=== PATIENT | female | born 1970 | race Caucasian/White ===

== ENCOUNTER 2019-12-09 08:46 | Emergency (ER) | payer MEDICAID, SELFPAY ==
[2019-12-09 09:48] VITALS: BP 201/115; PULSE 105; RESP 16; TEMP 37; O2SAT 98; BMI 26.2
--- NOTE | 2019-12-09 10:02 | XR_ITS ---
EXAMINATION: XR CHEST CLINICAL INFORMATION: Dry cough, bilateral posterior chest pain. COMPARISON: Chest radiographs 03/05/2018, 10/28/2016 TECHNIQUE: 2 views of the chest were obtained. FINDINGS: The lungs are clear. There is no pneumothorax, airspace consolidation, pleural reaction, or effusion. There is an incidental chronic calcified granuloma left lateral upper lobe similar to prior studies dating back to 2017. The heart is normal in size. The hilar and mediastinal contours and visualized bony structures are unremarkable. IMPRESSION: Unremarkable examination.
[2019-12-09] MEDS: Albuterol/Iprat 2.5/0.5MG 3 ML AMPUL.NEB 5 ML INHALE (10:29)
[2019-12-09 10:43] LABS: MANUAL DIFF FLAG NO
[2019-12-09 10:47] LABS: Basophils Percent Auto 0.2 % (0-2); Eosinophils Absolute Auto 0.1 X10*3/uL (0.0-0.4); Eosinophils Percent Auto 1.2 % (0-4); Hematocrit 35.6 % (37-47); Hemoglobin 12.1 g/dl (12.0-16.0); Imm Gran Abs Auto 0.01 X10*3/uL (0.00-0.03); Imm Gran Pct Auto 0.2 % (0.0-0.4); Lymphocytes Absolute Auto 1.2 X10*3/uL (1.2-4.9); Lymphocytes Percent Auto 29.3 % (20-40); Mean Corpuscular Hemoglobin 28.7 pg (27.0-33.0); Mean Corpuscular Volume 84.6 fL (80-98); Mean Platelet Volume 12.3 fL (9.4-12.3); Monocytes Absolute Auto 0.3 X10*3/uL (0.1-1.2); Monocytes Percent Auto 8.3 % (2-11); Neutrophils Absolute Auto 2.5 X10*3/uL (2.0-8.3); Neutrophils Percent Auto 60.8 % (45-73); Platelet Count 143 X10*3/uL (160-400); Red Blood Count 4.21 X10*6/uL (4.20-5.50); Red Cell Distribution Width 12.4 % (11.0-16.0); White Blood Count 4.1 X10*3/uL (4.8-10.8)
[2019-12-09 10:53] LABS: INTERNATIONAL NORM RATIO 1.1 (0.9-1.1); Prothrombin Time 12.8 SEC (10.8-13.0)
[2019-12-09 10:57] LABS: D Dimer < 200 NG/ML
[2019-12-09 11:18] LABS: Alanine Aminotransferase 6 U/L (0-31); Albumin Level 4.3 g/dL (3.5-5.0); Alkaline Phosphatase 45 U/L (39-117); Anion Gap 11 (12-20); Aspartate Amino Transferase 12 U/L (5-31); Bilirubin Direct 0.2 mg/dL (0.0-0.5); Bilirubin Total 0.5 mg/dL (0.0-1.0); Blood Urea Nitrogen 9 mg/dL (9-16); Calcium 8.9 mg/dL (8.4-10.2); Carbon Dioxide 27 mmol/L (22-29); Chloride 107 mmol/L (96-108); Creatinine Clr Calc Pharmacy 75.4; Estimated Glomerular Filt Rate > 60; Glucose Random 93 mg/dL (60-115); Potassium 3.6 mmol/l (3.3-5.1); Sodium 141 mmol/L (135-145); Total Protein 6.5 g/dL (6.5-8.0)
[2019-12-09] MEDS: Cyclobenzaprine HCl 10 MG TABLET PO (11:37)
[2019-12-09] MEDS: guaiFEN/Codeine SF 200/20/10ML 10 ML LIQUID PO (11:37)
[2019-12-09] MEDS: Acetaminophen 325 MG TABLET 650 MG PO (11:38)
[2019-12-09 11:40] VITALS: BP 134/74; PULSE 74; RESP 16
[2019-12-09 11:41] LABS: Procalcitonin < 0.02 ng/mL
--- NOTE | 2019-12-09 11:54 | ED_ITS ---
HPI - Asthma General Chief Complaint: Back Pain/Injury Stated Complaint: BACK PAIN Time Seen by Provider: 12/09/19 09:39 Source: patient Mode of arrival: ambulatory Limitations: no limitations History of Present Illness HPI Narrative: 49yoF c PMHx of asthma presenting to the ED c c/o worsening dry cough c posterior lung pain c wheezing. reports she has been using her albuterol inhaler with mild symptomatic relief. Reports she has a nebulizer machine which she has not used at this time. Reports she has the appointment with a rollway worker coming up. Denies any fevers, chills, body aches, ear pain, sore throat, mucus production, chest pain, extremity swelling, pitting edema to extremities, weakness or any other symptoms complaints or concerns. Denies any recent travel or sick contacts. Related Data Allergies Allergy/AdvReac Type Severity Reaction Status Date / Time aspirin [ASPIRIN] Allergy Unknown RASH Verified 12/09/19 09:48 Review of Systems Review of Systems: Yes all other systems are reviewed and are negative PMFSH Past Medical History Attestation statement: The following information was validated with the patient. Medical History No known health problems Social History Social History Smoking Status: Never smoker Use of substances other than those prescribed or required for medical reasons: No Advance Directives: No Advance Directives Information Provided: No Physical Exam Vital Signs: Vital Signs: Vital Signs Temp Pulse Resp BP Pulse Ox 12/09/19 11:40 74 16 134/74 12/09/19 09:48 98.6 F 105 H 16 201/115 H 98 Body Mass Index 26.2 Const: General: cooperative, healthy appearing, comfortable, no acute distress, well developed, alert, awake and Physically active Nutritional Appearance: average body habitus and well nourished Orientation/consciousness: patient oriented x3 Limitations: no limitations HENMT: Head: Yes normal to inspection, Yes No palpable skull fracture present, Yes normocephalic and Yes atraumatic Ears: hearing grossly normal bilaterally General nose exam: Normal external nose present Face and sinus: Yes normal facial exam Mouth: moist mucous membranes Eyes: General: appearance normal, both eyes and all related structures Visual Sev[place]: normal visual sevilla by confrontation Alignment and Position: alignment normal Periorbital: periorbital findings normal Eyelids: Yes eyelids normal Conjunctivae: conjunctivae normal Sclerae: sclerae normal Pupils: Equal, round and reactive pupils present EOM: EOMs intact bilaterally Neck: Neck: Yes normal visual inspection, Yes full ROM, Yes no lymphadenopathy, Yes no meningeal signs, Yes trachea midline and Yes supple Chest: Chest palpation & inspection: normal inspection of the chest Resp: Effort & Inspection: normal respiratory effort, able to speak in complete sentences, audible wheezes, Actively coughing, respiratory effort not d ecreased, no grunting, not labored, no nasal flaring, no paradoxical thoraco- abdom movements, no pursed lip breathing, no respiratory distress, no retractions, no segmental paradox chest wall movement, no stridor, not tachypneic, no tracheal deviation, no tripod positioning, no use of accessory muscles, No prolonged expiratory phase and symmetric chest movement Auscultation: clear to auscultation bilaterally, no crackles, no rales, no rhonchi, wheezes expiratory wheezes, inspiratory wheezes and throughout and diminished lung sounds diffuse Cardio: Rate: regular rate Rhythm: regular rhythm Heart sounds: S1 normal heart sound present and S2 normal heart sound present Peripheral pulses: Peripheral pulses 2+ throughout GI: Inspection: Yes normal to inspection Palpation (GI): Soft to palpation, nontender and No hepatosplenomegaly present Percussion: Yes normal to percussion Auscultation: normal bowel sounds : General: Yes no CVA tenderness Back/Spine/Pelvis: Back: no CVA tenderness Cervical Spine: normal cervical lordosis and cervical ROM normal Thoracic/Lumbar Spine: thoracic and lumbar spine normal to inspection and thoraco-lumbar ROM normal Skin: General skin exam: no rashes or lesions noted, elasticity normal and turgor normal Trauma: no lacerations or abrasions Wounds: no wounds Hair: normal Nails: normal Neuro: General: patient oriented x3 and no meningeal signs Cranial nerves: Yes CN's II-XII intact bilaterally and Yes Equal, round and reactive pupils present Cognition (Neuro): normal cognition Gait exam (Neuro): Normal gait present Motor exam (neuro): 5/5 motor strength present throughout Extrem: General: Yes normal to inspection, Yes full ROM, Yes capillary refill normal, Yes no clubbing, cyanosis or edema, No no pedal edema, No no calf te nderness, Yes normal gait and No edema Right upper extremity: normal to inspection, full ROM and normal capillary refill; no edema Left upper extremity: normal to inspection, full ROM and normal capillary refill; no edema Right lower extremity: normal to inspection, full ROM and normal capillary refill; no edema Left lower extremity: normal to inspection, full ROM and normal capillary refill; no edema Psych: Appearance: grossly normal and well kempt Mental Status: mental status grossly normal Speech and movement: Normal speech and movement present and Clear speech present Affect: normal affect Attitude: cooperative Thought process: Normal thought process present Thought content: Normal thought content present Insight: Good insight present (Psych) Judgement: Good judgement present (Psych) Course Course Course Narrative: 49yoF c PMHx of asthma presenting to the ED c c/o worsening dry cough c posterior lung pain c wheezing. reports she has been using her albuterol inhaler with mild symptomatic relief. Reports she has a nebulizer machine which she has not used at this time. Reports she has the appointment with a rollway worker coming up. Denies any fevers, chills, body aches, ear pain, sore throat, mucus production, chest pain, extremity swelling, pitting edema to extremities, weakness or any other symptoms complaints or concerns. Denies any recent travel or sick contacts. - Concern for pneumonia vs COVID vs pulmonary embolism vs asthma exacerbation. - Plan: Labs Including COVID labs, D-dimer, chest x-ray. Provide breathing treatment along with a muscle relaxer and cough medicine then re-evaluate. Reevaluation(s) Reevaluation #1: Patient's white blood cell count 4.1 otherwise all other labs are within normal limits. D-dimer less than 200 therefore PE unlikely at this time. Chest x-ray revealed incidental chronic calcified granuloma left lateral upper lobe similar to prior studies dating back to 2017 no evidence of pneumonia or any other acute processes. I discussed this with the patient and she was not told back in 2017 therefore will give her a printout and instruct her to follow up with her primary care provider and her rollway worker about the incidental calcified granuloma in her left upper lobe. Patient reports she feels better after the breathing treatment and her exam improved she no longer has any wheezing on expiratory or inspiratory breathing. Her blood pressure went down to 134/74 and her pulse is now at 74 both has improved. Will DC home with symptomatic treatment along with antibiotics and instructions to return if any new or worsening symptoms. Will also test for COVID. Instructions follow- up with primary care provider and rollway worker. Patient understands agrees with this plan. [facility] - Asthma Medical Records Attestation: I reviewed the patient's medical records. Lab Data Attestation: I reviewed the patient's lab results. Result diagrams: 12/09/19 10:37 12/09/19 10:36 Labs: Lab Results 12/09/19 12/09/19 12/09/19 Range/Units 10:36 10:36 10:36 WBC (4.8-10.8) X10*3/uL RBC (4.20-5.50) X10*6/uL Hgb (12.0-16.0) g/dl Hct (37-47) % MCV (80-98) fL MCH (27.0-33.0) pg MCHC (31.0-35.0) g/dl RDW (11.0-16.0) % Plt Count (160-400) X10*3/uL MPV (9.4-12.3) fL Immature Gran % (Auto) (0.0-0.4) % Neut % (Auto) (45-73) % Lymph % (Auto) (20-40) % [place] % (Auto) (2-11) % Eos % (Auto) (0-4) % Baso % (Auto) (0-2) % Lymph # (Auto) (1.2-4.9) X10*3/uL [place] # (Auto) (0.1-1.2) X10*3/uL Eos # (Auto) (0.0-0.4) X10*3/uL Baso # (Auto) (0.0-0.2) X10*3/uL Abs Immat Gran (auto) (0.00-0.03) X10*3/uL Absolute Neuts (auto) (2.0-8.3) X10*3/uL Absolute Nucleated RBC (0.0-0.012) X10*3/uL Nucleated RBC % (auto) (0.0-0.2) /100WBC Hold Purple Top SEE NOTE PT 12.8 (10.8-13.0) SEC INR 1.1 (0.9-1.1) D-Dimer < 200 NG/ML Sodium 141 (135-145) mmol/L Potassium 3.6 (3.3-5.1) mmol/l Chloride 107 (96-108) mmol/L Carbon Dioxide 27 (22-29) mmol/L Anion Gap 11 L (12-20) BUN 9 (9-16) mg/dL Creatinine 0.79 (0.5-1.4) mg/dL Estim Creat Clear Calc 75.4 Estimated GFR > 60 Random Glucose 93 (60-115) mg/dL Calcium 8.9 (8.4-10.2) mg/dL Total Bilirubin 0.5 (0.0-1.0) mg/dL Direct Bilirubin 0.2 (0.0-0.5) mg/dL AST 12 (5-31) U/L ALT 6 (0-31) U/L Alkaline Phosphatase 45 (39-117) U/L Total Protein 6.5 (6.5-8.0) g/dL Albumin 4.3 (3.5-5.0) g/dL Procalcitonin ng/mL 12/09/19 10 Range/Units 10:37 10:37 WBC 4.1 L (4.8-10.8) X10*3/uL RBC 4.21 (4.20-5.50) X10*6/uL Hgb 12.1 (12.0-16.0) g/dl Hct 35.6 L (37-47) % MCV 84.6 (80-98) fL MCH 28.7 (27.0-33.0) pg MCHC 34.0 (31.0-35.0) g/dl RDW 12.4 (11.0-16.0) % Plt Count 143 L (160-400) X10*3/uL MPV 12.3 (9.4-12.3) fL Immature Gran % (Auto) 0.2 (0.0-0.4) % Neut % (Auto) 60.8 (45-73) % Lymph % (Auto) 29.3 (20-40) % [place] % (Auto) 8.3 (2-11) % Eos % (Auto) 1.2 (0-4) % Baso % (Auto) 0.2 (0-2) % Lymph # (Auto) 1.2 (1.2-4.9) X10*3/uL [place] # (Auto) 0.3 (0.1-1.2) X10*3/uL Eos # (Auto) 0.1 (0.0-0.4) X10*3/uL Baso # (Auto) 0.0 (0.0-0.2) X10*3/uL Abs Immat Gran (auto) 0.01 (0.00-0.03) X10*3/uL Absolute Neuts (auto) 2.5 (2.0-8.3) X10*3/uL Absolute Nucleated RBC 0.000 (0.0-0.012) X10*3/uL Nucleated RBC % (auto) 0.0 (0.0-0.2) /100WBC Hold Purple Top PT (10.8-13.0) SEC INR (0.9-1.1) D-Dimer NG/ML Sodium (135-145) mmol/L Potassium (3.3-5.1) mmol/l Chloride (96-108) mmol/L Carbon Dioxide (22-29) mmol/L Anion Gap (12-20) BUN (9-16) mg/dL Creatinine (0.5-1.4) mg/dL Estim Creat Clear Calc Estimated GFR Random Glucose (60-115) mg/dL Calcium (8.4-10.2) mg/dL Total Bilirubin (0.0-1.0) mg/dL Direct Bilirubin (0.0-0.5) mg/dL AST (5-31) U/L ALT (0-31) U/L Alkaline Phosphatase (39-117) U/L Total Protein (6.5-8.0) g/dL Albumin (3.5-5.0) g/dL Procalcitonin < 0.02 ng/mL Imaging Data Chest x-ray: Attestation: I personally reviewed and interpreted this imaging study as follows: Radiologist's impression: FINDINGS: The lungs are clear. There is no pneumothorax, airspace consolidation, pleural reaction, or effusion. There is an incidental chronic calcified granuloma left lateral upper lobe similar to prior studies dating back to 2017. The heart is normal in size. The hilar and mediastinal contours and visualized bony structures are unremarkable. IMPRESSION: Unremarkable examination.
[2019-12-09 12:44] LABS: Lactate Dehydrogenase 152 U/L (122-220); Magnesium 2.1 mg/dL (1.6-2.6)
[2019-12-09 13:04] LABS: Ferritin 55 ng/mL (10-250)
== END 2019-12-09 13:16 | disposition home or self-care (01) ==
PROVIDERS: Physician Assistant Medical; Emergency Provider Emergency Medicine; PCP Internal Medicine
DX: J45.909 Unspecified asthma, uncomplicated (principal); R05 Cough; Z20.828 Contact with and (suspected) exposure to other viral communicable diseases; Z79.899 Other long term (current) drug therapy
CPT/HCPCS: 36415; 71046; 80048; 80076; 82728; 83615; 83735; 84145; 85025; 85379; 85610; 87635; 99284

== ENCOUNTER 2019-12-29 14:15 | Outpatient (REF) | payer MEDICAID, SELFPAY ==
--- NOTE | 2019-12-29 | MM_ITS ---
EXAMINATION: MM DIAGNOSTIC DIGITAL BREAST TOMOSYNTHESIS, BILATERAL US BREAST, LEFT CLINICAL INFORMATION: Screening mammography and targeted left breast ultrasound. The lifetime risk of breast cancer based on the Tyrer-Cuzick Model is 7.9%. COMPARISON: Mammography: 12/06/2018 and studies dating back to 10/16/2011. TECHNIQUE: Digital breast tomosynthesis is performed in both the craniocaudal and mediolateral oblique views along with computer-aided detection (CAD). Synthesized 2D images are generated from the tomosynthesis. Targeted left breast ultrasound. FINDINGS: The breasts are extremely dense, which lowers the sensitivity of mammography (ACR BI-RADS breast composition Category d). There are again noted to be multiple stable smoothly circumscribed nodular densities within the right breast. No new more suspicious dominant mass or suspicious grouping of microcalcifications is identified. There are multiple stable circumscribed densities seen within the left breast. No new abnormal dominant mass or suspicious grouping of microcalcifications is identified. Ultrasound left breast 9 o'clock position, 2 cm from nipple, demonstrates a stable smoothly marginated hypoechoic lesion without internal vascularity and with increased through-sound transmission. No distal sound shadowing. This likely represents a fibroadenoma and has been stable since study of 11/27/2017. Results are discussed with the patient at time of visit. MM/MM tomosynthesis diagnostic BI IMPRESSION: Stable appearance of the breasts with no new abnormal dominant mass or suspicious grouping of microcalcifications. ASSESSMENT: BI-RADS 2: Benign. RECOMMENDATION: Routine annual mammography screening due in 12 months. This patient's information was entered into a reminder system with a target due date for their next mammogram.
== END 2019-12-29 14:16 | disposition home or self-care (01) ==
LOC: HO.MAMMO 14:15
PROVIDERS: PCP Internal Medicine; Visit Provider Advanced Practice Midwife
DX: N63.20 Unspecified lump in the left breast, unspecified quadrant (principal)
CPT/HCPCS: 76642; 77062; 77066

== ENCOUNTER → 2020-01-12 12:32 | Outpatient (BNVA) | payer MEDICAID, SELFPAY | PROVIDERS: PCP Internal Medicine; Referring Provider Internal Medicine; Visit Provider Nurse Practitioner Family | DX: Z13.89 Encounter for screening for other disorder (principal) ==

== ENCOUNTER 2020-01-31 13:36 | Outpatient (REF) | payer MEDICAID, SELFPAY ==
[2020-02-03 15:47] LABS: HPV mRNA E6/E7 rflx Not Detected (Not Detected)
== END 2020-01-31 13:37 | disposition home or self-care (01) ==
LOC: HO.LAB 13:36
PROVIDERS: Visit Provider Advanced Practice Midwife
DX: Z01.419 Encounter for gynecological examination (general) (routine) without abnormal findings (principal)
CPT/HCPCS: 87624; 87625; 88141; 88142

== ENCOUNTER 2020-03-17 10:10 | Emergency (ER) | payer MEDICAID, SELFPAY ==
[2020-03-17 10:18] VITALS: BP 128/59; PULSE 68; RESP 18; TEMP 36.6; O2SAT 95; BMI 25.6
--- NOTE | 2020-03-17 10:40 | XR_ITS ---
EXAMINATION: XR CHEST CLINICAL INFORMATION: Bilateral rib cage pain COMPARISON: Chest x-ray 12/09/2019 TECHNIQUE: 2 views of the chest were obtained. FINDINGS: Cardiac silhouette is normal in size. The lungs are well aerated. There is no lobar consolidation. No pleural effusion or pneumothorax. Tiny granuloma the left upper lobe again noted. Mild degenerative changes of the spine. XR/XR chest 2V IMPRESSION: Stable examination demonstrating no acute pulmonary pathology.
--- NOTE | 2020-03-17 10:55 | ED_ITS ---
HPI - Back Pain/Injury General Chief Complaint: Back Pain/Injury Stated Complaint: back pain Time Seen by Provider: 03/17/20 10:40 Source: patient Mode of arrival: ambulatory Limitations: no limitations History of Present Illness HPI Narrative: 49yoF c MHx of asthma, anemia, GERD and depression presenting to the ED with complaints of upper/mid/bilateral rib cage pain for the past 2 weeks due to coughing. Reports that she has a chronic cough due to asthma and for the past 2 weeks has been going into coughing fits despite using her albuterol inhalers and nebulizers. Denies any fevers, chills, headaches, dizziness, nausea/vomiting, jaw pain, chest pain, shortness of breath, sputum production, sore throat, runny nose or nasal congestion, dyspnea on exertion, orthopnea, palpitations, extremity edema or any other symptoms complaints or concerns at this time. Related Data Home Medications Medication Instructions Recorded Confirmed albuterol sulfate 90 mcg/actuation 2 puff INHALATION Q6H PRN 01/12/20 02/28/20 aerosol inhaler clonazepam 0.5 mg tablet 0.5 mg PO BID 01/12/20 02/28/20 fluticasone propionate 110 1 puff INHALATION BID 01/12/20 02/28/20 mcg/actuation HFA aerosol inhaler gabapentin 600 mg tablet 600 mg PO TID 01/12/20 02/28/20 sertraline 50 mg tablet 50 mg PO DAILY 01/12/20 02/28/20 Previous Rx's Medication Instructions Recorded azithromycin [Zithromax] See Rx Instructions PO .COMPLEX #6 12/09/19 tab codeine-guaifenesin 5 ml PO Q6H PRN 7 Days #473 ml 12/09/19 cyclobenzaprine 10 mg PO TID PRN #14 tab 12/09/19 bisacodyl 5 mg tablet,delayed 10 mg PO ONCE 1 Days #2 tab 01/12/20 release omeprazole 20 mg capsule,delayed 20 mg PO DAILY #30 cap 01/12/20 release polyethylene glycol 3350 17 17 g PO ONCE #510 g 01/12/20 gram/dose oral powder acetaminophen-codeine 1 tab PO Q8H PRN #10 tab 03/17/20 cyclobenzaprine 10 mg PO TID PRN #10 tab 03/17/20 Allergies Allergy/AdvReac Type Severity Reaction Status Date / Time aspirin [ASPIRIN] Allergy Unknown RASH Verified 12/09/19 09:48 Review of Systems Review of Systems: Constitutional : No trauma, No Weight loss, No Fever, No Chills, ENT/Mouth : No Hearing loss, No Ear Pain, No Nasal Congestion, No Sinus Pain, No Hoarseness, No sore throat, No Rhinorrhea, No Swallowing Difficulty Cardiovascular : No Chest Pain, No SOB Respiratory : + Cough, No Dyspnea Gastrointestinal : No Nausea, No Vomiting, No Diarrhea, No abdominal Pain, No Hematochezia, No Melena Genitourinary : No Dysuria, No Urinary Frequency, No Hematuria, No Urinary or Bowel Incontinence/retention Musculoskeletal : + Back pain, No neck pain, No joint stiffness, No joint swelling Skin : No Skin Lesions, No rash or signs of infection Neuro : No Weakness, No radiation, No Numbness, No Paresthesias, No headache, no loss of bowel or bladder incontinence, no saddle anesthesia Denies history of IV drug usage. Yes all other systems are reviewed and are negative [facility] Past Medical History Attestation statement: The following information was validated with the patient. Medical History Asthma Depression GERD (gastroesophageal reflux disease) Pernicious anemia Surgical History Hx of endoscopy Family History Family History Father History of heart attack Hx of type 1 diabetes mellitus Mother No problems noted. Social History Social History Alcohol intake: current Alcohol intake frequency: holidays/special occasions only Alcohol type: wine Smoking Status: Never smoker Advance Directives: No Advance Directives Information Provided: No Physical Exam Vital Signs: Vital Signs: Last Vital Signs Temp 97.8 F 03/17/20 10:18 Pulse 68 03/17/20 10:18 Resp 18 03/17/20 10:18 BP 128/59 L 03/17/20 10:18 Pulse Ox 95 03/17/20 10:18 Body Mass Index 25.6 vital signs have been reviewed as normal and appeared to be correct. Blood pressure normal. Heart rate normal. Respiration rate normal. Temperature normal. Oxygen saturation normal. Appearance: Alert. Oriented X3. No acute distress. Head: Normal external exam. Normocephalic. Atraumatic. Eyes: PERRLA. EOMI. Conjunctiva and sclera normal. Eyelids normal. ENT: Pharynx normal. Uvula midline. Moist mucous membranes. Neck: Normal inspection. Neck supple. FROM. No adenopathy. Thyroid Normal. No meningeal signs. No neck mass noted. CVS: Normal heart rate and rhythm. Heart sound normal. No murmurs noted. Pulses normal throughout. Respiratory: No respiratory distress. Painless inspiration. Breath sounds normal. No wheezes/rales/rhonchi noted. lateral/posterior bilateral aspect of ribs tender to palpation. No obvious deformities noted. No crepitus noted. No flail chest noted.. No accessory muscle usage noted or decreased air movement noted. Back: No CVA tenderness. Full range of motion noted. No obvious deformities, or edema. Mild para-spinal muscular tenderness from thoracic region. Full ROM in back/upper extremities and lower extremities. 5/5 strength hip extension/flexion, abduction, adduction. Straight leg raise test negative on right; Straight leg raise test negative on left; Reflexes normal ankle and knee bilaterally; EHL motor strength normal bilaterally Skin: Skin warm and dry. Normal skin color. Normal skin turgor. No rashes/lesions/lacerations noted. Extremities: Extremities exhibit normal range of motion. Extremities nontender. Neuro: Oriented X 3. No motor deficit. No sensory deficit. Reflexes normal. Course Course Course Narrative: 49yoF c MHx of asthma, anemia, GERD and depression presenting to the ED with complaints of upper/mid/bilateral rib cage pain for the past 2 weeks due to coughing. Reports that she has a chronic cough due to asthma and for the past 2 weeks has been going into coughing fits despite using her albuterol inhalers and nebulizers. - on exam patient is noted to have tenderness to palpation to bilateral paraspinous musculature of thoracic region and posterior/lateral aspect of rib cage. No obvious deformities. Patient is neuro intact bilateral and distally on all 4 extremities. Reflexes intact bilaterally and distally in all 4 extremities. Patient has and full range of motion of neck and lower back. Negative straight leg bilaterally. - Pt c likely muscular pain, but could be herniated disc. Neuro exam shows no d eficits. Not c/w AAA/epidural abscess/dissection.No high risk Hx (Incont, fever, immunosupp, recent surgery/LP, coag, signif trauma, wt loss, puls mass, hx/o Ca, TB, or IVDU) to warrant MRI/CT today. Not c/w Pyelo/UTI/kidney stone. Not cauda equina syndrome. Will obtain an x-ray to evaluate for possible pneumonia or any fractures or any other acute processes although no further imaging indicated at this time if chest x-ray negative will DC with symptomatic treatment instructions return if any new or worsening symptoms to follow up with primary care provider. Patient understands agrees the plan. MDM - Back Pain/Injury Medical Records Attestation: I reviewed the patient's medical records. Imaging Data Chest x-ray: Attestation: I personally reviewed and interpreted this imaging study as follows: Radiologist's impression: COMPARISON: Chest x-ray 12/09/2019 TECHNIQUE: 2 views of the chest were obtained. FINDINGS: Cardiac silhouette is normal in size. The lungs are well aerated. There is no lobar consolidation. No pleural effusion or pneumothorax. Tiny granuloma the left upper lobe again noted. Mild degenerative changes of the spine. XR/XR chest 2V IMPRESSION: Stable examination demonstrating no acute pulmonary pathology. Discharge Plan Discharge Clinical Impression: Thoracic back pain Qualifiers: Chronicity: acute Back pain laterality: bilateral Qualified Code(s): M54.6 - Pain in thoracic spine Chest wall muscle strain Qualifiers: Encounter type: initial encounter Qualified Code(s): S29.011A - Strain of muscle and tendon of front wall of thorax, initial encounter Patient Disposition: Home, Self-Care Instructions: Muscle Strain (ED) Prescriptions: New acetaminophen-codeine 300-30 mg tablet 1 tab PO Q8H PRN (Reason: pain) Qty: 10 RF: 0 cyclobenzaprine 10 mg tablet 10 mg PO TID PRN (Reason: muscle spasm) Qty: 10 RF: 0 No Action azithromycin [Zithromax] 250 mg tablet See Rx Instructions PO .COMPLEX Qty: 6 RF: 0 codeine-guaifenesin 7.5-225 mg/5 mL liquid 5 ml PO Q6H PRN (Reason: cold symptoms) 7 Days Qty: 473 RF: 0 cyclobenzaprine 10 mg tablet 10 mg PO TID PRN (Reason: muscle spasm) Qty: 14 RF: 0 clonazepam 0.5 mg tablet 0.5 mg PO BID RF: 0 sertraline 50 mg tablet 50 mg PO DAILY RF: 0 gabapentin 600 mg tablet 600 mg PO TID RF: 0 albuterol sulfate [ProAir HFA] 90 mcg/actuation HFA aerosol inhaler 2 puff inhalation Q6H PRN (Reason: Shortness Of Breath) RF: 0 Flovent HFA 110 mcg/actuation HFA aerosol inhaler 1 puff inhalation BID RF: 0 omeprazole 20 mg capsule,delayed release(DR/EC) 20 mg PO DAILY Qty: 30 RF: 2 bisacodyl [Dulcolax (bisacodyl)] 5 mg tablet,delayed release (DR/EC) 10 mg PO ONCE 1 Days Qty: 2 RF: 0 polyethylene glycol 3350 [Miralax] 17 gram/dose powder 17 g PO ONCE Qty: 510 RF: 0 Referrals: Ellen Humphrey MD [Primary Care Provider] - 2 days Print Language: British
== END 2020-03-17 11:53 | disposition home or self-care (01) ==
PROVIDERS: Emergency Provider Internal Medicine; PCP Internal Medicine
DX: S29.012A Strain of muscle and tendon of back wall of thorax, initial encounter (principal); S29.011A Strain of muscle and tendon of front wall of thorax, initial encounter; M54.6 Pain in thoracic spine; R07.81 Pleurodynia; X58.XXXA Exposure to other specified factors, initial encounter; Y93.9 Activity, unspecified; Y92.9 Unspecified place or not applicable; Y99.9 Unspecified external cause status; Z79.899 Other long term (current) drug therapy
CPT/HCPCS: 71046; 99283

== ENCOUNTER 2020-04-04 16:41 | Outpatient (REF) | payer MEDICAID, SELFPAY | END 2020-04-04 16:42 | disposition home or self-care (01) | LOC: HO.LAB 16:41 | PROVIDERS: Visit Provider Internal Medicine | DX: Z20.822 Contact with and (suspected) exposure to COVID-19 (principal) | CPT/HCPCS: 36415; C9803; U0003; U0005 ==

== ENCOUNTER 2020-07-27 13:35 | Day surgery (SDC) | payer MEDICAID, SELFPAY ==
[2020-07-27 14:35] VITALS: BMI 26.6
[2020-07-27 14:40] VITALS: BP 128/71; PULSE 68; RESP 16; TEMP 36.7; O2SAT 99
--- NOTE | 2020-07-27 14:53 | W.PM.OPN ---
Operative Note Operative Note Date of Service: 07/27/20 Narrative: Pre-op diagnosis: Colon cancer screening Post-op diagnosis: other (Colon polyps, diverticulosis, hemorrhoids) Procedure: COLONOSCOPY TILL CECUM WITH BIOPSIES AND SNARE POLYPECTOMY Consent: Indications for the procedure and potential complications of bleeding, perforation, reaction to medications and missed diagnosis were discussed with the patient and informed consent was obtained. Instrument: Olympus PCF H 190 L variable stiffness pediatric colonoscope Monitoring: Vital signs and clinical assessment, intermittent blood pressure monitoring, continuous EKG monitoring, Pulse oximetry and Carbon Dioxide monitoring were done throughout the procedure. Colon withdrawl time was 20 minutes. Procedure: The patient was placed in the left lateral decubitis position and pre-procedure medications were administered. After a digital rectal examination of the ano-rectum, the video colonoscope was inserted into the rectum and advanced through the colon to the cecum. The colonoscope was slowly withdrawn in a retrograde panoramic fashion and the colon mucosa was carefully examined including a retroflexed view of the rectum. Findings and interventions are described below. Procedure Difficulty: Without difficulty Findings: Terminal Ileum: Not evaluated Cecum: Normal Ascending Colon: A 5-6 mm sessile polyp in mid AC removed with the cold biopsy. A 1.5 - 2 cm sessile polyp in the mid ascending colon removed with hot snare Transverse Colon: Normal Descending Colon: Normal Sigmoid Colon: Moderate diverticulosis Rectum: Normal Ano-rectum: Moderate internal hemorrhoids Colon preparation: Good after some irrigation Impression and Post Procedure Diagnosis: Colonoscopy Findings: Two small to medium sized polyps removed Moderate diverticulosis seen in the []colon Moderate hemorrhoids on retroflexed exam. Plan: Await pathology results Patient has an appointment on 08/08/20 in the GI Clinic with Joan Lipscomb FNP-BC . Repeat Colonoscopy interval based on path results - in 3 years if polyps are adenomatous and 10 years if polyps are hyperplastic. Above findings were reviewed with the patient and colon polyps and diverticulosis handouts were given in the discharge area Surgeon: Tommy Villarreal MD Anesthesia: MAC (Patti Rutledge CRNA) Was an Event Promotions Coordinator used for this Procedure?: Yes Event Promotions Coordinator: Cynthia Chavis Estimated blood loss (mL): 0 Pathology: other (A- ASCENDING COLON POLYPS) Condition: stable Disposition: PACU
--- NOTE | 2020-07-27 14:53 | MHC.SHP ---
Pre-Procedural Eval Section A The patient is an INPATIENT: No The History & Physical has been completed within 30 days and I have reviewed it.: No Section B Chief Complaint: screening Details of Present Illness: Colon cancer screening Relevant Family History (Specify if Yes): No Relevant Social History: None Present Medications: see Short Stay Collaborative assessment Medical History: Significant History (Asthma Depression GERD (gastroesophageal reflux disease) No known health problems Pernicious anemia) History of Previous Operations: Relevant previous surgery/procedure and date(s) (Hx of endoscopy) Allergies: Allergies Allergy/AdvReac Type Severity Reaction Status Date / Time aspirin [ASPIRIN] Allergy Unknown RASH Verified 12/09/19 09:48 Review of Systems Sugical H&P ROS: Negative: Constitution, Cardiovascular, Respiratory and Gastrointestinal Exam Surgical H&P Exam: Normal: Heart, Normal: Lungs, Normal: Extremities and Normal: Abdomen Plan Diagnosis/Plan: Unchanged I have reviewed the history and physical and performed a pertinent physical examination on my patient. No changes have occurred unless specified.
[2020-07-27] MEDS: Sodium Phosphate,Mono-Dibasic 133 ML ENEMA PR (15:00)
--- NOTE | 2020-07-27 15:08 | PC.NURSE ---
PATIENT BAILEE FLEET ENEMA LYING ON LEFT SIDE. OUTPUT YELLOW WITH NO SOLIDS.
--- NOTE | 2020-07-27 15:22 | P.CONAN_ITS ---
[facility] Active Problems Active Problems: All Active Problems (Updated 03/18/20 @ 00:00 by Background Tyson whitlock) Hx of endoscopy (Acute) Pernicious anemia (Acute) GERD (gastroesophageal reflux disease) (Acute) Depression (Acute) Asthma (Acute) Well woman exam with routine gynecological exam (Acute) Past Medical History Medical History Asthma Depression GERD (gastroesophageal reflux disease) Pernicious anemia Family History Family History Father History of heart attack Hx of type 1 diabetes mellitus Mother No problems noted. Surgical History Surgical History Hx of endoscopy Social History Social History Alcohol intake: current Alcohol intake frequency: other Alcohol type: wine Patient Tobacco Use Status: Never used Tobacco Use of substances other than those prescribed or required for medical reasons: No Are you DNR?: No Advance Directives: No Advance Directives Information Provided: Yes Recently lost weight without trying: Yes How much weight loss: 2-13 pounds Nutrition Risks: No Nutritional Risk Patient : No FDLMP: MAY Meds Allergies Allergy/AdvReac Type Severity Reaction Status Date / Time aspirin [ASPIRIN] Allergy Unknown RASH Verified 12/09/19 09:48 Active Medications: Current Medications Generic Name Dose Route Start Last Admin Trade Name Freq PRN Reason Stop Dose Admin Sodium Biphosphate/Sodium Phosphate 133 ml 07/27/20 15:16 07/27/20 15:00 Sodium Phosphate,[place]-Dibasic 133 Ml Enema [place] 133 ml ONCE PRN Administration Poor Colonoscopy Prep Results Home Medications Medication Instructions Recorded Confirmed Last Taken Type albuterol sulfate 90 mcg/actuation 2 puff INHALATION Q6H PRN 01/12/20 02/28/20 Unknown History aerosol inhaler clonazepam 0.5 mg tablet 0.5 mg PO BID 01/12/20 02/28/20 Unknown History fluticasone propionate 110 1 puff INHALATION BID 01/12/20 02/28/20 Unknown History mcg/actuation HFA aerosol inhaler gabapentin 600 mg tablet 600 mg PO TID 01/12/20 02/28/20 Unknown History sertraline 50 mg tablet 50 mg PO DAILY 01/12/20 02/28/20 Unknown History Exam Exam Date and Time: July 27, 2020 1522 Height,Weight and Vital Signs: Height 5 ft 2 in Weight 66.224 kg Last Vital Signs Temp 98.0 F 07/27/20 14:40 Pulse 68 07/27/20 14:40 Resp 16 07/27/20 14:40 BP 128/71 07/27/20 14:40 Pulse Ox 99 07/27/20 14:40 Airway Mallampati Class: II TM Dist: >3cm Neck ROM: Full
[2020-07-27] MEDS: Lactated Ringers 1,000 ML 100 ML IVCONT (15:25)
--- NOTE | 2020-07-27 15:33 | HO.ANESPROP2 ---
[facility] Active Problems Active Problems: All Active Problems (Updated 03/18/20 @ 00:00 by Sana Mcwilliams) Hx of endoscopy (Acute) Pernicious anemia (Acute) GERD (gastroesophageal reflux disease) (Acute) Depression (Acute) Asthma (Acute) Well woman exam with routine gynecological exam (Acute) Past Medical History Medical History Asthma Depression GERD (gastroesophageal reflux disease) Pernicious anemia Family History Family History Father History of heart attack Hx of type 1 diabetes mellitus Mother No problems noted. Surgical History Surgical History Hx of endoscopy Social History Social History Alcohol intake: current Alcohol intake frequency: other Alcohol type: wine Patient Tobacco Use Status: Never used Tobacco Use of substances other than those prescribed or required for medical reasons: No Are you DNR?: No Advance Directives: No Advance Directives Information Provided: Yes Recently lost weight without trying: Yes How much weight loss: 2-13 pounds Nutrition Risks: No Nutritional Risk Patient : No FDLMP: MAY Meds Allergies Allergy/AdvReac Type Severity Reaction Status Date / Time aspirin [ASPIRIN] Allergy Unknown RASH Verified 12/09/19 09:48 Active Medications: Current Medications Generic Name Dose Route Start Last Admin Trade Name Freq PRN Reason Stop Dose Admin Lactated Ringer's 1,000 mls @ 100 mls/hr 07/27/20 15:30 07/27/20 15:25 Lr IVCONT 100 mls/hr .Q10H STEPHAN Administration Sodium Biphosphate/Sodium Phosphate 133 ml 07/27/20 15:16 07/27/20 15:00 Sodium Phosphate,[place]-Dibasic 133 Ml Enema NH 133 ml ONCE PRN Administration Poor Colonoscopy Prep Results Home Medications Medication Instructions Recorded Confirmed Last Taken Type albuterol sulfate 90 mcg/actuation 2 puff INHALATION Q6H PRN 01/12/20 02/28/20 Unknown History aerosol inhaler clonazepam 0.5 mg tablet 0.5 mg PO BID 01/12/20 02/28/20 Unknown History fluticasone propionate 110 1 puff INHALATION BID 01/12/20 02/28/20 Unknown History mcg/actuation HFA aerosol inhaler gabapentin 600 mg tablet 600 mg PO TID 01/12/20 02/28/20 Unknown History sertraline 50 mg tablet 50 mg PO DAILY 01/12/20 02/28/20 Unknown History Exam Exam Date and Time: July 27, 2020 1533 Height,Weight and Vital Signs: Height 5 ft 2 in Weight 66.224 kg Last Vital Signs Temp 98.0 F 07/27/20 14:40 Pulse 68 07/27/20 14:40 Resp 16 07/27/20 14:40 BP 128/71 07/27/20 14:40 Pulse Ox 99 07/27/20 14:40 Airway Mallampati Class: II TM Dist: >3cm Neck ROM: Full
[2020-07-27 16:22] VITALS: BP 112/64; PULSE 74; RESP 12; TEMP 36.4; O2SAT 100
[2020-07-27 16:30] VITALS: BP 114/62; PULSE 66; RESP 16; O2SAT 99
[2020-07-27 16:45] VITALS: BP 127/54; PULSE 62; RESP 17; TEMP 36.6; O2SAT 100
[2020-07-27 17:00] VITALS: BP 123/84; PULSE 64; RESP 16; O2SAT 99
== END 2020-07-27 17:10 | disposition home or self-care (01) ==
PROVIDERS: PCP Internal Medicine; Visit Provider Internal Medicine Gastroenterology
PROC: 0DJD8ZZ Inspection of Lower Intestinal Tract, Via Natural or Artificial Opening Endoscopic (ICD-10-PCS; CPT 45378; principal; 2020-07-27 13:50)
DX: Z12.11 Encounter for screening for malignant neoplasm of colon (principal); D12.2 Benign neoplasm of ascending colon; K57.30 Diverticulosis of large intestine without perforation or abscess without bleeding; K64.8 Other hemorrhoids; K21.9 Gastro-esophageal reflux disease without esophagitis; J45.909 Unspecified asthma, uncomplicated; D51.0 Vitamin B12 deficiency anemia due to intrinsic factor deficiency; F32.9 Major depressive disorder, single episode, unspecified
CPT/HCPCS: 45385; 45380; 88305

== ENCOUNTER → 2020-08-08 12:50 | Outpatient (BNVA) | payer MEDICAID, SELFPAY | PROVIDERS: PCP Internal Medicine; Referring Provider Internal Medicine; Visit Provider Nurse Practitioner Family | DX: K21.9 Gastro-esophageal reflux disease without esophagitis (principal); K59.00 Constipation, unspecified; D36.9 Benign neoplasm, unspecified site; Z98.890 Other specified postprocedural states | CPT/HCPCS: 99212 ==

== ENCOUNTER → 2020-09-24 15:08 | Outpatient (BNVA) | payer MEDICAID, SELFPAY | PROVIDERS: PCP Internal Medicine; Visit Provider Nurse Practitioner Family ==

== ENCOUNTER 2020-10-09 09:46 | Emergency (ER) | payer MEDICAID, SELFPAY ==
--- NOTE | ~2020-10-09 | XR_ITS ---
EXAMINATION: XR CHEST CLINICAL INFORMATION: Cough. COMPARISON: Prior chest radiographs, most recently 03/17/2020. TECHNIQUE: Frontal view of the chest was obtained. FINDINGS: No significant abnormality is noted involving the heart, lungs, mediastinum, bony thorax or soft tissues. A benign, calcified left upper lobe granuloma is redemonstrated, unchanged from prior chest radiographs including 12/17/2014. XR/XR chest 1V IMPRESSION: Unremarkable examination.
[2020-10-09 10:08] VITALS: BP 149/81; PULSE 75; RESP 16; TEMP 36.7; O2SAT 100; BMI 25.0
[2020-10-09 10:35] LABS: Glucose Urine UA NEG (NEG); Leukocyte Esterase Urine NEG (NEG); Nitrite Urine NEG (NEG); Specific Gravity - Urine 1.025 (1.005-1.025); UACC Culture Trigger NO; Urine Blood TRACE (NEG); Urine Ketones NEG (NEG); Urine Protein NEG (NEG-TRACE)
[2020-10-09 10:42] LABS: Appearance Urine CLEAR; Color Urine YELLOW
--- NOTE | 2020-10-09 10:57 | ED_ITS ---
HPI - General Adult General Chief complaint: General Medical Stated complaint: back pain rectal bleeding Time Seen by Provider: 10/09/20 10:06 Source: patient Mode of arrival: ambulatory Limitations: no limitations History of Present Illness HPI narrative: Patient presents to ED for cough body aches. Patient states coughing hard which caused her to have back pain. Patient state she is vaccinated against covid. Patienit denies any shortness of breath, chest pain, fever, chills, sore throat, weakness diziness, abdominal pain, hematuria, dysuria, or any recent trauma Related Data Home Medications Medication Instructions Recorded Confirmed albuterol sulfate 90 mcg/actuation 2 puff INHALATION Q6H PRN 01/12/20 02/28/20 aerosol inhaler (ProAir HFA) clonazepam 0.5 mg tablet 0.5 mg PO BID 01/12/20 02/28/20 fluticasone propionate 110 1 puff INHALATION BID 01/12/20 02/28/20 mcg/actuation HFA aerosol inhaler (Flovent HFA) gabapentin 600 mg tablet 600 mg PO TID 01/12/20 02/28/20 sertraline 50 mg tablet 50 mg PO DAILY 01/12/20 02/28/20 duloxetine 30 mg capsule,delayed 30 mg PO DAILY 09/24/20 release Previous Rx's Medication Instructions Recorded acetaminophen 300 mg-codeine 30 mg 1 tab PO Q8H PRN #10 tab 03/17/20 tablet cyclobenzaprine 10 mg tablet 10 mg PO TID PRN #10 tab 03/17/20 omeprazole 20 mg capsule,delayed 20 mg PO DAILY #30 cap 08/08/20 release docusate sodium 100 mg capsule 100 mg PO BEDTIME #30 cap 09/24/20 methylcellulose (laxative) 500 mg 500 mg PO DAILY #30 tab 09/24/20 tablet (Citrucel) benzonatate 100 mg capsule 100 mg PO TID PRN #18 cap 10/09/20 (Tessalon Perles) Allergies Allergy/AdvReac Type Severity Reaction Status Date / Time aspirin [ASPIRIN] Allergy Unknown RASH Verified 09/24/20 15:08 Review of Systems Constitutional: Constitutional: Reports as per HPI, Reports no additional constitutional complaints and Reports body ache(s) Eyes: Eyes: Reports as per HPI and Reports no additional eye complaints ENT: Reports system reviewed and no additional complaints, except as documented and Reports as per HPI Cardiovascular: Cardiovascular: Reports as per HPI and Reports no additional cardiovascular complaints Respiratory: Respiratory: Reports as per HPI, Reports no additional respiratory complaints and Reports cough Gastrointestinal: Gastrointestinal: Reports as per HPI and Reports no additional gastrointestinal complaints Musculoskeletal: Musculoskeletal: Reports no additional musculoskeletal complaints and Reports as per HPI Neurologic: Reports system reviewed and no additional complaints, except as documented and Reports as per HPI Psychiatric: Psychiatric: Reports no additional psychiatric complaints and Reports as per HPI Endocrine: Endocrine: Reports no additional endocrine complaints and Reports as per HPI [facility] Past Medical History Medical History Asthma Depression GERD (gastroesophageal reflux disease) Pernicious anemia Tubular adenoma Tubular adenoma Surgical History Hx of endoscopy Family History Family History Father History of heart attack Hx of type 1 diabetes mellitus Mother No problems noted. Social History Social History Alcohol intake: never Patient Tobacco Use Status: Never used Tobacco Use of substances other than those prescribed or required for medical reasons: No Advance Directives: No Advance Directives Information Provided: No Patient : No Physical Exam Vital Signs: Vital Signs: Last Vital Signs Temp 98.1 F 10/09/20 10:08 Pulse 75 10/09/20 10:08 Resp 16 10/09/20 10:08 BP 149/81 H 10/09/20 10:08 Pulse Ox 100 10/09/20 10:08 Body Mass Index 25.0 Const: General: cooperative, healthy appearing, comfortable, no acute distress, well developed, alert, awake and Physically active Orientation/consciousness: patient oriented x3 HENMT: Head: Yes normal to inspection, Yes No palpable skull fracture present, Yes normocephalic, Yes atraumatic and No abrasion Eyes: General: appearance normal, both eyes and all related structures Neck: Neck: Yes normal visual inspection, Yes full ROM, Yes no lymphadenopathy, Yes no meningeal signs, Yes trachea midline, Yes supple and No tender Chest: Chest palpation & inspection: normal inspection of the chest and normal palpation of entire chest wall Resp: Effort & Inspection: normal respiratory effort and able to speak in complete sentences Auscultation: clear to auscultation bilaterally Cardio: Jugular venous distension: no JVD Heart sounds: S1 normal heart sound present and S2 normal heart sound present GI: Inspection: Yes normal to inspection and No abdominal wall ecchymosis Palpation (GI): Soft to palpation, not firm, nontender, no guarding and not rigid : General: No CVA tenderness and Yes no CVA tenderness Back/Spine/Pelvis: Back: no CVA tenderness, No CVA tenderness and No back tenderness Skin: General skin exam: no rashes or lesions noted and elasticity normal Neuro: General: patient oriented x3, gait normal, no meningeal signs and CN's II-XI intact bilaterally Cranial nerves: Yes CN's II-XII intact bilaterally Extrem: General: Yes normal to inspection and Yes full ROM Course Course Course Narrative: Patient will have covid, chest xray, and UA ordered Reevaluation(s) Reevaluation #1: Covid swab, chest xray and UA were normal. Patient is safe for discharge. Time: 12:00 Medical Decision Making [facility] Narrative Medical decision making narrative: URI Lab Data Labs: Lab Results 10/09/20 10/09/20 Range/Units 10:16 10:16 Urine Color YELLOW Urine Appearance CLEAR Urine pH 6.0 (5.0-8.0) Ur Specific [place] 1.025 (1.005-1.025) Urine Protein NEG (NEG-TRACE) MG/DL Urine Glucose (UA) NEG (NEG) MG/DL Urine Ketones NEG (NEG) MG/DL Urine Blood TRACE (NEG) Urine Nitrite NEG (NEG) Ur Leukocyte Esterase NEG (NEG) Urine RBC 0-2 (0) /HPF Urine WBC 0-2 (0-4) /HPF Ur Squamous Epith Cells 2+ /LPF Urine Bacteria TRACE /LPF Coronavirus (PCR) NEGATIVE (Negative) Influenza Type A (PCR) NEGATIVE (Negative) Influenza Type B (PCR) NEGATIVE (Negative) RSV RNA Qual (PCR) NEGATIVE (Negative) Discharge Plan Discharge Clinical Impression: URI (upper respiratory infection) Patient Disposition: Home, Self-Care Instructions: Upper Respiratory Infection (ED) Additional Instructions: Return to the ED for chest pain, shortness of breath, weakness, dizziness, swelling of lower extremities, calf pain, or any other concerning symptoms. Prescriptions: New benzonatate [Tessalon Perles] 100 mg capsule 100 mg PO TID PRN (Reason: cough) Qty: 18 RF: 0 No Action acetaminophen-codeine 300-30 mg tablet 1 tab PO Q8H PRN (Reason: pain) Qty: 10 RF: 0 cyclobenzaprine 10 mg tablet 10 mg PO TID PRN (Reason: muscle spasm) Qty: 10 RF: 0 clonazepam 0.5 mg tablet 0.5 mg PO BID RF: 0 sertraline 50 mg tablet 50 mg PO DAILY RF: 0 gabapentin 600 mg tablet 600 mg PO TID RF: 0 albuterol sulfate [ProAir HFA] 90 mcg/actuation HFA aerosol inhaler 2 puff inhalation Q6H PRN (Reason: Shortness Of Breath) RF: 0 Flovent HFA 110 mcg/actuation HFA aerosol inhaler 1 puff inhalation BID RF: 0 duloxetine 30 mg capsule,delayed release(DR/EC) 30 mg PO DAILY RF: 0 docusate sodium 100 mg capsule 100 mg PO BEDTIME Qty: 30 RF: 3 Citrucel 500 mg tablet 500 mg PO DAILY Qty: 30 RF: 2 omeprazole 20 mg capsule,delayed release(DR/EC) 20 mg PO DAILY Qty: 30 RF: 6 Stand Alone Forms: Work/School Release Interventions: ED Discharge Assessment Last Done: 10/09/20 12:46 Discharge Date/Time: 10/09/20 12:48 Print Language: Icelandic
[2020-10-09 11:09] LABS: Influenza A PCR NEGATIVE (Negative); Influenza B PCR NEGATIVE (Negative); Resp Syncy Virus RNA Qual PCR NEGATIVE (Negative); SARS COV2 PCR INHOUSE NEGATIVE (Negative)
[2020-10-09 11:19] LABS: Bacteria Urine TRACE /LPF; RBC Urine 0-2 /HPF (0); Squamous Epithelial Cell Urine 2+ /LPF; WBC Urine 0-2 /HPF (0-4)
== END 2020-10-09 12:48 | disposition home or self-care (01) ==
PROVIDERS: Physician Assistant; Emergency Provider Internal Medicine; PCP Internal Medicine
DX: J06.9 Acute upper respiratory infection, unspecified (principal); Z20.822 Contact with and (suspected) exposure to COVID-19; R05 Cough
CPT/HCPCS: 0241U; 36415; 71045; 81001; 99283; 99284

== ENCOUNTER 2020-11-14 13:53 | Outpatient (REF) | payer MEDICAID, SELFPAY | END 2020-11-14 13:54 | disposition home or self-care (01) | LOC: HO.MAMMO 13:53 | PROVIDERS: PCP Internal Medicine; Visit Provider Advanced Practice Midwife | DX: Z13.89 Encounter for screening for other disorder (principal) ==

== ENCOUNTER → 2020-12-13 13:09 | Outpatient (BNVA) | payer MEDICAID, SELFPAY | PROVIDERS: Visit Provider Advanced Practice Midwife ==

== ENCOUNTER 2020-12-31 09:46 | Outpatient (REF) | payer MEDICAID, SELFPAY ==
--- NOTE | ~2020-12-31 | MM_ITS ---
EXAMINATION: MM SCREENING DIGITAL BREAST TOMOSYNTHESIS, BILATERAL CLINICAL INFORMATION: Screening. Asymptomatic. The lifetime risk of breast cancer based on the Tyrer-Cuzick Model is 8%. COMPARISON: Mammography: 12/29/2019, 12/06/2018, 11/27/2017, 02/05/2017 TECHNIQUE: Digital breast tomosynthesis is performed in both the craniocaudal and mediolateral oblique views along with computer-aided detection (CAD). Synthesized 2D images are generated from the tomosynthesis. FINDINGS: The breasts are heterogeneously dense, which may obscure small masses (ACR BI-RADS breast composition Category c). There is a fibronodular parenchymal pattern similar to prior exams. There is no developing density or significant mass or architectural abnormality. Accessory tissue low axillary tails are stable. Again, there are some calcifications mid 8:00 left breast and some rim calcifications involving an oil cyst mid 4:00 right breast. No significant changes from prior studies. MM/MM tomosynthesis screening BI IMPRESSION: No significant changes from prior exams. ASSESSMENT: BI-RADS 2: Benign RECOMMENDATION: Routine annual mammography screening. This patient's information was entered into a reminder system with a target due date for their next mammogram.
--- NOTE | ~2020-12-31 | US_ITS ---
EXAMINATION: US PELVIS CLINICAL INFORMATION: Left-sided pain. COMPARISON: None TECHNIQUE: Ultrasound of the pelvis is performed using both transabdominal and transvaginal transducers along with Doppler. Transvaginal imaging is performed due to inadequate visualization transabdominally. FINDINGS: The uterus is anteverted and retroflexed and measures 6.8 x 3.8 x 4 cm in dimension. No focal uterine lesion is seen. Uterine echotexture appears slightly heterogeneous in the fundus. The endometrium is difficult to define. The endometrium does not appear thickened measuring approximately 0.4 cm. There is a complex nabothian cyst in the cervix. The right ovary measures 1.9 x 1.7 x 1.3 cm and the left ovary measures 1.3 x 1.4 x 0.9 cm. There is a small 3 mm nonspecific echogenic focus in the right ovary. The ovaries are otherwise unremarkable. There is no fluid in the pelvis. US/US pelvic and transvaginal IMPRESSION: Normal-sized uterus. The uterine fundus appears slightly heterogeneous but no focal uterine lesion is seen. Endometrial is difficult to define but does not appear thickened. Normal-appearing ovaries.
== END 2020-12-31 09:47 | disposition home or self-care (01) ==
LOC: HO.MAMMO 09:46
PROVIDERS: Visit Provider Advanced Practice Midwife
DX: Z12.31 Encounter for screening mammogram for malignant neoplasm of breast (principal); R10.2 Pelvic and perineal pain
CPT/HCPCS: 76830; 76856; 77063; 77067

== ENCOUNTER → 2021-01-22 08:30 | Outpatient (BNVA) | payer MEDICAID, SELFPAY | PROVIDERS: Visit Provider Advanced Practice Midwife ==

== ENCOUNTER → 2021-01-25 14:19 | Outpatient (BNVA) | payer MEDICAID, SELFPAY | PROVIDERS: PCP Internal Medicine; Visit Provider Nurse Practitioner Family ==

== ENCOUNTER → 2021-04-26 14:24 | Outpatient (BNVA) | payer MEDICAID, SELFPAY | PROVIDERS: PCP Internal Medicine; Referring Provider Internal Medicine; Visit Provider Nurse Practitioner Family | DX: K59.01 Slow transit constipation (principal); K21.9 Gastro-esophageal reflux disease without esophagitis | CPT/HCPCS: 99212 ==

== ENCOUNTER 2021-09-27 12:47 | Outpatient (REF) | payer MEDICAID, SELFPAY ==
--- NOTE | ~2021-09-27 | XR_ITS ---
EXAMINATION: XR SHOULDER, LEFT CLINICAL INFORMATION: Pain COMPARISON: Previous chest x-ray most recent November 2019 TECHNIQUE: AP external rotation, Grashey, scapular Y, and axillary views of the left shoulder. FINDINGS: The bones and soft tissues are normal. No fracture. Glenohumeral and acromioclavicular alignment is anatomic with normal joint space. No abnormal soft tissue calcifications about the shoulder joints. Dense nodule in the left upper lobe unchanged probably representing a calcified granuloma XR/XR shoulder LT min 2V IMPRESSION: Normal left shoulder.
== END 2021-09-27 12:48 | disposition home or self-care (01) ==
LOC: HO.XRAY 12:47
PROVIDERS: PCP Internal Medicine; Visit Provider Internal Medicine
DX: M25.512 Pain in left shoulder (principal)
CPT/HCPCS: 73030

== ENCOUNTER 2021-12-18 10:10 | Outpatient (REF) | payer MEDICAID, SELFPAY ==
[2021-12-20 03:36] LABS: HPV mRNA E6/E7 rflx Not Detected (Not Detected)
== END 2021-12-18 10:11 | disposition home or self-care (01) ==
LOC: HO.LNP 10:10
PROVIDERS: Visit Provider Advanced Practice Midwife
DX: Z01.419 Encounter for gynecological examination (general) (routine) without abnormal findings (principal)
CPT/HCPCS: 87624; 88142

== ENCOUNTER 2022-01-03 10:22 | Outpatient (REF) | payer MEDICAID, SELFPAY ==
--- NOTE | ~2022-01-03 | MM_ITS ---
EXAMINATION: MM SCREENING DIGITAL BREAST TOMOSYNTHESIS, BILATERAL CLINICAL INFORMATION: Screening. Asymptomatic. COMPARISON: Mammography: 12/31/2020, 12/29/2019, 12/06/2018 TECHNIQUE: Digital breast tomosynthesis is performed in both the craniocaudal and mediolateral oblique views along with computer-aided detection (CAD). Synthesized 2D images are generated from the tomosynthesis. FINDINGS: The breasts are heterogeneously dense, which may obscure small masses (ACR BI-RADS breast composition Category c). Parenchymal pattern is similar to prior studies and there is no interval mass or developing density or architectural abnormality. There is a smooth circumscribed oval mass again seen posterior medial left breast stable from prior studies. The axilla and skin contours are unremarkable. There are a few calcifications mid medial right breast, stable from prior studies. Loosely grouped calcifications mid 8:00 left breast appear increased over time. Patient will be recalled for additional imaging. MM/MM tomosynthesis screening BI IMPRESSION: Left: -Loosely grouped calcifications mid 8:00, increased from prior studies. -Stable circumscribed oval mass posterior medial breast. Right: -No significant changes from prior studies. ASSESSMENT: BI-RADS 0: Incomplete - Need Additional Imaging Evaluation RECOMMENDATION: 1. Additional views of the left breast (magnification CC, magnification LM). 2. Radiology department staff will contact the patient for additional imaging. This patient's information was entered into a reminder system with a target due date for their next mammogram.
== END 2022-01-03 10:23 | disposition home or self-care (01) ==
LOC: HO.MAMMO 10:22
PROVIDERS: PCP Internal Medicine; Visit Provider Advanced Practice Midwife
DX: Z12.31 Encounter for screening mammogram for malignant neoplasm of breast (principal)
CPT/HCPCS: 77063; 77067

== ENCOUNTER 2022-01-15 14:56 | Outpatient (REF) | payer MEDICAID, SELFPAY ==
--- NOTE | ~2022-01-15 | MM_ITS ---
EXAMINATION: MM DIAGNOSTIC DIGITAL MAMMOGRAPHY, LEFT CLINICAL INFORMATION: Recall from screening for loosely grouped calcifications mid 8:00 position. COMPARISON: Mammography: 01/03/2022, 12/31/2020, 12/29/2019 TECHNIQUE: Digital mammography is performed in the following views: Magnification CC, magnification LM x2 FINDINGS: The breasts are heterogeneously dense, which may obscure small masses (ACR BI-RADS breast composition Category c). The additional magnification views show coarse calcifications, possibly fibroadenomatous changes. Management plan is for short interval six-month follow-up mammography to include magnification views. Results are discussed with the patient at time of visit. MM/MM added views LT IMPRESSION: -Coarse calcifications possibly fibroadenomatous change. ASSESSMENT: BI-RADS 3: Probably Benign RECOMMENDATION: Diagnostic left mammography in 6 months. This patient's information was entered into a reminder system with a target due date for their next mammogram.
== END 2022-01-15 14:57 | disposition home or self-care (01) ==
LOC: HO.MAMMO 14:56
PROVIDERS: PCP Internal Medicine; Visit Provider Advanced Practice Midwife
DX: R92.1 Mammographic calcification found on diagnostic imaging of breast (principal)
CPT/HCPCS: 77065

== ENCOUNTER 2022-07-15 12:33 | Outpatient (REF) | payer MEDICAID, SELFPAY ==
--- NOTE | ~2022-07-15 | MM_ITS ---
EXAMINATION: MM DIAGNOSTIC DIGITAL BREAST TOMOSYNTHESIS, LEFT CLINICAL INFORMATION: Short interval six-month follow-up probable benign calcifications mid 8:00 left breast, possibly fibroadenomatous. TC score 8%. COMPARISON: Mammography: 01/15/2022, 01/03/2022 (BI-RADS 0), 12/31/2020, ultrasound left breast 12/29/2019. TECHNIQUE: Digital breast tomosynthesis is performed in both the craniocaudal and mediolateral oblique views along with computer-aided detection (CAD). Synthesized 2D images are generated from the tomosynthesis. Additional magnification left CC and magnification left views are obtained. FINDINGS: The breasts are heterogeneously dense, which may obscure small masses (ACR BI-RADS breast composition Category c). There is fibronodular parenchymal pattern is similar to prior studies. 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 There is no developing density or interval mass or architectural abnormality. Left breast calcifications for follow-up medial breast are loosely grouped and coarse, suspected fibroadenomatous changes. No significant change from prior diagnostic exam. Calcifications will be reassessed again at time of annual bilateral mammography, due in 6 months. Results are discussed with the patient at time of visit. MM/MM tomosynthesis diagnostic LT IMPRESSION: -Probable benign calcifications medial breast, similar to prior diagnostic exam. ASSESSMENT: BI-RADS 3: Probably Benign RECOMMENDATION: Diagnostic mammography at time of annual bilateral exam, due in 6 months. This patient's information was entered into a reminder system with a target due date for their next mammogram.
== END 2022-07-15 12:34 | disposition home or self-care (01) ==
LOC: HO.MAMMO 12:33
PROVIDERS: PCP Internal Medicine; Visit Provider Advanced Practice Midwife
DX: R92.1 Mammographic calcification found on diagnostic imaging of breast (principal)
CPT/HCPCS: 77061; 77065

== ENCOUNTER → 2022-08-12 09:52 | Outpatient (BNVA) | payer MEDICAID, SELFPAY | PROVIDERS: Visit Provider Nurse Practitioner Family | DX: K21.9 Gastro-esophageal reflux disease without esophagitis (principal); K59.01 Slow transit constipation | CPT/HCPCS: 99212 ==

== ENCOUNTER → 2022-10-13 19:30 | Outpatient (BNV) | payer MEDICAID, SELFPAY | PROVIDERS: PCP Internal Medicine; Visit Provider Psychiatry & Neurology Neurology | DX: R06.83 Snoring (principal) | CPT/HCPCS: 95810 ==

== ENCOUNTER → 2022-10-13 20:30 | Outpatient (REF) | payer MEDICAID, SELFPAY | LOC: HO.SL 20:30 | PROVIDERS: PCP Internal Medicine; Visit Provider Internal Medicine | DX: G47.10 Hypersomnia, unspecified (principal); R06.83 Snoring | CPT/HCPCS: 95810 ==

== ENCOUNTER 2022-12-22 11:17 | Outpatient (AMB) | payer MEDICAID, SELFPAY ==
--- NOTE | 2022-12-22 11:30 | A.OFFVIS_ITS ---
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: No Information Interpreted: non-clinical & clinical Yardage Estimator: Yardage Estimator Present (Keisha SANDHU) Accompanied by: Self / Same As Patient Allergies aspirin [ASPIRIN] Allergy (Unknown, Verified 12/22/22 11:46) RASH Medication List - Last Reconciled 12/22/22 by Ana Paula Hernandez CNM acetaminophen-codeine 300-30 mg 1 tab PO Q8H PRN amlodipine 10 mg PO DAILY budesonide-formoterol 80-4.5 mcg/actuation (Symbicort) 2 puffs inhalation BID clonazepam 0.5 mg PO DAILY duloxetine 30 mg PO DAILY gabapentin 300 mg PO TID levalbuterol tartrate 45 mcg/actuation 1 puff inhalation Q6H PRN Post menopausal: Yes HPI YARDER BOSS annual exam HPI Details 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 She is not sexually active and has not been for very many years and does not remember when she has 3 children. She walks for exercise her primary care providers at the [facility] and she is taking pills now for her high blood pressure and they are working. On full discussion towards the end of the visit patient does admit that sometimes she does have some urinary stress incontinence. And sometimes she admits that she does not think she empties her bladder control completely. She does get up in the middle of the night to pee very often and she also when offered does not want a referral to physical therapy. She is getting mammograms every 6 months and she says they get reviewed by the doctor at the mammography Center and her next 1 will be coming up next month in December. [facility] Medical History (Updated 12/22/22 @ 12:23 by Ana Paula Hernandez CNM) Fibromyalgia Tubular adenoma Tubular adenoma Depression Pernicious anemia GERD (gastroesophageal reflux disease) Asthma Surgical History Hx of endoscopy Family History (Updated 12/22/22 @ 11:49 by Keisha Jackson CMA) Father History of heart attack Hx of type 1 diabetes mellitus Mother No problems noted. Maternal Aunt Uterus cancer Social History (Updated 12/22/22 @ 11:50 by Keisha Jackson CMA) Household Members: None Housing: Apartment Alcohol intake: current Alcohol intake frequency: holidays/special occasions only Alcohol type: wine Patient Tobacco Use Status: Former Tobacco user Current occupational status: disabled Sexual orientation: Straight/Heterosexual Gender identity: Female Female Reproductive History Menstrual Age of Menarche: 11 Age of menopause: 51 Total pregnancies: 3 Full term: 3 Number of Living Children: 3 Date of last pap smear: 12/18/21 Date of Mammogram: 07/15/22 Physical Exam Vital Signs: Last Vital Signs BP 110/68 12/22/22 11:31 BMI result Body Mass Index 25.8 Const General: healthy appearing, comfortable, no acute distress, well developed and alert Nutritional Appearance: average body habitus Orientation/consciousness: patient oriented x3 Limitations: no limitations HEENT Head: Yes normocephalic Neck Neck: Yes normal visual inspection Chest Chest palpation & inspection: normal inspection of the chest Breast/axilla inspection: normal inspection of the breasts and normal inspection of the axillae Breast/axilla palpation: normal palpation of the breasts and normal palpation of the axillae Resp Effort & Inspection: normal respiratory effort GI Inspection: Yes normal to inspection, No Abdominal wall edema and No distended Palpation (GI): Soft to palpation and nontender Other: Normal external exam vagina pink moist smooth consistent with some atrophic changes of menopause. Vagina pink smooth healthy appearing cervix is pink smooth multiparous healthy pink mucosa uterus is midposition slightly difficult to palpate but not enlarged nontender adnexa nontender very good tone with Kegel bladder did feel full despite patient voiding right before coming into the room General: Yes bladder normal to palpation External Female Exam: normal external appearance and normal appearance of the urethra Speculum Exam - Vagina: normal appearance of the vagina, normal palpation and normal vaginal discharge Speculum Exam - Cervix: normal appearance of the cervix, normal palpation and nontender Bimanual exam- vagina & uterus: normal bimanual exam, normal palpation, uterine size normal, bladder normal to palpation, consistency normal, normal palpation, uterine mobility normal, uterine shape normal, No Cervical tenderness present, non-tender and no cervical motion tenderness Bimanual Exam- Adnexa, other: normal adnexae, no masses, normal and No adnexal tenderness Neuro General: patient oriented x3 Results Reviewed Results Reviewed: Name: Giacomo Vladimir,Ellen Age/Sex: 51/F Attending: Ana Paula Hernandez CNM : 1970 Submitted by: Ana Paula Hernandez CNM Copies to: MR #: [id number] Status: DEP REF Collected: 12/18/21 Location: [facility] Received: 12/18/21 Interpretation Satisfactory for evaluation. Moderate inflammation. Negative for intraepithelial lesion or malignancy. HPV mRNA E6/E7: NOT DETECTED This assay detects E6/E7 viral messenger RNA (mRNA) from 14 high-risk HPV types (16, 18, 31, 33, 35, 39, 45, 51, 52, 56, 58, 59, 66, 68) HPV testing performed by [facility], [place], [place]. See reference laboratory pion of the EMR for entire report. Clinical Information LMP: Unknown Previous PAP test: 02/01/20, WNL Material Received ThinPrep-Cervical Electronically Signed By: LEANDRO Mcdermott (ASCP) 01/02/22 0843 The Pap Test is a screening procedure with the inherent possibility of both false negative and false positive results. Results should be interpreted in the context of historic and current clinical findings. Reliability of the Pap Test is enhanced by performing the test on a regular repetitive basis. Patient: Ellen Giang Age/Sex: 51/F MR#: [id number] Page 1 of 1 Assessment & Plan Assessment & Plan (1) Breast cancer screening: Code(s): Z12.39 - Encounter for other screening for malignant neoplasm of breast (2) Cervical cancer screening: Comment: 02/01/20 pap sat/nilm/HPV neg.//12/18/21 pap= neg w neg HPV. Code(s): Z12.4 - Encounter for screening for malignant neoplasm of cervix (3) Well woman exam with routine gynecological exam: Code(s): Z01.419 - Encounter for gynecological examination (general) (routine) without abnormal findings (4) Urinary retention with incomplete bladder emptying: Comment: See note declines PT referral discussed consciously trying to empty bladder at each void and not holding the urine for a long time. Code(s): R33.9 - Retention of urine, unspecified Plan -----Discussed in this visit the following: healthy balanced diet, regular and consistent exercise, getting recommended health screens, doing the best she can for her particular health concerns, kegel exercises, pap smear screening and followup recommendations, mammography screening and SBE, normal changes in cycles in her life stage--- .---I Had the patient and demonstrate a Kegel contraction at the end of the exam, ordered in order to explain a Kegel exercise, and instructed the patient on doing the same exercises several times a day with increasing strength each time. One useful to is to imagine pursestring around the vagina and pulling it tight and upwards as if raising the vagina, or imagining that her tight muscles are on the 1st floor and she is trying to pull them up to the 5th floor and then slowly letting them go down. To try to do these several times a day but focus on the quality and the strength of the exercises more than the quantity, and tried isolate just those muscles and not involve other body parts. More importantly I discussed the importance of not holding her urine in over filling her bladder and trying to be conscious that she does empty her bladder at each void and to void more frequently. This should help decrease any episode stress incontinence. If she still has issues discuss this with her primary care provider who may offer referrals as appropriate. She declined a PT referral today but did except Kegel information although I shared that the Kegel handout does not really speak to this issue, and she has very good tone Continue with her mammograms as per her ordering provider and following up with her primary. Coding Level of Care Code Est Pt Prev Care 40-64y(65773) Diagnoses Breast cancer screening Z12.39 Cervical cancer screening Z12.4 Well woman exam with routine gynecological exam Z01.419 Urinary retention with incomplete bladder emptying R33.9
[2022-12-22 11:31] VITALS: BP 110/68; BMI 25.8
== END 2022-12-22 12:19 | disposition home or self-care (01) ==
LOC: HO.HWS 11:17
PROVIDERS: PCP Internal Medicine; Visit Provider Advanced Practice Midwife
DX: Z12.39 Encounter for other screening for malignant neoplasm of breast (principal); Z12.4 Encounter for screening for malignant neoplasm of cervix; Z01.419 Encounter for gynecological examination (general) (routine) without abnormal findings; R33.9 Retention of urine, unspecified
CPT/HCPCS: 99396

== ENCOUNTER → 2022-12-22 11:17 | Outpatient (BNVA) | payer MEDICAID, SELFPAY | PROVIDERS: PCP Internal Medicine; Visit Provider Advanced Practice Midwife | DX: Z01.419 Encounter for gynecological examination (general) (routine) without abnormal findings (principal); Z12.39 Encounter for other screening for malignant neoplasm of breast; Z12.4 Encounter for screening for malignant neoplasm of cervix; R33.9 Retention of urine, unspecified | CPT/HCPCS: 99396 ==

== ENCOUNTER 2023-01-13 12:26 | Outpatient (REF) | payer MEDICAID, SELFPAY ==
--- NOTE | ~2023-01-13 | MM_ITS ---
EXAMINATION: MM DIAGNOSTIC DIGITAL BREAST TOMOSYNTHESIS, BILATERAL CLINICAL INFORMATION: Follow-up left breast calcifications, originally BI-RADS 0 01/03/2022. COMPARISON: Mammography: 07/15/2022, 01/15/2022, 01/03/2022, 12/31/2020, 12/29/2019, 12/06/2018. TECHNIQUE: Digital breast tomosynthesis is performed in both the craniocaudal and mediolateral oblique views along with computer-aided detection (CAD). Synthesized 2D images are generated from the tomosynthesis. In addition, spot magnification 2-D left CC and 90 degree mediolateral views were obtained. FINDINGS: The breasts are extremely dense, which lowers the sensitivity of mammography (ACR BI-RADS breast composition Category d). Diagnostic views demonstrate loosely grouped benign-appearing somewhat coarse calcifications in the lower inner left breast. These have benign characteristics and are suitable for follow-up in one year. There are stable oval masses in both breasts, unchanged from multiple prior exams and benign. Some demonstrating coarse calcifications suggestive of degenerating fibroadenomas. There is no new mass, new area of parenchymal distortion, or suspicious pleomorphic calcifications. MM/MM tomosynthesis diagnostic BI IMPRESSION: There are no findings suspicious for malignancy in either breast. Calcifications in the lower inner left breast have a somewhat coarse and benign appearance and are suitable for follow-up in one year, to include standard magnification views. Otherwise, stable additional benign findings in both breasts. ASSESSMENT: BI-RADS BI-RADS 3 - Probably benign finding(s) - 12 month follow-up suggested RECOMMENDATION: 12 month diagnostic follow up Results were provided to the patient at time of visit by the technologist. This patient's information was entered into a reminder system with a target due date for their next mammogram.
== END 2023-01-13 12:27 | disposition home or self-care (01) ==
LOC: HO.MAMMO 12:26
PROVIDERS: PCP Internal Medicine; Visit Provider Internal Medicine
DX: R92.1 Mammographic calcification found on diagnostic imaging of breast (principal)
CPT/HCPCS: 77062; 77066

== ENCOUNTER → 2023-01-13 13:30 | Outpatient (BNV) | payer MEDICAID, SELFPAY | PROVIDERS: PCP Internal Medicine; Visit Provider Radiology Diagnostic Radiology | DX: R92.1 Mammographic calcification found on diagnostic imaging of breast (principal); D24.1 Benign neoplasm of right breast; D24.2 Benign neoplasm of left breast | CPT/HCPCS: 77062; 77066 ==

== ENCOUNTER 2023-05-01 10:14 | Outpatient (REF) | payer MEDICAID, SELFPAY ==
[2023-05-01 11:26] LABS: MANUAL DIFF FLAG NO
[2023-05-01 11:34] LABS: Basophils Percent Auto 0.2 % (0-2); Eosinophils Percent Auto 0.6 % (0-4); Hematocrit 39.9 % (37.0-47.0); Imm Gran Abs Auto 0.02 X10*3/uL (0.00-0.03); Imm Gran Pct Auto 0.4 % (0.0-0.4); Lymphocytes Absolute Auto 1.4 X10*3/uL (1.2-4.9); Lymphocytes Percent Auto 27.7 % (20-40); Mean Corpuscular HGB Conc 32.6 g/dl (31.0-35.0); Mean Corpuscular Hemoglobin 27.8 pg (27.0-33.0); Mean Corpuscular Volume 85.4 fL (80.0-98.0); Mean Platelet Volume 11.9 fL (9.4-12.3); Monocytes Absolute Auto 0.3 X10*3/uL (0.1-1.2); Monocytes Percent Auto 5.7 % (2-11); Neutrophils Absolute Auto 3.2 x10*3/uL (2.0-8.3); Neutrophils Percent Auto 65.4 % (45-73); Platelet Count 181 X10*3/uL (160-400); Red Blood Count 4.67 X10*6/uL (4.20-5.50); Red Cell Distribution Width 12.9 % (11.0-16.0); White Blood Count 4.9 X10*3/uL (4.8-10.8)
[2023-05-01 12:09] LABS: Estimated Average Glucose 105 mg/dL; Hemoglobin A1c % 5.3 % (<6.0)
[2023-05-01 13:09] LABS: Alanine Aminotransferase 14 U/L (0-31); Albumin Level 4.1 g/dL (3.5-5.0); Alkaline Phosphatase 73 U/L (39-117); Anion Gap 14 (12-20); Aspartate Amino Transferase 19 U/L (5-31); Bilirubin Direct 0.1 mg/dL (0.0-0.5); Bilirubin Total 0.4 mg/dL (0.0-1.0); Blood Urea Nitrogen 10 mg/dL (9-16); Calcium 9.5 mg/dL (8.4-10.2); Carbon Dioxide 30 mmol/L (22-29); Chloride 104 mmol/L (96-108); Cholesterol 215 mg/dL (<200); Estimated Glomerular Filt Rate > 60; Glucose Random 91 mg/dL (60-115); HDL Cholesterol 74 mg/dL (>40); LDL Cholesterol Calculated 125 mg/dL (<100); Potassium 3.8 mmol/L (3.3-5.1); Sodium 144 mmol/L (135-145); TSH reflex Free T4 3.23 uIU/mL (0.32-4.0); Total Protein 7.1 g/dL (6.5-8.0); Triglycerides 80 mg/dL (<150); Vitamin D 25-OH Total 31.2 ng/mL (>30)
[2023-05-01 13:23] LABS: Vitamin B12 235 pg/mL (200-900)
== END 2023-05-01 10:15 | disposition home or self-care (01) ==
LOC: HO.HHCL 10:14
PROVIDERS: Visit Provider Internal Medicine
DX: R53.82 Chronic fatigue, unspecified (principal)
CPT/HCPCS: 36415; 80048; 80061; 80076; 82306; 82607; 82746; 83036; 84443; 85025

== ENCOUNTER 2023-06-09 09:25 | Outpatient (AMB) | payer MEDICAID, SELFPAY ==
--- NOTE | 2023-06-09 09:30 | MHC.OFFVIS ---
Intake Vital Signs 06/09/23 09:33 Height 5 ft 2 in Weight 158 lb BMI 28.9 BP 129/68 Blood Pressure Location Lt brachial Position Sitting Pulse 71 Intake Visit Reasons: 10 mnth follow up Intake Note: Ellen presents in the office as a 10 month follow up. CC: She states that sometimes she has constipation at times but other than that she is feeling okay. 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 Discussed with patient the importance of staying upright for 3 hours after meals. Constipation Continue current diet. Patient encouraged to continue drinks fluids throughout the day. Patient will return in 10 months to discuss going for colonoscopy. Patient will call us sooner if she were have any GI concerning symptoms. Patient is agreeable to this plan and verbalizes understanding of instructions. She was given the opportunity to ask questions and all questions answered. ? Thank you for allowing me to participate in her care Plan Medications Discontinued cyclobenzaprine Discontinued Reason: Patient no longer taking 10 mg PO TID PRN 10 tabs 0RF muscle spasm omeprazole raulito un comprimido por la manana media hora antes del desayuno Discontinued Reason: Patient no longer taking 20 mg PO DAILY 90 caps 2RF K21.9 - Gastro-esophageal reflux disease without esophagitis TODAY'S VISIT Patient is here today for follow-up. Patient reports that she has been feeling well since the last time I have seen her. Patient denies any abdominal pain or discomfort. Denies melena, hematochezia, unintentional weight loss or ribbon like stools. Patient denies any dyspepsia, dysphagia or odynophagia. Patient reports that occasionally she will be constipated and takes Senokot on as needed basis. Patient denies any issues with anesthesia in the past. Will be due to go for colonoscopy this year. Last colonoscopy in 2020 showed tubular adenoma without high-grade dysplasia or carcinoma. Patient is not on any anticoagulation medication. Denies any cardiac or respiratory symptoms. No history of sleep apnea. [facility] Medical History Fibromyalgia Tubular adenoma Tubular adenoma Depression Pernicious anemia GERD (gastroesophageal reflux disease) Asthma Surgical History (Updated 06/09/23 @ 09:35 by PHOEBE Demarco) Hx of colonoscopy Hx of endoscopy Family History Father History of heart attack Hx of type 1 diabetes mellitus Mother No problems noted. Maternal Aunt Uterus cancer Social History Household Members: None Housing: Apartment Alcohol intake: current Alcohol intake frequency: holidays/special occasions only Alcohol type: wine Patient Tobacco Use Status: Former Tobacco user Current occupational status: disabled Sexual orientation: Straight/Heterosexual Gender identity: Female Female Reproductive History Menstrual Age of Menarche: 11 Review of Systems Const Denies weight gain and Denies weight loss ENT Reports no additional complaints, Denies dysphagia and Denies odynophagia Card Reports no additional complaints Resp Reports no additional complaints GI Denies abdominal pain, Denies belching, Denies melena, Denies bloating, Reports constipation (Occasional), Denies dysphagia, Denies excessive flatus, Denies dyspepsia, Denies heartburn, Denies diarrhea, Denies loose stools, Denies nausea, Denies odynophagia and Denies vomiting Reports no additional complaints Musc Reports no additional complaints Neuro Reports no additional complaints Psych Reports no additional complaints Endo Reports no additional complaints Physical Exam Vital Signs: Last Vital Signs Pulse 71 06/09/23 09:33 BP 129/68 06/09/23 09:33 BMI result Body Mass Index 28.9 Const General: healthy appearing and no acute distress Orientation/consciousness: patient oriented x3 Resp Effort & Inspection: normal respiratory effort, able to speak in complete sentences, no tracheal deviation and symmetric chest movement Auscultation: clear to auscultation bilaterally Cardio Rate: regular rate GI Inspection: Yes normal to inspection, No distended and Yes obesity Palpation (GI): Soft to palpation, not firm, nontender and No hepatosplenomegaly present Auscultation: normal bowel sounds General: Yes no CVA tenderness Back/Spine/Pelvis Back: no CVA tenderness Skin General skin exam: elasticity normal, turgor normal and dry skin Neuro General: patient oriented x3 Psych Appearance: grossly normal Mental Status: mental status grossly normal Assessment & Plan Assessment & Plan (1) Tubular adenoma: Code(s): D36.9 - Benign neoplasm, unspecified site (2) GERD (gastroesophageal reflux disease): Code(s): K21.9 - Gastro-esophageal reflux disease without esophagitis Qualifiers: Esophagitis presence: esophagitis presence not specified Qualified Code(s): K21.9 - Gastro-esophageal reflux disease without esophagitis (3) Constipation: Code(s): K59.00 - Constipation, unspecified Qualifiers: Constipation type: slow transit constipation Qualified Code(s): K59.01 - Slow transit constipation (4) Screen for colon cancer: Code(s): Z12.11 - Encounter for screening for malignant neoplasm of colon Plan Occasional acid reflux once or twice a week. Patient can try to avoid dietary triggers. Reports to be moving her bowels better with Senokot can continue. Increase fluid intake and activity to promote better bowel motility. Patient will be scheduled for colonoscopy, tubular adenoma without high-grade dysplasia or carcinoma 3 years ago. Patient denies any issues with anesthesia in the past. No history of sleep apnea. Not on any anticoagulation medication. No history of anxious diseases in the past or present. What to expect before during and after procedure discussed with patient. Stressed the importance of good bowel prep and clear liquid diet day before procedure. I will see her after the procedure, sooner on as needed basis. Patient is agreeable to this plan and verbalizes understanding of instructions. She was given the opportunity to ask questions and all questions answered. Thank you for allowing me to participate her care Medications: New polyethylene glycol 3350 (Miralax) As directed by gastroenterology department at [facility] 238 grams PO ONCE 238 grams 0RF Z12.11 - Encounter for screening for malignant neoplasm of colon sennosides (Natural Senna Laxative) 17.2 mg (2 x 8.6 mg) PO BEDTIME PRN 60 tabs 1RF constipation K59.00 - Constipation, unspecified bisacodyl (Dulcolax (bisacodyl)) take 4 tabs at noon the day before your colonoscopy 20 mg (4 x 5 mg) PO ONCE 1 day 4 tabs 0RF Z12.11 - Encounter for screening for malignant neoplasm of colon Coding Level of Care Code Est Pt Level 3 (99848) Diagnoses Tubular adenoma D36.9 Gastroesophageal reflux disease, unspecified whether esophagitis present K21.9 Esophagitis presence: esophagitis presence not specified Slow transit constipation K59.01 Constipation type: slow transit constipation Screen for colon cancer Z12.11 Time Spent (min) 30 Comment 20 minutes spent with patient and additional 10 minutes spent reviewing her records
[2023-06-09 09:33] VITALS: BP 129/68; PULSE 71; BMI 28.9
== END 2023-06-09 10:18 | disposition home or self-care (01) ==
PROVIDERS: PCP Internal Medicine; Visit Provider Nurse Practitioner Family
DX: D36.9 Benign neoplasm, unspecified site (principal); K21.9 Gastro-esophageal reflux disease without esophagitis; K59.01 Slow transit constipation; Z12.11 Encounter for screening for malignant neoplasm of colon
CPT/HCPCS: 99213

== ENCOUNTER → 2023-06-09 09:25 | Outpatient (BNVA) | payer MEDICAID, SELFPAY | PROVIDERS: PCP Internal Medicine; Visit Provider Nurse Practitioner Family | DX: Z12.11 Encounter for screening for malignant neoplasm of colon (principal); K21.9 Gastro-esophageal reflux disease without esophagitis; K59.01 Slow transit constipation; D36.9 Benign neoplasm, unspecified site | CPT/HCPCS: 99212 ==

== ENCOUNTER 2023-11-16 10:44 | Day surgery (SDC) | payer MEDICAID, SELFPAY ==
[2023-11-12 13:14] VITALS: BMI 28.9
--- NOTE | 2023-11-13 08:18 | HO.ANESPROP2 ---
Documented by User: Shelia Gomez NP 11/13/23 08:19 HPI - Anesthesia Eval Consult details Narrative: 53yo F for Colonoscopy PMFSH Active Problems Active Problems: All Active Problems Urinary retention with incomplete bladder emptying (Acute) Breast cancer screening (Acute) Cervical cancer screening (Acute) Pelvic pain (Acute) Tubular adenoma (Acute) Hx of endoscopy (Acute) Pernicious anemia (Acute) GERD (gastroesophageal reflux disease) (Acute) Depression (Acute) Asthma (Acute) Well woman exam with routine gynecological exam (Acute) Past Medical History Medical History Fibromyalgia Tubular adenoma Tubular adenoma Depression Pernicious anemia GERD (gastroesophageal reflux disease) Asthma Family History Family History Father History of heart attack Hx of type 1 diabetes mellitus Mother No problems noted. Maternal Aunt Uterus cancer Surgical History Surgical History (Updated 06/09/23 @ 09:35 by PHOEBE Demarco) Hx of colonoscopy Hx of endoscopy Social History Social History Household Members: None Housing: Apartment Are you a primary plant health care technician to a significant other at home: No Do you presently have visiting nurse or other home services: No Alcohol intake: current Alcohol intake frequency: holidays/special occasions only Alcohol type: wine Patient Tobacco Use Status: Former Tobacco user Use of substances other than those prescribed or required for medical reasons: Yes Substance Use Frequency: Socially Have you been hit, kicked, punched, or otherwise hurt by someone within the past year? If so, by whom?: No Are you DNR?: No Advance Directives: No Advance Directives Information Provided: Yes Recently lost weight without trying: No Nutrition Risks: No Nutritional Risk Current occupational status: disabled Sexual orientation: Straight/Heterosexual Gender identity: Female Meds Allergies Allergy/AdvReac Type Severity Reaction Status Date / Time aspirin [ASPIRIN] Allergy Unknown RASH Verified 06/09/23 09:32 Home Medications ?Medication ?Instructions ?Recorded ?Confirmed ?Last Taken ?Type duloxetine 30 mg capsule,delayed 30 mg PO DAILY 09/24/20 12/22/22 Unknown History release gabapentin 300 mg capsule 300 mg PO TID 01/25/21 12/22/22 Unknown History budesonide-formoterol HFA 80 2 puff inhalation BID 12/18/21 12/22/22 Unknown History mcg-4.5 mcg/actuation aerosol inhaler (Symbicort) levalbuterol tartrate 45 1 puff inhalation Q6H PRN wheezing 12/18/21 12/22/22 Unknown History mcg/actuation aerosol inhaler amlodipine 10 mg tablet 10 mg PO DAILY 08/12/22 12/22/22 Unknown History clonazepam 0.5 mg tablet 0.5 mg PO DAILY 12/22/22 12/22/22 Unknown History fluticasone propionate 110 1 puff inhalation BID 06/09/23 Unknown History mcg/actuation HFA aerosol inhaler fluticasone propionate 50 1 spray intranasal QAM 06/09/23 Unknown History mcg/actuation nasal spray,suspension Exam Height,Weight and Vital Signs: Height 5 ft 2 in Weight 71.668 kg Assessment and Plan Assessment Anesthesia Assessment: Chart Reviewed Documented by User: Carol Alcantara MD 11/16/23 12:32 [facility] Past Medical History Medical History Fibromyalgia Tubular adenoma Tubular adenoma Depression Pernicious anemia GERD (gastroesophageal reflux disease) Asthma Family History Family History Father History of heart attack Hx of type 1 diabetes mellitus Mother No problems noted. Maternal Aunt Uterus cancer Family history of problems with anesthesia: No Surgical History Surgical History (Updated 06/09/23 @ 09:35 by PHOEBE Demarco) Hx of colonoscopy Hx of endoscopy History of Problems with Anesthesia: No Social History Social History Household Members: None Housing: Apartment Are you a primary plant health care technician to a significant other at home: No Do you presently have visiting nurse or other home services: No Alcohol intake: current Alcohol intake frequency: holidays/special occasions only Alcohol type: wine Patient Tobacco Use Status: Former Tobacco user Use of substances other than those prescribed or required for medical reasons: Yes Substance Use Frequency: Socially Have you been hit, kicked, punched, or otherwise hurt by someone within the past year? If so, by whom?: No Are you DNR?: No Advance Directives: No Advance Directives Information Provided: Yes Recently lost weight without trying: No Nutrition Risks: No Nutritional Risk Current occupational status: disabled Sexual orientation: Straight/Heterosexual Gender identity: Female Meds Allergies Allergy/AdvReac Type Severity Reaction Status Date / Time aspirin [ASPIRIN] Allergy Unknown RASH Verified 06/09/23 09:32 Home Medications ?Medication ?Instructions ?Recorded ?Confirmed ?Last Taken ?Type duloxetine 30 mg capsule,delayed 30 mg PO DAILY 09/24/20 12/22/22 Unknown History release gabapentin 300 mg capsule 300 mg PO TID 01/25/21 12/22/22 Unknown History budesonide-formoterol HFA 80 2 puff inhalation BID 12/18/21 12/22/22 Unknown History mcg-4.5 mcg/actuation aerosol inhaler (Symbicort) levalbuterol tartrate 45 1 puff inhalation Q6H PRN wheezing 12/18/21 12/22/22 Unknown History mcg/actuation aerosol inhaler amlodipine 10 mg tablet 10 mg PO DAILY 08/12/22 12/22/22 Unknown History clonazepam 0.5 mg tablet 0.5 mg PO DAILY 12/22/22 12/22/22 Unknown History fluticasone propionate 110 1 puff inhalation BID 06/09/23 Unknown History mcg/actuation HFA aerosol inhaler fluticasone propionate 50 1 spray intranasal QAM 06/09/23 Unknown History mcg/actuation nasal spray,suspension Exam Airway Mallampati Class: II TM Dist: >3cm Neck ROM: Full Partial: Upper Heart: rrr Lungs: decreased BS at base Assessment and Plan Assessment Anesthesia Assessment: Anesthesia Plan Discussed Final Anesthetic Review Family History of Problems with Anesthesia: No History of Problems with Anesthesia: No NPO: Yes ASA Class: II Final Preanesthetic Review: No Changes in Pt Med Stat, Meds/Allgs Chart Reviewed and Consent Obtained/Reviewed Patient Risk: Low Procedure Risk: Intermediate Anesthetic Plan Anesthetic Plan: MAC: Disposition: Standard PACU
--- NOTE | 2023-11-16 11:00 | MHC.SHP ---
Pre-Procedural Eval Section A - 24 Hr Update-Section A only Date of Service: 11/16/23 The patient is an INPATIENT: No The patient has been examined within 24 hours of the surgical procedure. The History & Physical has been completed within 30 days and I have reviewed it.: No Section B - Complete if H&P > 30 days Chief Complaint: Surveillance for colon polyps Details of Present Illness: Colon cancer screening Relevant Family History (Specify if Yes): No Relevant Social History: None Present Medications: see Short Stay Collaborative assessment Medical History: Significant History (Asthma Depression GERD (gastroesophageal reflux disease) No known health problems Pernicious anemia) History of Previous Operations: Relevant previous surgery/procedure and date(s) (Hx of endoscopy) Allergies: Allergies Allergy/AdvReac Type Severity Reaction Status Date / Time aspirin [ASPIRIN] Allergy Unknown RASH Verified 06/09/23 09:32 Review of Systems Sugical H&P ROS: Negative: Constitution, Cardiovascular, Respiratory and Gastrointestinal Exam Surgical H&P Exam: Normal: Heart, Normal: Lungs, Normal: Extremities and Normal: Abdomen Plan Diagnosis/Plan: Unchanged I have reviewed the history and physical and performed a pertinent physical examination on my patient. No changes have occurred unless specified. Time Spent With Patient Time: Total time managing care of this patient today ____ minutes.
[2023-11-16 11:23] VITALS: BP 110/74; PULSE 83; RESP 16; TEMP 36.3; O2SAT 98; BMI 29.8
[2023-11-16] MEDS: Albuterol Sulfate (0.083%) 2.5 MG/3 ML VIAL.NEB INHALE (11:23)
[2023-11-16] MEDS: Lactated Ringers 1,000 ML 100 ML IVCONT (11:24)
[2023-11-16 11:25] VITALS: PULSE 77; RESP 24; O2SAT 96
[2023-11-16 13:30] VITALS: BP 115/45; PULSE 78; RESP 16; TEMP 36.1; O2SAT 98
--- NOTE | 2023-11-16 13:31 | P.OPN-COLO_ITS ---
Colonoscopy Operative Note Operative Note Date of Service: 11/16/23 Narrative: COLONOSCOPY TILL CECUM WITH SNARE POLYPECTOMY Pre-op diagnosis: Surveillance for colon polyps. Post-op diagnosis:? colon polyp, Diverticulosis, hemorrhoids Endoscopist:? Tommy Villarreal MD Anesthesia:?MAC Consent: Indications for the procedure and potential complications of bleeding, perforation, reaction to medications and missed diagnosis were discussed with the patient and informed consent was obtained. Instrument: Olympus PCF H 190 L variable stiffness pediatric colonoscope Monitoring: Vital signs and clinical assessment, intermittent blood pressure monitoring, continuous EKG monitoring, Pulse oximetry and Carbon Dioxide monitoring were done throughout the procedure. Please see anesthesia flowsheet. Colon withdrawl time was 23 minutes. Procedure: The patient was placed in the left lateral decubitis position and pre-procedure medications were administered. After a digital rectal examination of the ano-rectum, the video colonoscope was inserted into the rectum and advanced through the colon to the cecum. The colonoscope was slowly withdrawn in a retrograde panoramic fashion and the colon mucosa was carefully examined including a retroflexed view of the rectum. Findings and interventions are described below. Procedure Difficulty: without difficulty Findings: Terminal Ileum: Not evaluated Cecum: Normal Ascending Colon: Normal Transverse Colon: Normal Descending Colon: A 12 -15 mm sessile polyp at 55 cms - removed with a hot snare Sigmoid Colon: Moderate diverticulosis Rectum: Normal Ano-rectum: Moderate internal hemorrhoids Colon preparation: Good after copious irrigation. [place] Bowel Preparation Scale Right colon; 2 Transverse colon: 2 Left colon; 2 (0 = Unprepared colon segment with mucosa not seen due to solid stool that cannot be cleared. 1 = Portion of mucosa of the colon segment seen, but other areas of the colon segment not well seen due to staining, residual stool and/or opaque liquid. 2 = Minor amount of residual staining, small fragments of stool and/or opaque liquid, but mucosa of colon segment seen well. 3 = Entire mucosa of colon segment seen well with no residual staining, small fragments of stool or opaque liquid) Impression and Post Procedure Diagnosis: Colonoscopy Findings: One medium sized polyp was removed Moderate diverticulosis seen in the sigmoid colon Moderate hemorrhoids on retroflexed exam. Plan: I will send a letter with biopsy results. Repeat Colonoscopy in 3-5 years if polyps are adenomatous and due to a history of adenomatous colon polyps. . Above findings were reviewed with the patient and relevant handouts were given and the discharge area.
[2023-11-16 13:44] VITALS: BP 127/71; PULSE 71; RESP 16; TEMP 36.2; O2SAT 99
== END 2023-11-16 14:13 | disposition home or self-care (01) ==
PROVIDERS: PCP Internal Medicine; Visit Provider Internal Medicine Gastroenterology
PROC: 0DJD8ZZ Inspection of Lower Intestinal Tract, Via Natural or Artificial Opening Endoscopic (ICD-10-PCS; CPT 45378; principal; 2023-11-16 12:50)
DX: Z12.11 Encounter for screening for malignant neoplasm of colon (principal); Z86.010 Personal history of colon polyps; D12.4 Benign neoplasm of descending colon; K57.30 Diverticulosis of large intestine without perforation or abscess without bleeding; K64.8 Other hemorrhoids; K59.01 Slow transit constipation; K21.9 Gastro-esophageal reflux disease without esophagitis; J45.909 Unspecified asthma, uncomplicated; D51.0 Vitamin B12 deficiency anemia due to intrinsic factor deficiency; M79.7 Fibromyalgia; F32.A Depression, unspecified; Z79.51 Long term (current) use of inhaled steroids; Z79.899 Other long term (current) drug therapy; Z88.6 Allergy status to analgesic agent; Z87.891 Personal history of nicotine dependence
CPT/HCPCS: 45385; 88305; 94640; J2704

== ENCOUNTER → 2023-11-16 10:44 | Outpatient (BNV) | payer MEDICAID, SELFPAY | PROVIDERS: PCP Internal Medicine; Visit Provider Internal Medicine Gastroenterology | DX: Z12.11 Encounter for screening for malignant neoplasm of colon (principal); Z86.010 Personal history of colon polyps; D12.4 Benign neoplasm of descending colon; K57.30 Diverticulosis of large intestine without perforation or abscess without bleeding | CPT/HCPCS: 45385 ==

== ENCOUNTER 2024-01-19 12:46 | Outpatient (REF) | payer MEDICAID, SELFPAY ==
--- NOTE | ~2024-01-19 | MM_ITS ---
EXAMINATION: MM DIAGNOSTIC DIGITAL BREAST TOMOSYNTHESIS, BILATERAL CLINICAL INFORMATION: Final six-month follow-up (for 2 year stability) left breast calcifications, lower inner quadrant, middle one third. Patient also due for yearly. COMPARISON: Mammography: 01/13/2023, 07/15/2022, 01/15/2022, 01/03/2022 (BI-RADS 0), 12/31/2020, 12/29/2019. Dating back to 2017. TECHNIQUE: Digital breast tomosynthesis is performed in both the craniocaudal and mediolateral oblique views along with computer-aided detection (CAD). Synthesized 2D images are generated from the tomosynthesis. In addition, 2-D spot magnification left CC and LM views were also obtained. FINDINGS: The breasts are extremely dense, which lowers the sensitivity of mammography (ACR BI-RADS breast composition Category d). Diagnostic views demonstrate loosely grouped, coarse, benign appearing calcifications in the lower inner quadrant left breast, middle one third, without aggressive changes. These are benign and have been stable over a two-year period. There are stable oval masses in both breasts, some demonstrating coarse calcification suggestive of degenerating fibroadenomas. These are unchanged from multiple prior exams and benign. Otherwise, There are no suspicious masses, suspicious grouped calcifications, or areas of architectural distortion in either breast. The parenchymal pattern is stable from prior exams. There is no skin or axillary abnormality. MM/MM tomosynthesis diagnostic BI IMPRESSION: 1. There are no findings suspicious for malignancy in either breast. There are benign findings unchanged. 2. There are benign calcifications in the lower inner left breast middle one third, stable over 2 years. No further follow-up recommended. 3. Recommend the patient resume routine annual screening mammography. ASSESSMENT: BI-RADS BI-RADS 2 - Benign Findings RECOMMENDATION: 1 year F/U Results were provided to the patient at time of visit by the technologist. This patient's information was entered into a reminder system with a target due date for their next mammogram. Electronically signed by: Charan Gamez MD 01/19/2024 01:47 PM [facility]
== END 2024-01-19 12:47 | disposition home or self-care (01) ==
LOC: HO.MAMMO 12:46
PROVIDERS: PCP Internal Medicine; Visit Provider Internal Medicine
DX: R92.1 Mammographic calcification found on diagnostic imaging of breast (principal)
CPT/HCPCS: 77062; 77066

== ENCOUNTER → 2024-01-19 13:00 | Outpatient (BNV) | payer MEDICAID, SELFPAY | PROVIDERS: PCP Internal Medicine; Visit Provider Radiology Diagnostic Radiology | DX: R92.1 Mammographic calcification found on diagnostic imaging of breast (principal); R92.343 Mammographic extreme density, bilateral breasts | CPT/HCPCS: 77062; 77066 ==

== ENCOUNTER → 2024-02-18 10:22 | Outpatient (BNVA) | payer MEDICAID, SELFPAY | PROVIDERS: PCP Internal Medicine; Visit Provider Advanced Practice Midwife | DX: Z01.419 Encounter for gynecological examination (general) (routine) without abnormal findings (principal); R33.9 Retention of urine, unspecified; Z12.39 Encounter for other screening for malignant neoplasm of breast | CPT/HCPCS: 99396; 99459 ==

== ENCOUNTER 2024-02-18 10:30 | Outpatient (AMB) | payer MEDICAID, SELFPAY ==
--- NOTE | 2024-02-18 10:38 | A.OFFVIS_ITS ---
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: [employer] Present Information Interpreted: clinical only Caustic Operator: Caustic Operator Present Allergies aspirin [ASPIRIN] Allergy (Unknown, Verified 02/18/24 10:41) RASH Medication List - Last Reconciled 02/18/24 by Ana Paula Hernandez CNM acetaminophen-codeine 300-30 mg 1 tab PO Q8H PRN amlodipine 10 mg PO DAILY budesonide-formoterol 80-4.5 mcg/actuation (Symbicort) 2 puffs inhalation BID clonazepam 0.5 mg PO DAILY duloxetine 30 mg PO DAILY fluticasone propionate 50 mcg/actuation 1 spray intranasal QAM fluticasone propionate 110 mcg/actuation 1 puff inhalation BID gabapentin 300 mg PO TID levalbuterol tartrate 45 mcg/actuation 1 puff inhalation Q6H PRN sennosides (Natural Senna Laxative) 17.2 mg (2 x 8.6 mg) PO BEDTIME PRN Post menopausal: Yes (2021) HPI HPI 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 She says she is feeling well and doing well she has asthma and depression fibromyalgia issues with her nurse and is on disability but she feels she is doing well she has a therapist and an psychiatrist and she sees her primary care provider. She wears a mask prophylactically to prevent catching upper respiratory infections that would aggravate her asthma. She is not sexually active and has not been for about 15 years so she is not worried about any infections and she does not have any symptoms of anything. She is now getting mammograms every year she gets them ordered by her primary care provider she had a colonoscopy in October and it again found a polyp but it was negative for atypia. She says she tries to stay active for her fibromyalgia. She lives alone but has family She says the stress incontinence is about the same, only when she coughs. [facility] Medical History Fibromyalgia Tubular adenoma Tubular adenoma Depression Pernicious anemia GERD (gastroesophageal reflux disease) Asthma Surgical History Hx of colonoscopy Hx of endoscopy Family History Father History of heart attack Hx of type 1 diabetes mellitus Mother No problems noted. Maternal Aunt Uterus cancer Social History Household Members: None Housing: Apartment Are you a primary transitional care liaison to a significant other at home: No Do you presently have visiting nurse or other home services: No Alcohol intake: current Alcohol intake frequency: holidays/special occasions only Alcohol type: wine Patient Tobacco Use Status: Former Tobacco user Current occupational status: disabled Sexual orientation: Straight/Heterosexual Gender identity: Female Female Reproductive History Menstrual Age of Menarche: 11 Duration of menses: <3 days control method: none Total pregnancies: 3 Full term: 3 Date of last pap smear: 12/18/21 (negative,2020 WNL) Date of Mammogram: 01/19/24 (2Bening finding) Physical Exam Vital Signs: Last Vital Signs BP 118/72 02/18/24 10:41 BMI result Body Mass Index 30.0 Const General: healthy appearing, comfortable, no acute distress, well developed and alert Nutritional Appearance: average body habitus Orientation/consciousness: patient oriented x3 Limitations: no limitations HEENT Head: Yes normocephalic Neck Neck: Yes normal visual inspection Chest Chest palpation & inspection: normal inspection of the chest Breast/axilla inspection: normal inspection of the breasts and normal inspection of the axillae Breast/axilla palpation: normal palpation of the breasts and normal palpation of the axillae Resp Effort & Inspection: normal respiratory effort GI Inspection: Yes normal to inspection, No Abdominal wall edema and No distended Palpation (GI): Soft to palpation and nontender Other: Vagina is moist atrophic changes noted but no vaginal dryness appreciated cervix multiparous pink smooth healthy appearing no abnormal discharge whatsoever uterus small anteverted mobile nontender adnexa nontender not enlarged extremely good tone with Kegel. General: Yes bladder normal to palpation External Female Exam: normal external appearance and normal appearance of the urethra Speculum Exam - Vagina: normal appearance of the vagina, normal palpation and normal vaginal discharge Speculum Exam - Cervix: normal appearance of the cervix, normal palpation and nontender Bimanual exam- vagina & uterus: normal bimanual exam, normal palpation, uterine size normal, bladder normal to palpation, consistency normal, normal palpation, uterine mobility normal, uterine shape normal, No Cervical tenderness present, non-tender and no cervical motion tenderness Bimanual Exam- Adnexa, other: normal adnexae, no masses, normal and No adnexal tenderness Neuro General: patient oriented x3 Results Reviewed Results Reviewed: Name: Ellen Giang Age/Sex: 51/F Attending: Ana Paula Hernandez CNM : 1970 Submitted by: Ana Paula Hernandez CNM Copies to: MR #: [id number] Status: DEP REF Collected: 12/18/21 Location: [facility] Received: 12/18/21 Interpretation Satisfactory for evaluation. Moderate inflammation. Negative for intraepithelial lesion or malignancy. HPV mRNA E6/E7: NOT DETECTED This assay detects E6/E7 viral messenger RNA (mRNA) from 14 high-risk HPV types (16, 18, 31, 33, 35, 39, 45, 51, 52, 56, 58, 59, 66, 68) HPV testing performed by [facility], [place], [place]. See reference lab oratory pion of the EMR for entire report. Clinical Information LMP: Unknown Previous PAP test: 02/01/20, WNL Material Received ThinPrep-Cervical Electronically Signed By: LEANDRO Mcdermott (ASCP) 01/02/22 0843 The Pap Test is a screening procedure with the inherent possibility of both false negative and false positive results. Results should be interpreted in the context of historic and current clinical findings. Reliability of the Pap Test is enhanced by performing the test on a regular repetitive basis. Patient: Ellen Giang Age/Sex: 51/F MR#: [id number] Page 1 of 1 Assessment & Plan Assessment & Plan (1) Well woman exam with routine gynecological exam: Code(s): Z01.419 - Encounter for gynecological examination (general) (routine) without abnormal findings Category: Medical (2) Cervical cancer screening: Comment: 02/01/20 pap sat/nilm/HPV neg.//12/18/21 pap= neg w neg HPV. Code(s): Z12.4 - Encounter for screening for malignant neoplasm of cervix Category: Medical (3) Breast cancer screening: Code(s): Z12.39 - Encounter for other screening for malignant neoplasm of breast Category: Medical (4) Urinary retention with incomplete bladder emptying: Comment: See note declines PT referral discussed consciously trying to empty bladder at each void and not holding the urine for a long time. Code(s): R33.9 - Retention of urine, unspecified Category: Medical Plan -----Discussed in this visit the following: healthy balanced diet, regular and consistent exercise, getting recommended health screens, doing the best she can for her particular health concerns, kegel exercises, pap smear screening and followup recommendations, mammography screening and SBE, normal changes in cycles in her life stage--- . She is up-to-date on her colon screening and her mammogram screening and is currently on an every year screening plan. Her last Pap smear was negative in 2021 so she is not due for Pap smear this year reviewed that she would have her next Pap in 5 years from her last 1. Reviewed postmenopausal changes reviewed excellent efforts at self-care. She feels like she is doing well care at this point there was no need for her any testing today. She is following up with her other providers. RTC 1 year. She has excellent tone with her Kegel. She is not really having major issue incontinence at this point but said it with the about the same reminded to not hold her urine for long periods of time, and to void regularly Coding Level of Care Code Est Pt Prev Care 40-64y(72266) Diagnoses Well woman exam with routine gynecological exam Z01.419 Cervical cancer screening Z12.4 Breast cancer screening Z12.39 Urinary retention with incomplete bladder emptying R33.9
[2024-02-18 10:41] VITALS: BP 118/72
== END 2024-02-18 11:22 | disposition home or self-care (01) ==
PROVIDERS: PCP Internal Medicine; Visit Provider Advanced Practice Midwife
DX: Z01.419 Encounter for gynecological examination (general) (routine) without abnormal findings (principal); R33.9 Retention of urine, unspecified
CPT/HCPCS: 99396

== ENCOUNTER 2024-07-08 14:27 | Outpatient (REF) | payer MEDICAID, SELFPAY ==
--- NOTE | ~2024-07-08 | XR_ITS ---
EXAMINATION: XR KNEE, LEFT CLINICAL INFORMATION: pain COMPARISON: None available. TECHNIQUE: Four views of the left knee. FINDINGS: No fracture, dislocation, or suspicious bone lesion. Normal alignment. Mild tricompartmental osteoarthrosis present. There is spurring of the tibial spines. There is no evidence of joint effusion. There are normal soft tissues. XR/XR knee LT 4V IMPRESSION: 1. No acute bony abnormalities. 2. Mild tricompartmental osteoarthrosis. Electronically signed by: Charan Gamez MD 07/08/2024 03:15 PM EDT
--- OUTSIDE RECORDS SUMMARY | 2024-07-08 14:30 | XMS_ITS | Encounter Summary ---
Author Organization [employer] Address [address] [place] [address] Care Team Providers Care Band Instrument Maker Name Role Phone Ellen Humphrey MD Primary Care Provide r Encounter Details Date Type Department Care Team (Latest Contact Info) Description 07/08/2024 Travel Social History Tobacco Use Types Packs/Day Years Used Date Smoking Tobacco: Never Passive Smoke Exposure: Never Smokeless Tobacco: Never Alcohol Use Standard Drinks/Week Comments Defer 0 (1 standard drink = 0.6 oz pur e alcohol) Depression Answer Date Recorded Patient Health Questionnaire-9 Score 17 07/08/2024 Patient Health Questionnaire-9 Score 17 07/08/2024 Last PHQ-9: Questionnaire Data Not on file 0 07/08/2024 Housing Stability Answer Date Recorded What is your housing situation today? I have caden meade 12/10/[address] you li ve. Do you have problems with any of the following? None of the above 12/10/2022 Food Insecurity Answer Date Recorded Within the past 12 months, y ou worried that your food would run out before you got money to buy more: Never True 12/10/2022 Within the past 12 months,th e food you bought just didn't last and you didn't have enough money to get more: Never True Transportation Answer Date Recorded In the past 12 months, has l ack of transportation kept you from medical appts, meetings, work or from getting things needed for daily living? No 12/10/2022 Utilities Answer Date Recorded In the past 12 months, has t he electric, gas, oil or water company threatened to shut off services in your home? No 12/10/2022 Depression Answer Date Recorded Patient Health Questionnaire-2 Score 6 07/08/2024 Internet Access Answer Date Recorded Internet Access Q1 No 04/18/2024 Internet Access Q2 I do not want or need it 03/27 Comments No Sex and Gender Information Value Date Recorded Sex Assigned at Female 12/23/2021 10:14 AM EDT Legal Sex Female 10:14 AM EDT Gender Identity Female 12/23/2021 10:14 AM EDT Sexual Orientation Straight 12/23/2021 10 :14 AM EDT documented as of this encounter Functional Status * Over the past 2 weeks, how often have you been bothered by any of the following problems? Question Answer Date of Assessment Author Patient Health Questionnaire -2 Score 6 07/08/2024 1:52 PM EDT Panda Germain MA * Little interest or pleasure in doing things Answer Date of Assessment Author Nearly every day 07/08/2024 1:52 PM EDT Panda Germain MA * Feeling down, depressed, or hopeless Answer Date of Assessment Author Nearly every day 07/08/2024 1:52 PM EDT Panda Germain MA * Trouble falling or staying asleep, or sleeping too much Answer Date of Assessment Author Not at all 07/08/2024 1:52 PM EDT Anushka Germain MA * Feeling tired or having little energy Answer Date of Assessment Author Nearly every day 07/08/2024 1:52 PM MICHELLET Panda Germain MA * Poor appetite or overeating Answer Date of Assessment Author Nearly every day 07/08/2024 1:52 PM EDT Panda Germain MA * Feeling bad about yourself - or that you are a failure or have let yourself or your family down Answer Date of Assessment Author Nearly every day 07/08/2024 1:52 PM MICHELLET Panda Germain MA * Trouble concentrating on things, such as reading the newspaper or watching television Answer Date of Assessment Author More than half the days 07/08/2024 1:52 PM MICHELLET Panda Germain MA * Moving or speaking so slowly that other people could have noticed? Or the opposite - being so fidgety or restless that you have been moving around a lot more than usual. Answer Date of Assessment Author Not at all 07/08/2024 1:52 PM EDT Anushka Germain MA * Thoughts that you would be better off or hurting yourself in some way Answer Date of Assessment Author Not at all 07/08/2024 1:52 PM EDT Anushka Germain MA * Patient Health Questionnaire-9 Score Answer Date of Assessment Author 17 07/08/2024 1:52 PM EDT Anushka Germain MA * How difficult have these problems made it for you to do your work, take care of things at home, or get along with other people? Answer Date of Assessment Author Very difficult 07/08/2024 1:52 PM EDT Anushka Germain MA documented as of this encounter Plan of Treatment Upcoming Encounters Date Type Department Care Team (Late st Contact Info) Description 07/21/2024 10:30 AM EDT Office Visit [facility] [address] [place] [address] Sonu Franco DDS [address] [place] [address] 10/03/2024 1:00 PM EDT Office Visit [facility] [address] [place] [address] Sayda Myers [address] [place] [address] documented as of this encounter Visit Diagnoses Not on filedocumented in this encounter Additional Health Concerns Assessment Noted Time PHQ-9 Depression Total Score: 025 1:52 PM EDT documented as of this encounter Care Teams Band Instrument Maker Relationship Specialty Start Date End Date Ellen Humphrey MD [address] [place] [address] PCP - General Family Medicine 11/04/17 documented as of this encounter
--- OUTSIDE RECORDS SUMMARY | 2024-07-08 14:30 | XMS_ITS | Encounter Summary ---
Author Organization [employer] Address [address] [place] [address] Care Team Providers Care Candy Dipper Name Role Phone Ellen Humphrey MD Primary Care Provide r Encounter Details Date Type Department Care Team (Latest Contact Info) Description 11/18/2019 Abstract [facility] Dental, Provider, DDS Social History Tobacco Use Types Packs/Day Years Used Date Smoking Tobacco: Never Assessed Comments Unknown Sex and Gender Information Value Date Recorded Sex Assigned at Female 12/23/2021 10:14 AM EDT Legal Sex Female 10:14 AM EDT Gender Identity Female 12/23/2021 10:14 AM EDT Sexual Orientation Straight 12/23/2021 10 :14 AM EDT documented as of this encounter Plan of Treatment Upcoming Encounters Date Type Department Care Team (Late st Contact Info) Description 07/21/2024 10:30 AM EDT Office Visit [facility] [address] [place] [address] Sonu Franco DDS [address] [place] [address] 10/03/2024 1:00 PM EDT Office Visit [facility] [address] [place] [address] Sayda Myers [address] [place] [address] documented as of this encounter Visit Diagnoses Not on filedocumented in this encounter Care Teams Candy Dipper Relationship Specialty Start Date End Date Ellen Humphrey MD [address] [place] [address] PCP - General Family Medicine 11/04/17 documented as of this encounter
--- OUTSIDE RECORDS SUMMARY | 2024-07-08 14:30 | XMS_ITS | Clinical Summary ---
Author Organization [employer] Address [address] [facility] [address] [place] [address] Care Team Providers Care Silk Screen Cutter Name Role Phone Ellen Humphrey MD Primary Care Provide r Allergies Active Allergy Reactions Criticality Noted Date Comments Aspirin Rash Low 05/24/2010 Medications fluticasone (Flonase) 50 MCG/ACT nasal sprayIndications :Seasonal allergies INSTILL 2 SPRAYS IN EACH NOSTRIL ONCE DAILY 48 g 1 03/18/19 23 Active DULoxetine (Cymbalta) [address] capsule Take 30 mg by mouth in the morning. 08/14/19 23 Active clonazePAM (KlonoPIN) 0.5 MG tablet TAKE 1 TABLET BY MOUTH ONCE DAILY NEEDED 08/14/19 23 Active levalbuterol (Xopenex) 45 MCG/ACT inhaler INHALE 1 PUFF EVERY 6 HOURS NEEDED FOR WHEEZING 08/06/19 23 Active montelukast (Singulair) 10 MG tablet TAKE 1 TABLET BY MOUTH EVERY DAY IN THE EVENING 90 tablet 1 12/28/19 24 Active cetirizine (ZyrTEC) 10 MG tablet TAKE 1 TABLET BY MOUTH EVERY DAY 90 tablet 1 02/02/20 24 Active triamcinolone (Kenalog) 0.1 % creamIndications :Rash Apply topically if needed in the morning and at bedtime (pain and swelling). 30 g 04/18/19 25 Active albuterol (2.5 MG/3ML) 0.083% nebulizer solutionIndicati ons:Moderate persistent asthma, unspecified whether complicated INHALE 1 AMPULE USING A NEBULIZER EVERY 4 HOURS NEEDED FOR WHEEZING 90 mL 3 05/20/19 25 Active acetaminophen (Tylenol 8 Hour) 650 MG ER tabletIndication s:Dental abscess,Symptoma tic apical periodontitis Take 1 tablet (650 mg) by mouth every 8 (eight) hours if needed for mild pain. Do not crush, chew, or split. 30 tablet 06/10/19 25 Active chlorhexidine (Peridex) 0.12 % solutionIndicati ons:Dental abscess,Symptoma tic apical periodontitis Swish 15 mL morning and night for 1 minute. Spit, do not swallow. Do not eat or drink for 30 minutes following use. 473 mL 06/10/19 25 Active gabapentin (Neurontin) 300 MG capsule TAKE 1 CAPSULE BY MOUTH THREE TIMES DAILY 90 capsule 3 06/15/19 25 Active olmesartan (Benicar) 20 MG tabletIndication s:Primary hypertension Take 1 tablet (20 mg) by mouth Once per day. 90 tablet 07/09/19 25 026 Active gabapentin (Neurontin) 300 MG capsule TAKE 1 CAPSULE BY MOUTH THREE TIMES DAILY 90 capsule 3 12/02/19 24 025 Discontinued olmesartan (Benicar) 20 MG tabletIndication s:Primary hypertension Take 1 tablet (20 mg) by mouth Once per day. 90 tablet 04/18/19 25 025 Discontinued(R eorder (will not trigger notification to Pharmacy)) amoxicillin (Amoxil) 500 MG capsuleIndicatio ns:Dental abscess,Symptoma tic apical periodontitis Take 1 capsule (500 mg) by mouth every 8 (eight) hours for 7 days. 21 capsule 06/10/19 25 025 Active Problems Problem Noted Date Diagnosed Date Chronic pain of left knee 07/08/2024 Assessment & Plan (07/08/2024 2:23 PM EDT): X-ray ordered today patient will be contacted with results and plan Dental abscess 06/09/2024 Symptomatic apical periodontitis 06/09/2024 Rash 04/18/2024 Acute gingival inflammation 12/31/2023 Colon cancer screening 12/02/2023 Assessment & Plan (12/02/2023 2:04 PM EDT): Patient just had her colonoscopy next one will be in 3 or 5 years depending on pathology results Localized gingivitis 08/24/2023 Partial edentulism 06/24/2023 Chronic fatigue 05/01/2023 Bilateral foot pain 05/01/2023 Primary hypertension 05/01/2023 Assessment & Plan (07/08/2024 2:22 PM EDT): I advised: - Aerobic exercise to reduce BP. Initial goal of 30 min walk 3-5x/week. Increase as tolerated. - low-sodium diet (goal: <2g/day) and heart healthy diet such as DASH to reduce BP and prevent ASCVD. - Home BP monitoring 1-2 x day with goal of <140/90. - Seek immediate medical attention for chest pain, palpitations, SOB, syncope, or sudden changes in mental status. - Do not change or discontinue current prescriptions without first consulting health care provider Assessment & Plan (04/18/2024 12:26 PM EST): Advised patient low-sodium diet and weight reduction I discontinue amlodipine 10 mg and instead put her on olmesartan 20 mg daily, plan is to bring her back in 2 weeks for nurse visit for blood pressure check if blood pressure is not at goal plan is to increase her the dose to 40 mg Assessment & Plan (12/02/2023 2:03 PM EDT): Maintenance: BMP: up to date Lipid Panel: up to date ASCVD Risk: 1.1% - Aerobic exercise to reduce BP. Initial goal of 30 min walk 3-5x/week. Increase as tolerated. - low-sodium diet (goal: <2g/day) and heart healthy diet such as DASH to reduce BP and prevent ASCVD. - Home BP monitoring 1-2 x day with goal of <140/90. - Seek immediate medical attention for chest pain, palpitations, SOB, syncope, or sudden changes in mental status. - Do not change or discontinue current prescriptions without first consulting health care provider Assessment & Plan (09/03/2023 1:53 PM EDT): - Aerobic exercise to reduce BP. Initial goal of 30 min walk 3-5x/week. Increase as tolerated. - low-sodium diet (goal: <2g/day) and heart healthy diet such as DASH to reduce BP and prevent ASCVD. - Home BP monitoring 1-2 x day with goal of <140/90. - Seek immediate medical attention for chest pain, palpitations, SOB, syncope, or sudden changes in mental status. - Do not change or discontinue current prescriptions without first consulting health care provider Assessment & Plan (05/01/2023 10:04 AM EST): Maintenance: BMP: ordered today Lipid Panel: ordered today ASCVD Risk: Calculate pending updated labs - Aerobic exercise to reduce BP. Initial goal of 30 min walk 3-5x/week. Increase as tolerated. - low-sodium diet (goal: <2g/day) and heart healthy diet such as DASH to reduce BP and prevent ASCVD. - Home BP monitoring 1-2 x day with goal of <140/90. - Seek immediate medical attention for chest pain, palpitations, SOB, syncope, or sudden changes in mental status. - Do not change or discontinue current prescriptions without first consulting health care provider Dental caries 04/02/2023 Gingival bleeding 03/27/2023 TMJ (temporomandibular joint disorder) Assessment & Plan (03/08/2023 9:44 AM EST): left TMJ dysfunction -tylenol prn and has Advil at home can take prn, muscle relaxants HS-for few days -prior bedtime-explained to avoid ETOH,and to not drive or use heavy machinery after taking medication -explained mandibular exercises -if no improvement will need PT and images -pt should f w PCP In next 6 to 8 weeks Low back pain radiating to right lower extremity 02/09/2023 Encounter for screening mamm ogram for malignant neoplasm of breast 09/30/2022 Periodontal disease 09/18/2022 Dental calculus 09/18/2022 Seasonal allergies 07/11/2022 Hypersomnia 07/11/2022 Assessment & Plan (10/01/2022 2:22 PM EDT): Sleep studies will be ordered again Snoring 07/11/2022 Pain in female pelvis 07/10/2022 Fibromyalgia 07/10/2022 Chronic left shoulder pain 04/16/2022 Moderate persistent asthma with acute exacerbati on 04/16/2022 Assessment & Plan (07/08/2024 2:23 PM EDT): Fairly controlled continue to follow-up with pulmonology Assessment & Plan (12/02/2023 2:02 PM EDT): Patient is stable continue to follow with pulmonology and c/w same medication (inhalers) regiment Patient today educated to avoid asthma triggers Assessment & Plan (09/03/2023 1:53 PM EDT): Patient educated to avoid asthma triggers Continue to follow with pulmonology I will prescribed today a nebulizer and albuterol solution, Its my medical opinion patient will benefit form nebulizer avoiding emergency visits Assessment & Plan (05/01/2023 10:03 AM EST): Continue to follow up with pulmonology Assessment & Plan (02/09/2023 11:57 AM EST): Patient educated about asthma triggers C/w levalbuterol PRN Assessment & Plan (10/01/2022 2:21 PM EDT): Patient educated to avoid triggers Continue with same medications regimen Easy bruising 10/22/2017 Benzodiazepine dependence, continuous 12/22/2016 Chronic cough 12/22/2016 Mood disorder 12/22/2016 Assessment & Plan (07/08/2024 2:22 PM EDT): Continue to follow-up with psychiatrist and therapist Assessment & Plan (09/30/2022 2:33 PM EDT): Patient continues to follow with therapist and psychiatrist Pernicious anemia 09/04/2014 Cobalamin deficiency 05/06/2012 Gastroesophageal reflux disease 05/06/2012 Migraine 05/06/2012 Encounters Date Type Department Care Team Description 07/08/2024 1:45 PM EDT Office Visit [facility] [address] [place] [phone] Ellen Humphrey MD Primary hypertension; Moderate persistent asthma with acute exacerbation; Mood disorder (CMS/HCC); Chronic pain of left knee 07/08/2024 Travel 07/07/2024 Telephone [facility] [address] [place] [phone] Ellen Humphrey MD chart prep 06/30/2024 Patient Outreach [address] [address] Ellen Humphrey MD Pre-visit Planning (SDSD screening completed on 04/18/2024) 06/11/2024 Refill [facility] [address] [place] [phone] Ellen Humphrey MD 06/09/2024 9:00 AM EDT Office Visit [facility] [address] [place] [phone] Sonu Franco DDS Dental abscess (Primary Dx); Symptomatic apical periodontitis 05/19/2024 Refill [facility] [address] [place] [phone] Ellen Humphrey MD Moderate persistent asthma, unspecified whether complicated 05/06/2024 Population Health Risk Score [facility] () Department [address] [place] [phone] Provider, Population Health Generic 05/03/2024 1:00 PM EDT Clinical Support [address] [address] Tiffanie Gomez RN Primary hypertension 05/03/2024 Travel 04/18/2024 11:00 AM EST Office Visit [address] [phone] Ellen Humphrey MD Primary hypertension (Primary Dx); Rash 04/18/2024 Travel 04/13/[address] [phone] Ellen Humphrey MD Chart Prep from Last 3 Months Immunizations Immunization Administration Dates Next Due Hep B, adult 05/14/2010,10/16/2009,09/11/2009 Influenza Injectable Quadriv alant Preservative Free IIV4 MDCK 06/21/2021 Influenza injectable quadriv alent IIV4 with preservative 11/20/2017,11/16/2015 Influenza injectable quadriv alent preservative free 02/09/2023,01/21/2022,01/04/2020,12/17,12/22/2016,11/23/2014 Influenza, IIV3, injectable 11/22/2013, 1 Influenza, Split (incl. jaya fied surface antigen) 11/10/2012,01/26/2012 Influenza, seasonal, injecta ble, preservative free 12/02/2023 Pfizer Covid-19 Vaccine 12+ 12/02/2023 Pneumococcal Conjugate PCV 20 09/02/2023 Pneumococcal Polysaccharide PPSV23 10/02/2005 TD (adult), 2 Lf tetanus tox oid, preservative free, adsorbed 06/23/2008,11/30/1995 Tdap 11/10/2012 Zoster, Recombinant 08/23/2021,06/21/2021 Social History Tobacco Use Types Packs/Day Years Used Date Smoking Tobacco: Never Passive Smoke Exposure: Never Smokeless Tobacco: Never Tobacco Cessation:Counseling Given: Not Answered Alcohol Use Standard Drinks/Week Comments Defer 0 [...] t he electric, gas, oil or water [employer] threatened to shut off services in your [...] Orientation Straight 12/23/2021 10 :14 AM EDT Last Filed Vital Signs Vital Sign Reading Time Taken Comments Blood Pressure 135/84 07/08/2024 1:50 PM EDT Pulse 104 07/08/2024 1:50 PM EDT Temperature 35 ??C (95 ??F) 07/08/2024 1:50 PM EDT Respiratory Rate 20 07/08/2024 1:50 PM EDT Oxygen Saturation 100% 12/02/2023 10:05 AM EDT Inhaled Oxygen Concentration - - Weight 75 kg (165 lb 6.4 oz) 07/08/2024 1:50 PM EDT Height 172.7 cm (5' 8 ) 07/08/2024 1:50 PM EDT Body Mass Index 25.15 07/08/2024 1:50 PM EDT Plan of Treatment Upcoming Encounters Date Type Department Care Team (Late st Contact Info) Description 07/21/2024 10:30 AM EDT Office Visit [facility] [address] [place] [address] Sonu Franco DDS [address] [place] [address] 10/03/2024 1:00 PM EDT Office Visit [facility] [address] [place] [address] Sayda Myers [address] [place] [address] Health Maintenance Due Date Last Done Comments CT Colonography 1969 FIT DNA/Cologuard 1969 FIT 1969 FOBT 1970 HIV Screening 1970 Sigmoidoscopy 1969 Hepatitis C Screening 1987 Pap Smear 1990 DTaP/Tdap/Td Vaccines (2 - Td or Tdap) 11/10/2022 11/10/2012, 06/23/2008, 11/30/1995 Colonoscopy 07/28/2023 07/27/2020 Colorectal Cancer Screening 07/28/2023 Dental Prophylaxis 10/03/2024 04/04/2024, 1 03/01/2023, 03/27/2023, Additional history exists Dental Oral Exam 12/10/2024 06/09/2024, 08/2023, 03/27/2023, Additional history exists Dental X-Ray: Bitewings 12/31/2024 12/31/19, 09/18/2022, 05/13/2021, Additional history exists Mammogram 01/18/2025 01/19/2024, 12/25, 12/06/2018, Additional history exists Alcohol/Substance Use Screening 04/18/2025 04/18/2024 SDOH Screening 04/18/2025 04/18/2024 Depression Screening 07/08/2025 07/08/2024, 07/09/19 Tobacco Screening 07/08/2025 07/08/2024 Cervical Cancer Screening 12/18/2026 HPV/Cotest 12/18/2026 12/18/2021, 11/24, 01/31/2020, Additional history exists Dental X-Ray: Full Mouth 06/11/2027 025, 09/18/2022, 05/17/2018, Additional history exists Lipid Panel 04/30/2028 05/01/2023, 06/24, 09/25/2021, Additional history exists RSV Patients and Patients Aged 60 years or older (1 - 1-dose 75+ series) 2044 Hepatitis B Vaccines Completed 05/14/2010, 10/16/2009, 09/11/2009 Zoster Vaccines Completed 08/23/2021, 06/21/2021 Pneumococcal Vaccine: 50+ Years Completed 09/02/2023, 10/02/2005 COVID-19 Vaccine Completed 12/02/2023, 04/2021, 09/03/2020, Additional history exists Influenza Vaccine Completed 12/02/2023, , 01/21/2022, Additional history exists HIB Vaccines Aged Out No longer eligi ble based on patient's age to complete this topic HPV Vaccines Aged Out No longer eligi ble based on patient's age to complete this topic Hepatitis A Vaccines Aged Out No long er eligible based on patient's age to complete this topic IPV Vaccines Aged Out No longer eligi ble based on patient's age to complete this topic Meningococcal B Vaccine Aged Out No l onger eligible based on patient's age to complete this topic Meningococcal Vaccine Aged Out No kortney cole eligible based on patient's age to complete this topic RSV under 20 months Aged Out No longe r eligible based on patient's age to complete this topic Rotavirus Vaccines Aged Out No longer eligible based on patient's age to complete this topic Procedures Procedure Name Priority Date/Time Associated Diagnosis Comments CASE PRESENTATION, DETAILED AND EXTENSIVE TREATMENT PLANNING Routine 06/09/2024 9:00 AM EDT PANORAMIC RADIOGRAPHIC IMAGE Routine 06/09/2024 9:00 AM EDT PERIODIC ORAL EVALUATION - ESTABLISHED PATIENT Routine 06/09/2024 9:00 AM EDT PROPHYLAXIS - ADULT Routine 04/04/2024 1 :00 PM EST Periodontal disease Dental calculus Gingival bleeding BI MAMMOGRAM DIAGNOSTIC TOMOSYNTHESIS BILATERAL Routine 01/19/2024 1:00 PM EST BITEWINGS - 4 RADIOGRAPHIC IMAGES Routine 12/31/2023 8:00 AM EST Periodontal disease Dental calculus Gingival bleeding Acute gingival inflammation LIPID PANEL, STANDARD Routine 05/01/2023 10:16 AM EST Chronic fatigue ZZZ HISTORICAL HPV E6/E7 RFLX NEGRITA 16 18/45 Routine 12/18/2021 10:10 AM EDT HM COLONOSCOPY Routine 07/27/2020 from Last 3 Months or Most Recently Relevant to Health Maintenance Results * BI Mammogram Diagnostic Tomosynthesis Bilateral (01/19/2024 1:00 PM EST) Anatomical Region Laterality Modality Breast Bilateral Mammography 01/19/2024 1:00 PM EST Narrative 01/19/2024 1:49 PM EST ? [facility] ? [address] ?[place] [address] ? Mammography Report ? Signed ? Patient: Giacomo Vladimir,Ellen ?MR#: [id number] ?? [id number] ? : 1970 ?Acct:[id number] ? Age/Sex: 53 / F ?ADM Date: 01/19/24 ? Loc: HO.MAMMO ? Attending Dr: Ellen Shukla MD ? Ordering Physician: Ellen Humphrey MD ?Results: ?? 2Benign Findings ? Date of Service: 01/19/24 ?Follow Up: 1 Year From Orig ?? inal Mammogram ? Procedure(s): MM tomosynthesis diagnostic BI ?? Accession Number(s): [id number] ? cc: Ellen Humphrey MD ? EXAMINATION: ?? MM DIAGNOSTIC DIGITAL BREAST TOMOSYNTHESIS, BILATERAL ? CLINICAL INFORMATION: ? Final six-month follow-up (for 2 year stability) left breast ?? calcifications, lower inner quadrant, middle one third. Patient also ?? due for yearly. ? COMPARISON: ?? Mammography: 01/13/2023, 07/15/2022, 01/15/2022, 01/03/2022 (BI-RADS ?? 0), 12/31/2020, 12/29/2019. Dating back to 2017. ? TECHNIQUE: ?? Digital breast tomosynthesis is performed in both the craniocaudal and ?? mediolateral oblique views along with computer-aided detection (CAD). ?? Synthesized 2D images are generated from the tomosynthesis. In ?? addition, 2-D spot magnification left CC and LM views were also ?? obtained. ? FINDINGS: ?? The breasts are extremely dense, which lowers the sensitivity of ?? mammography (ACR BI-RADS breast composition Category d). ? Diagnostic views demonstrate loosely grouped, coarse, benign appearing ?? calcifications in the lower inner quadrant left breast, middle one ?? third, without aggressive changes. These are benign and have been ?? stable over a two-year period. ? There are stable oval masses in both breasts, some demonstrating coarse ?? calcification suggestive of degenerating fibroadenomas. These are ?? unchanged from multiple prior exams and benign. ? Otherwise, There are no suspicious masses, suspicious grouped ?? calcifications, or areas of architectural distortion in either breast. ?? The parenchymal pattern is stable from prior exams. There is no skin or ?? axillary abnormality. ? MM/MM tomosynthesis diagnostic BI ?? IMPRESSION: ?? 1. There are no findings suspicious for malignancy in either breast. ?? There are benign findings unchanged. ?? 2. There are benign calcifications in the lower inner left breast ?? middle one third, stable over 2 years. No further follow-up recommended. ?? 3. Recommend the patient resume routine annual screening mammography. ? ASSESSMENT: ? BI-RADS BI-RADS 2 - Benign Findings ? RECOMMENDATION: ?? 1 year F/U ? Results were provided to the patient at time of visit by the ?? technologist. ? This patient's information was entered into a reminder system with a ?? target due date for their next mammogram. ? Electronically signed by: ??Charan Gamez MD ??01/19/2024 01:47 PM EST RP ? Dictated By: ?Charan Gamez MD ? Signed By: ?<Electronically signed by Charan Gamez MD in OV> ?01/19/24 1347 ? DD/ 1300 ? TD/TT: 01/19/24 1310 ? Marketing Instructor: ? Procedure Note Donotuseinterpreter, Image - 01/19/2024 [facility] [address] [place] [address] Dr. Shaw, ILEANA [address] Mammography Report Signed Patient: Ellen GiangMR#: [id number] : 1970Acct:[id number] Age/Sex: 53 / FADM Date: 01/19/24 Loc: HO.MAMMO Attending Dr: Ellen Shukla MD Ordering Physician: Ellen Humphrey MDResults: 2Benign Findings Date of Service: 01/19/24Follow Up: 1 Year From Orig ina Mammogram Procedure(s): MM tomosynthesis diagnostic BI Accession Number(s): [id number] cc: Ellen Humphrey MD EXAMINATION: MM DIAGNOSTIC DIGITAL BREAST TOMOSYNTHESIS, BILATERAL CLINICAL INFORMATION: Final six-month follow-up (for 2 year stability) left breast calcifications, lower inner quadrant, middle one third. Patient also due for yearly. COMPARISON: Mammography: 01/13/2023, 07/15/2022, 01/15/2022, 01/03/2022 (BI-RADS 0), 12/31/2020, 12/29/2019. Dating back to 2017. TECHNIQUE: Digital breast tomosynthesis is performed in both the craniocaudal and mediolateral oblique views along with computer-aided detection (CAD). Synthesized 2D images are generated from the tomosynthesis. In addition, 2-D spot magnification left CC and LM views were also obtained. FINDINGS: The breasts are extremely dense, which lowers the sensitivity of mammography (ACR BI-RADS breast composition Category d). Diagnostic views demonstrate loosely grouped, coarse, benign appearing calcifications in the lower inner quadrant left breast, middle one third, without aggressive changes. These are benign and have been stable over a two-year period. There are stable oval masses in both breasts, some demonstrating coarse calcification suggestive of degenerating fibroadenomas. These are unchanged from multiple prior exams and benign. Otherwise, There are no suspicious masses, suspicious grouped calcifications, or areas of architectural distortion in either breast. The parenchymal pattern is stable from prior exams. There is no skin or axillary abnormality. MM/MM tomosynthesis diagnostic BI IMPRESSION: 1. There are no findings suspicious for malignancy in either breast. There are benign findings unchanged. 2. There are benign calcifications in the lower inner left breast middle one third, stable over 2 years. No further follow-up recommended. 3. Recommend the patient resume routine annual screening mammography. ASSESSMENT: BI-RADS BI-RADS 2 - Benign Findings RECOMMENDATION: 1 year F/U Results were provided to the patient at time of visit by the technologist. This patient's information was entered into a reminder system with a target due date for their next mammogram. Electronically signed by: Charan Gamez MD 01/19/2024 01:47 PM EST RP Workstation: [employer] Dictated By: Charan Gamez MD Signed By: <Electronically signed by Charan Gamez MD in OV> 01/19/24 1347 DD/ 1300 TD/TT: 01/19/24 1310 Marketing Instructor: Ellen Shukla MD IMG BI PROCEDURES Fin al Result * (ABNORMAL) Lipid Panel, Standard (05/01/2023 10:16 AM EST) Triglycerides 80 <150 mg/dL [facility] Comment:Desirable Triglyceri de: less than 150 mg/dLBorderline High Triglyceride 150-199 mg/dLHigh Triglyceride: 200-499 mg/dLVery High Triglyceride: greater than or equal to 5OO mg/dL Cholesterol 215(H) <200 mg/dL [facility] Comment:Desirable Cholestero l: less than 200 mg/dLBorderline High Cholesterol: 200-239 mg/dLHigh Cholesterol: greater than 239 mg/dL LDL Cholesterol Calculated 125(H) <100 mg/dL [facility] Comment:Desirable LDL: less than 100 mg/dLNear Optimal/Above Optimal LDL: 110- 129 mg/dLBorderline High LDL: 130-159 mg/dLHigh LDL: 160-189 mg/dLVery High LDL: greater than or equal to 190 mg/dL HDL Cholesterol 74 >40 mg/dL [facility] Comment:Desirable HDL: great er than 40 mg/dL Note: This HDL assay may give artificially low results in patients with liver disease. Blood Venous blood specimen / Unknown 05/01/2023 10:16 AM EST 05/01/2023 11:29 AM EST Ellen Shukla MD LAB BLOOD ORDERABLES Final Result [facility] [address] [place] [address] [phone] * HPV E6/E7 RFLX NEGRITA 16 18/45 (12/18/2021 10:10 AM EDT) Pathologist [facility] HPV mRNA E6/E7 rflx Not Detected Not Detected [facility] Comment: Methodology: Medical Engineer-Mediated Amplification This assay detects E6/E7 viral messenger RNA (mRNA) from 14 high-risk HPV types (16,18,31,33,35,39,45,51,52,56,58,59,66,68). Cervical sources are required for HPV testing. If a vaginal source from a patient who has had a total hysterectomy with removal of cervix was submitted, please contact the testing laboratory for alternative testing options. For additional information, please refer to http://education.Dwolla/faq/XSS872z6 (This link if provided for information/ educational purposes only.) THIS TEST WAS PERFORMED AT: [facility] [address] [place] [address],[address] [place], [place] ??[phone] TAMEKA LOTT MD 12/18/2021 10:1 0 AM EDT us [facility] [place] HISTORICAL/NON ORDERABLE LABS Fi nal Result [facility] * Hm Colonoscopy (07/27/2020) Pathologist [facility] Colonoscopy Normal Normal Narrative Addis Galaviz - 07/27/2020 Recommended 3 years follow up Historical Provider HEALTH MAINTENANCE Final Result from Last 3 Months or Most Recently Relevant to Health Maintenance [place] [facility] AD[facility] Care Teams Silk Screen Cutter Relationship Specialty Start Date End Date Ellen Humphrey MD [address] [place] [address] PCP - General Family Medicine 11/04/17
--- OUTSIDE RECORDS SUMMARY | 2024-07-08 14:30 | XMS_ITS | Encounter Summary ---
Author Organization [employer] Address [address] [place] [address] Care Team Providers Care Plow Holder Name Role Phone Ellen Humphrey MD Primary Care Provide r Encounter Details Date Type Department Care Team ([facility] st Contact Info) Description 07/08/2024 1:45 PM EDT Office Visit [facility] MEDICINE [address] [place], [place] [phone] Ellen Humphrey MD [address] [place], [place] [phone] Primary hypertension; Moderate persistent asthma with acute exacerbation; Mood disorder (CMS/HCC); Chronic pain of left knee Social History Tobacco Use Types Packs/Day Years [...] AM EDT documented as of this encounter Last Filed Vital Signs Vital Sign Reading Time Taken Comments Blood Pressure 135/84 07/08/2024 1:50 PM EDT Pulse 104 07/08/2024 1:50 PM EDT Temperature 35 ??C (95 ??F) 07/08/2024 1:50 PM EDT Respiratory Rate 20 07/08/2024 1:50 PM EDT Oxygen Saturation - - Inhaled Oxygen Concentration - - Weight 75 kg (165 lb 6.4 oz) 07/08/2024 1:50 PM EDT Height 172.7 cm (5' 8 ) 07/08/2024 1:50 PM EDT Body Mass Index 25.15 07/08/2024 1:50 PM EDT documented in this encounter Functional Status * Over the [...] 1:52 PM EDT Panda Germain MA * Poor appetite or overeating Answer Date of Assessment Author Nearly every day 07/08/2024 1:52 PM EDT Panda Germain MA * Feeling bad about yourself - or that you are a failure or have let yourself or your family down Answer Date of Assessment Author Nearly every day 07/08/2024 1:52 PM EDT Panda Germain MA * Trouble concentrating on things, such as reading the newspaper or watching television Answer Date of Assessment Author More than half the days 07/08/2024 1:52 PM EDT Panda Raya MA * Moving or speaking so slowly [...] Author Not at all 07/08/2024 1:52 PM MICHELLET Anushka Germain MA * Patient Health Questionnaire-9 Score Answer Date of Assessment Author 17 07/08/2024 1:52 PM EDT Anushka Germain MA * How difficult have these problems made it for you to do your work, take care of things at home, or get along with other people? Answer Date of Assessment Author Very difficult 07/08/2024 1:52 PM Anushka Wick MA documented as of this encounter Progress Notes * Ellen Shukla MD - 07/08/2024 1:45 PM EDT SUBJECTIVE: Ellen Gilbert is a 54 y.o. year old female who presents for Follow up . Acute Concerns: Patient reports she has been having pain again on her left knee also feels her knee is weak and hassome imbalance because of that Patient reports she feels anxious and frustrated because of situation with her son when these emotions sometimes makes her blood pressure go up Patient reports her asthma is poorly controlled she is taking her medication as prescribed Social History Social History Narrative Not on file Problem List[1] Benzodiazepine dependence, continuous (CMS/HCC) Chronic left shoulder pain Chronic cough Cobalamin deficiency Gastroesophageal reflux disease Migraine Moderate persistent asthma with acute exacerbation Mood disorder (CMS/HCC) Pernicious anemia Pain in female pelvis Fibromyalgia Seasonal allergies Hypersomnia Snoring Easy bruising Periodontal disease Dental calculus Encounter for screening mammogram for malignant neoplasm of breast Low back pain radiating to right lower extremity TMJ (temporomandibular joint disorder) Gingival bleeding Dental caries Chronic fatigue Bilateral foot pain Primary hypertension Partial edentulism Localized gingivitis Colon cancer screening Acute gingival inflammation Rash Dental abscess Symptomatic apical periodontitis Family History[2] Review of Systems Constitutional: Negative. HENT: Negative. Respiratory: Negative. Cardiovascular: Negative. Musculoskeletal: Positive for arthralgias. Psychiatric/Behavioral: The patient is nervous/anxious. OBJECTIVE: Vitals: 07/08/24 1350 BP: 135/84 BP Location: Left arm Patient Position: Sitting BP Cuff Size: Adult Pulse: 104 Resp: 20 Temp: 95 ??F (35 ??C) TempSrc: Oral Weight: 165 lb 6.4 oz (75 kg) Height: 5' 8 (1.727 m) Physical Exam Constitutional: Appearance: Normal appearance. Cardiovascular: Rate and Rhythm: Normal rate and regular rhythm. Pulmonary: Effort: Pulmonary effort is normal. Breath sounds: Normal breath sounds. Abdominal: General: Abdomen is flat. Palpations: Abdomen is soft. Musculoskeletal: Right lower leg: No edema. Left lower leg: No edema. Neurological: Mental Status: She is alert. Follow Up: Follow up in about 3 months (around 10/08/2024) for chronic conditions . Medications Ordered Prior to Encounter[3] Problem List Items Addressed This Visit Primary hypertension I advised: - Aerobic exercise to reduce BP. Initial goal of 30 min walk 3-5x/week. Increase as tolerated. - low-sodium diet (goal: <2g/day) and heart healthy diet such as DASH to reduce BP and prevent ASCVD. - Home BP monitoring 1-2 x day with goal of <140/90. - Seek immediate medical attention for chest pain, palpitations, SOB, syncope, or sudden changes inmental status. - Do not change or discontinue current prescriptions without first consulting health care provider Relevant Medications olmesartan (Benicar) 20 MG tablet Moderate persistent asthma with acute exacerbation Fairly controlled continue to follow-up with pulmonology Mood disorder (CMS/HCC) Continue to follow-up with psychiatrist and therapist Chronic pain of left knee X-ray ordered today patient will be contacted with results and plan Relevant Orders XR Knee 4+ Views Left [1] Patient Active Problem List Diagnosis Benzodiazepine dependence, continuous (CMS/HCC) Chronic left shoulder pain Chronic cough Cobalamin deficiency Gastroesophageal reflux disease Migraine Moderate persistent asthma with acute exacerbation Mood disorder (CMS/HCC) Pernicious anemia Pain in female pelvis Fibromyalgia Seasonal allergies Hypersomnia Snoring Easy bruising Periodontal disease Dental calculus Encounter for screening mammogram for malignant neoplasm of breast Low back pain radiating to right lower extremity TMJ (temporomandibular joint disorder) Gingival bleeding Dental caries Chronic fatigue Bilateral foot pain Primary hypertension Partial edentulism Localized gingivitis Colon cancer screening Acute gingival inflammation Rash Dental abscess Symptomatic apical periodontitis Chronic pain of left knee [2] No family history on file. [3] Current Outpatient Medications on File Prior to Visit Medication Sig Dispense Refill acetaminophen (Tylenol 8 Hour) 650 MG ER tablet Take 1 tablet (650 mg) by mouth every 8 (eight) hours if needed for mild pain. Do not crush, chew, or split. 30 tablet 0 albuterol (2.5 MG/3ML) 0.083% nebulizer solution INHALE 1 AMPULE USING A NEBULIZER EVERY 4 HOURS ASNEEDED FOR WHEEZING 90 mL 3 cetirizine (ZyrTEC) 10 MG tablet TAKE 1 TABLET BY MOUTH EVERY DAY 90 tablet 1 chlorhexidine (Peridex) 0.12 % solution Swish 15 mL morning and night for 1 minute. Spit, do not swallow. Do not eat or drink for 30 minutes following use. 473 mL 0 clonazePAM (KlonoPIN) 0.5 MG tablet TAKE 1 TABLET BY MOUTH ONCE DAILY NEEDED DULoxetine (Cymbalta) [address] capsule Take 30 mg by mouth in the morning. fluticasone (Flonase) 50 MCG/ACT nasal spray INSTILL 2 SPRAYS IN EACH NOSTRIL ONCE DAILY 48 g 1 gabapentin (Neurontin) 300 MG capsule TAKE 1 CAPSULE BY MOUTH THREE TIMES DAILY 90 capsule 3 levalbuterol (Xopenex) 45 MCG/ACT inhaler INHALE 1 PUFF EVERY 6 HOURS NEEDED FOR WHEEZING montelukast (Singulair) 10 MG tablet TAKE 1 TABLET BY MOUTH EVERY DAY IN THE EVENING 90 tablet 1 triamcinolone (Kenalog) 0.1 % cream Apply topically if needed in the morning and at bedtime (pain and swelling). 30 g 0 [DISCONTINUED] olmesartan (Benicar) 20 MG tablet Take 1 tablet (20 mg) by mouth Once per day. 90 tablet 0 No current facility-administered medications on file prior to visit. documented in this encounter Miscellaneous Notes * Assessment & Plan Note - Ellen Shukla MD - 07/08/2024 2:23 PM EDT Associated Problem(s): Moderate persistent asthma with acute exacerbation Fairly controlled continue to follow-up with pulmonology * Assessment & Plan Note - Ellen Shukla MD - 07/08/2024 2:23 PM EDT Associated Problem(s): Chronic pain of left knee X-ray ordered today patient will be contacted with results and plan * Assessment & Plan Note - Ellen Shukla MD - 07/08/2024 2:22 PM EDT Associated Problem(s): Mood disorder (CMS/HCC) Continue to follow-up with psychiatrist and therapist * Assessment & Plan Note - Ellen Shukla MD - 07/08/2024 2:22 PM EDT Associated Problem(s): Primary hypertension I advised: - Aerobic exercise to reduce BP. Initial goal of 30 min walk 3-5x/week. Increase as tolerated. - low-sodium diet (goal: <2g/day) and heart healthy diet such as DASH to reduce BP and prevent ASCVD. - Home BP monitoring 1-2 x day with goal of <140/90. - Seek immediate medical attention for chest pain, palpitations, SOB, syncope, or sudden changes inmental status. - Do not change or discontinue current prescriptions without first consulting health care provider documented in this encounter Plan of Treatment Upcoming Encounters Date Type Department Care Team (Late st Contact Info) Description 07/21/2024 10:30 AM EDT Office Visit [facility] ADULT DENTAL [address] [place] [address] Sonu Franco DDS [address] [place] [address] 10/03/2024 1:00 PM EDT Office Visit [facility] ADULT DENTAL [address] [place] [address] Farzad Myersaris [address] [place] [address] Scheduled Orders Name Type Priority Associated Diagnoses Orde r Schedule XR Knee 4+ Views Left Imaging Routine Chronic pain of left knee Expected: 07/08/2024, Expires: 07/08/2025 documented as of this encounter Visit Diagnoses Diagnosis Primary hypertension Unspecified essential hypertension Moderate persistent asthma with acute exacerbation Mood disorder (CMS/[facility]) Unspecified episodic mood disorder Chronic pain of left knee documented in this encounter Additional Health Concerns Assessment Noted Time PHQ-9 Depression Total Score: 17 025 1:52 PM EDT documented as of this encounter Care Teams Plow Holder Relationship Specialty Start Date End Date Ellen Humphrey MD [address] [place] [address] PCP - General Family Medicine 11/04/17 documented as of this encounter
--- OUTSIDE RECORDS SUMMARY | 2024-07-08 14:30 | XMS_ITS | Encounter Summary ---
Author Organization [employer] Address [address] [place] [address] Care Team Providers Care Copier Repair Technician Name Role Phone Ellen Humphrey MD Primary Care Provide r Encounter Details Date Type Department Care Team ([facility] st Contact Info) Description 12/03/2022 Abstract [facility] MEDICINE [address] [place], [place] [phone] Ellen Humphrey MD [address] [place], [place] [phone] Social History Tobacco Use Types Packs/Day Years Used Date Smoking Tobacco: Never Smokeless Tobacco: Never Depression Answer Date Recorded Patient Health Questionnaire-9 Score 0 07/11/2022 Housing Stability Answer Date Recorded What is your housing situation today? I have caden meade 12/02/[address] you li ve. Do you have problems with any of the following? None of the above 12/02/2022 Food Insecurity Answer Date Recorded Within the past 12 months, y ou worried that your food would run out before you got money to buy more: Never True 12/02/2022 Within the past 12 months,th e food you bought just didn't last and you didn't have enough money to get more: Never True 11/2022 Transportation Answer Date Recorded In the past 12 months, has l ack of transportation kept you from medical appts, meetings, work or from getting things needed for daily living? No 12/02/2022 Utilities Answer Date Recorded In the past 12 months, has t he electric, gas, oil or water company threatened to shut off services in your home? No 12/02/2022 Depression Answer Date Recorded Patient Health Questionnaire-2 Score 0 07/11/2022 Comments Unknown Sex and Gender Information Value [...] Description 07/21/2024 10:30 AM EDT Office Visit [facility] ADULT DENTAL [address] [place] [address] Sonu Franco DDS [address] [place] [address] 10/03/2024 1:00 PM EDT Office Visit [facility] ADULT DENTAL [address] [place] [address] LouisSayda [address] [place] [address] documented as of this encounter Procedures Procedure Name Priority Date/Time Associated Diagnosis Comments COLONOSCOPY Routine 07/27/2020 documented in this encounter Results * Colonoscopy (07/27/2020) Colonoscopy Normal Normal Narrative Addis Galaviz - 07/27/2020 Recommended 3 years follow up Historical Provider HEALTH MAINTENANCE Final Result documented in this encounter Visit Diagnoses Not on filedocumented in this encounter Additional Health Concerns Assessment Noted Time PHQ-9 Depression Total Score: 0 07/12/19 23 10:04 AM EDT documented as of this encounter Care Teams Copier Repair Technician Relationship Specialty Start Date End Date Ellen Humphrey MD [address] [place] [address] PCP - General Family Medicine 11/04/17 documented as of this encounter
--- OUTSIDE RECORDS SUMMARY | 2024-07-08 14:30 | XMS_ITS | Encounter Summary ---
Author Organization [employer] Address [address] [place] [address] Care Team Providers Care Solar Business Developer Name Role Phone Ellen Humphrey MD Primary Care Provide r Encounter Details Date Type Department Care Team (Latest Contact Info) Description 05/13/2021 Abstract [facility] Dental, Provider, DDS Social History Tobacco [...] Description 07/21/2024 10:30 AM EDT Office Visit [facility]ULT [facility] [address] [place] [address] Sonu Franco DDS [address] [place] [address] 10/03/2024 1:00 PM EDT Office Visit [facility] [address] [place] [address] Sayda Myers [address] [place] [address] documented as of this encounter Visit Diagnoses Not on filedocumented in this encounter Care Teams Solar Business Developer Relationship Specialty Start Date End Date Ellen Humphrey MD [address] [place] [address] PCP - General Family Medicine 11/04/17 documented as of this encounter
--- OUTSIDE RECORDS SUMMARY | 2024-07-08 14:30 | XMS_ITS | Encounter Summary ---
Author Organization [employer] Address [address] 7t [place] [address] Care Team Providers Care Campground Hand Name Role Phone Ellen Humphrey MD Primary Care Provide r Encounter Details Date Type Department Care Team (Latest Contact Info) Description 05/17/2018 Abstract [facility] CONVERSIONS Dental, Provider, DDS Social History [...] Description 07/21/2024 10:30 AM EDT Office Visit [facility] ADULT DENTAL [address] [place] [address] Sonu Franco DDS [address] [place] [address] 10/03/2024 1:00 PM EDT Office Visit [facility] ADULT DENTAL [address] [place] [address] Sayda Myers [address] [place] [address] documented as of this encounter Visit Diagnoses Not on filedocumented in this encounter Care Teams Campground Hand Relationship Specialty Start Date End Date Ellen Humphrey MD [address] [place] [address] PCP - General Family Medicine 11/04/17 documented as of this encounter
--- OUTSIDE RECORDS SUMMARY | 2024-07-08 14:30 | XMS_ITS | Encounter Summary ---
Author Organization [employer] Address [address] [place] [address] Care Team Providers Care Regional Maintenance Manager Name Role Phone Ellen Humphrey MD Primary Care Provide r Reason for Visit * Reason Onset Date Comments chart prep 07/07/2024 Encounter Details Date Type Department Care Team ([facility] Contact Info) Description 07/07/2024 Telephone [facility] MEDICINE [address] [place] [address] Ellen Humphrey MD [address] [place] [address] chart prep Social History Tobacco Use Types Packs/Day Years [...] AM EDT documented as of this encounter Miscellaneous Notes * Telephone Encounter - Jessica Mckeon MA - 07/07/2024 11:22 AM EDT Chart Prep Labs: not applicable Images: done Referrals: complete Vaccines due: Tdap Screenings: colonoscopy Overdue care gaps: PHQ-9, DESTINEE-7, Disability screen, and Tobacco documented in this encounter Plan of Treatment Upcoming Encounters Date Type Department Care Team (Late st Contact Info) Description 07/21/2024 10:30 AM EDT Office Visit [facility] ADULT DENTAL [address] [place] [address] Sonu Franco DDS [address] [place] [address] 10/03/2024 1:00 PM EDT Office Visit [facility] ADULT DENTAL [address] [place] [address] Sayda Myers [address] [place] [address] documented as of this encounter Visit Diagnoses Not on filedocumented in this encounter Additional Health Concerns Assessment Noted Time PHQ-9 Depression Total Score: 0 12/02/19 24 10:13 AM EDT documented as of this encounter Care Teams Regional Maintenance Manager Relationship Specialty Start Date End Date Ellen Humphrey MD [address] [place] [address] PCP - General Family Medicine 11/04/17 documented as of this encounter
== END 2024-07-08 14:28 | disposition home or self-care (01) ==
LOC: HO.HHCX 14:27
PROVIDERS: PCP Internal Medicine; Visit Provider Internal Medicine
DX: M25.562 Pain in left knee (principal); G89.29 Other chronic pain
CPT/HCPCS: 73564

== ENCOUNTER → 2024-07-08 14:28 | Outpatient (BNV) | payer MEDICAID, SELFPAY | PROVIDERS: PCP Internal Medicine; Visit Provider Radiology Diagnostic Radiology | DX: M25.562 Pain in left knee (principal) | CPT/HCPCS: 73564 ==

== ENCOUNTER 2024-10-26 10:00 | Outpatient (REF) | payer MEDICAID, SELFPAY ==
--- OUTSIDE RECORDS SUMMARY | 2024-10-25 18:00 | XMS_ITS | Encounter Summary ---
Author Organization [employer] Address [address] [place] [address] Care Team Providers Care Title Clerk Name Role Phone Ellen Humphrey MD Primary Care Provide r Reason for Visit * Reason Comments pain Left leg Encounter Details Date Type Department Care Team ([facility] st Contact Info) Description 10/25/2024 6:00 PM EDT Office Visit [facility] [address] [place] [address] Acute right ankle pain (Primary Dx) Social History Tobacco Use Types Packs/Day Years Used Date Smoking Tobacco: Never Passive Smoke Exposure: Never Smokeless Tobacco: Never Alcohol Use Standard Drinks/Week Comments Never 0 (1 standard drink = 0.6 oz [...] Sign Reading Time Taken Comments Blood Pressure 146/74 10/25/2024 5:08 PM EDT Pulse 103 10/25/2024 5:08 PM EDT Temperature 35.3 C (95.5 F) 10/25/2024 5:08 PM EDT Respiratory Rate 25 10/25/2024 5:08 PM EDT Oxygen Saturation 98% 10/25/2024 5:08 PM EDT Inhaled Oxygen Concentration - - Weight 76.7 kg (169 lb 3.2 oz) 10/25/2024 5:08 P M EDT Height 157.5 cm (5' 2 ) 10/25/2024 5:08 PM EDT Body Mass Index 30.95 10/25/2024 5:08 PM EDT documented in this encounter Plan of Treatment Not on file documented as of this encounter Procedures Procedure Name Priority Date/Time Associated Diagnosis Comments XR FOOT 3+ VIEWS RIGHT Routine 10/26/2024 9:29 AM EDT documented in this encounter Results * XR Foot 3+ Views Right (10/26/2024 9:29 AM EDT) Anatomical Region Laterality Modality Lower Extremities, Foot Right [facility] 10/26/2024 9:29 AM EDT Narrative 10/26/2024 10:33 [place] [address] XRay Report Signed Patient: Ellen Giang MR#: [id number] : 1970 Acct:[id number] Age/Sex: 54 / F ADM Date: 10/26/24 Loc: [facility] Attending Dr: Kevin Brooks RADIATION ONCOLOGY THERAPIST Ordering Physician: Kevin Brooks NP Date of Service: 10/26/24 Procedure(s): XR foot RT min 3V Accession Number(s): [id number] cc: Ellen Humphrey MD; Kevin Brooks NP Reason for Exam: unable to bear weight on r ankle EXAMINATION: XR FOOT, RIGHT CLINICAL INFORMATION: unable to bear weight on r ankle , fall with bruise on top of foot. COMPARISON: None available. TECHNIQUE: AP, lateral, and oblique views of the right foot. FINDINGS: No fracture, dislocation, or suspicious bone lesion. There is normal alignment. Joint spaces are normal. The midfoot and hindfoot are normal. There is a small dorsal calcaneal spur. No discrete soft tissue abnormality is evident. XR/XR foot RT min 3V IMPRESSION: No acute bony abnormality of the right foot. Electronically signed by: Charan Gamez MD 10/26/2024 10:30 AM EDT Dictated By: Charan Gamez MD Signed By: <Electronically signed by Charan Gamez MD in OV> 10/26/24 1030 DD/ 8 TD/TT: 10/26/24 0930 Graining Machine Operator: Procedure Note Donotuseinterpreter, Image - 10/26/[address] [address] XRay Report Signed Patient: Ellen GiangMR#: [id number] : 1970Acct:[id number] Age/Sex: 54 / FADM Date: 10/26/24 Loc: [facility] Attending Dr: Kevin Brooks RADIATION ONCOLOGY THERAPIST Ordering Physician: Kevin Brooks NP Date of Service: 10/26/24 Procedure(s): XR foot RT min 3V Accession Number(s): [id number] cc: Ellen Humphrey MD; Kevin Brooks NP Reason for Exam: unable to bear weight on r ankle EXAMINATION: XR FOOT, RIGHT CLINICAL INFORMATION: unable to bear weight on r ankle , fall with bruise on top of foot. COMPARISON: None available. TECHNIQUE: AP, lateral, and oblique views of the right foot. FINDINGS: No fracture, dislocation, or suspicious bone lesion. There is normal alignment. Joint spaces are normal. The midfoot and hindfoot are normal. There is a small dorsal calcaneal spur. No discrete soft tissue abnormality is evident. XR/XR foot RT min 3V IMPRESSION: No acute bony abnormality of the right foot. Electronically signed by: Charan Gamez MD 10/26/2024 10:30 AM EDT RP Dictated By: Charan Gamez MD Signed By: <Electronically signed by Charan Gamez MD in OV> 10/26/24 1030 DD/ 0929 TD/TT: 10/26/24 0930 Graining Machine Operator: Kevin Brooks DERMATOLOGICAL SURGEON IMG XR PROCEDURES Final R esult documented in this encounter Visit Diagnoses Diagnosis Acute right ankle pain- Primary documented in this encounter Additional Health Concerns Assessment Noted Time PHQ-9 Depression Total Score: 17 025 1:52 PM EDT documented as of this encounter Care Teams Title Clerk Relationship Specialty Start Date End Date Ellen Humphrey MD [address] [place] [address] PCP - General Family Medicine 11/04/17 documented as of this encounter
--- NOTE | ~2024-10-26 | XR_ITS ---
EXAMINATION: XR FOOT, RIGHT CLINICAL INFORMATION: unable to bear weight on r ankle , fall with bruise on top of foot. COMPARISON: None available. TECHNIQUE: AP, lateral, and oblique views of the right foot. FINDINGS: No fracture, dislocation, or suspicious bone lesion. There is normal alignment. Joint spaces are normal. The midfoot and hindfoot are normal. There is a small dorsal calcaneal spur. No discrete soft tissue abnormality is evident. XR/XR foot RT min 3V IMPRESSION: No acute bony abnormality of the right foot. Electronically signed by: Charan Gamez MD 10/26/2024 10:30 AM EDT
--- OUTSIDE RECORDS SUMMARY | 2024-10-26 11:30 | XMS_ITS | Encounter Summary ---
Author Organization [employer] Address [address] [place] [address] Care Team Providers Care Supervisor Roller Shop Name Role Phone Ellen Humphrey MD Primary Care Provide r Encounter Details Date Type Department Care Team ([facility] st Contact Info) Description 12/03/2022 Abstract [facility] MEDICINE [address] [place], [place] [phone] Ellen Humphrey MD [address] [place], [place] [phone] Social History Tobacco Use Types Packs/Day Years [...] as of this encounter Plan of Treatment Not on file documented as of this encounter Procedures Procedure Name Priority Date/Time Associated Diagnosis Comments HM COLONOSCOPY Routine 07/27/2020 documented in this encounter Results * Hm Colonoscopy (07/27/2020) Colonoscopy Normal Normal Narrative Addis Galaviz - 07/27/2020 Recommended 3 years follow up Historical Provider HEALTH MAINTENANCE Final Result documented in this encounter Visit Diagnoses Not on filedocumented in this encounter Additional Health Concerns Assessment Noted Time PHQ-9 Depression Total Score: 0 07/12/19 23 10:04 AM EDT documented as of this encounter Care Teams Supervisor Roller Shop Relationship Specialty Start Date End Date Ellen Humphrey MD [address] [place] [address] PCP - General Family Medicine 11/04/17 documented as of this encounter
--- OUTSIDE RECORDS SUMMARY | 2024-10-26 11:30 | XMS_ITS | Clinical Summary ---
Author Organization [employer] Address [address] [facility] 7[address] [place] [address] Care Team Providers Care Healthcare Risk Control Consultant Name Role Phone Ellen Humphrey MD Primary Care Provide r Allergies Active Allergy Reactions Criticality Noted Date Comments Aspirin Rash Low 05/24/2010 Medications fluticasone (Flonase) 50 MCG/ACT nasal sprayIndications :Seasonal allergies INSTILL 2 SPRAYS IN EACH NOSTRIL ONCE DAILY 48 g 1 023 Active DULoxetine (Cymbalta) [address] capsule Take 30 mg by mouth in the morning. 023 Active clonazePAM (KlonoPIN) 0.5 MG tablet TAKE 1 TABLET BY MOUTH ONCE DAILY NEEDED 023 Active levalbuterol (Xopenex) 45 MCG/ACT inhaler INHALE 1 PUFF EVERY 6 HOURS NEEDED FOR WHEEZING 023 Active triamcinolone (Kenalog) 0.1 % creamIndications :Rash Apply topically if needed in the morning and at bedtime (pain and swelling). 30 g 025 Active albuterol (2.5 MG/3ML) 0.083% nebulizer solutionIndicati ons:Moderate persistent asthma, unspecified whether complicated INHALE 1 AMPULE USING A NEBULIZER EVERY 4 HOURS NEEDED FOR WHEEZING 90 mL 3 025 Active chlorhexidine (Peridex) 0.12 % solutionIndicati ons:Dental abscess,Symptoma tic apical periodontitis Swish 15 mL morning and night for 1 minute. Spit, do not swallow. Do not eat or drink for 30 minutes following use. 473 mL 025 Active Additional Information Patient not taking.Reported on 07/21/2024 gabapentin (Neurontin) 300 MG capsule TAKE 1 CAPSULE BY MOUTH THREE TIMES DAILY 90 capsule 3 Active montelukast (Singulair) 10 MG tablet TAKE 1 TABLET BY MOUTH EVERY EVENING 90 tablet 1 025 Active cetirizine (ZyrTEC) 10 MG tablet TAKE 1 TABLET BY MOUTH EVERY DAY 90 tablet 1 Active olmesartan (Benicar) 20 MG tabletIndication s:Primary hypertension Take 1 tablet (20 mg) by mouth Once per day. 90 tablet 1 025 2025 Active acetaminophen (Tylenol 8 Hour) 650 MG ER tabletIndication s:Acute right ankle pain Take 1 tablet (650 mg) by mouth every 8 (eight) hours if needed for mild pain. Do not crush, chew, or split. 30 tablet 025 Active acetaminophen (Tylenol 8 Hour) 650 MG ER tabletIndication s:Dental abscess,Symptoma tic apical periodontitis Take 1 tablet (650 mg) by mouth every 8 (eight) hours if needed for mild pain. Do not crush, chew, or split. 30 tablet 025 2024 Discontinued(R eorder (will not trigger notification to Pharmacy)) olmesartan (Benicar) 20 MG tabletIndication s:Primary hypertension Take 1 tablet (20 mg) by mouth Once per day. 90 tablet 025 2024 Discontinued(R eorder (will not trigger notification to Pharmacy)) acetaminophen (Tylenol 8 Hour) 650 MG ER tablet Take 1 tablet (650 mg) by mouth every 8 (eight) hours if needed for mild pain. Do not crush, chew, or split. 30 tablet 025 2024 Discontinued Active Problems Problem Noted Date Diagnosed Date Moderate persistent asthma without complication 10/13/2024 Assessment & Plan (10/13/2024 2:52 PM EDT): Improved continue to follow-up with [employer] certified network associate Chronic pain of left knee 07/08/2024 Assessment [...] 05/01/2023 Primary hypertension 05/01/2023 Assessment & Plan (10/13/2024 2:52 PM EDT): I advised: - Aerobic exercise [...] consulting health care provider Assessment & Plan (07/08/2024 2:22 PM EDT): [...] Easy bruising 10/22/2017 Benzodiazepine dependence, continuous 12/22/2016 Assessment & Plan (10/13/2024 2:52 PM EDT): Stable continue to follow with psychiatrist Chronic cough 12/22/2016 Mood disorder 12/22/2016 Assessment & Plan (10/13/2024 2:52 PM EDT): Stable continue to follow with therapist and psychiatrist Assessment & Plan (07/08/2024 2:22 PM EDT): Continue to follow-up with psychiatrist and therapist Assessment & Plan (09/30/2022 2:33 PM EDT): Patient continues to follow with therapist and psychiatrist Pernicious anemia 09/04/2014 Cobalamin deficiency 05/06/2012 Gastroesophageal reflux disease 05/06/2012 Migraine 05/06/2012 Encounters Date Type Department Care Team Description 10/25/2024 6:00 PM EDT Office Visit [facility] [address] [place] [address] [phone] Acute right ankle pain (Primary Dx) 10/25/2024 Travel 10/13/2024 1:45 PM EDT Office Visit [facility] [address] [place] [phone] Ellen Humphrey MD Primary hypertension (Primary Dx); Benzodiazepine dependence, continuous (CMS/HCC); Mood disorder (CMS/HCC); Moderate persistent asthma without complication; Encounter for immunization 10/13/2024 Travel 10/11/2024 Telephone [facility] [address] [place], [place] [phone] Ellen Humphrey MD Chart Prep 08/10/2024 Refill [facility] [address] [place] [phone] Ellen Humphrey MD from Last 3 Months Immunizations Immunization Administration [...] tox oid, preservative free, adsorbed 06/23/2008,11/30/1995 Tdap 10/13/2024,11/10/2012 Zoster, Recombinant 08/23/2021,06/21/2021 Social History Tobacco Use Types Packs/Day Years Used Date Smoking Tobacco: Never Passive Smoke Exposure: Never Smokeless Tobacco: Never Tobacco Cessation:Counseling Given: Not Answered Alcohol Use Standard Drinks/Week Comments Never 0 [...] Mass Index 30.95 10/25/2024 5:08 PM EDT Plan of Treatment Health Maintenance Due Date Last Done Comments CT Colonography 1969 FIT DNA/Cologuard 1969 FIT 1969 FOBT 1970 HIV Screening 1970 Sigmoidoscopy 1969 Hepatitis C Screening 1987 Dental Prophylaxis 10/03/2024 04/04/2024, 1 03/01/2023, 03/27/2023, Additional history exists Influenza Vaccine (#1) 2024 , 02/09/2023, 01/21/2022, Additional history exists Dental Oral Exam 12/10/2024 06/09/2024, 08/2023, 03/27/2023, Additional history exists Dental X-Ray: Bitewings 12/31/2024 12/31/19 24, 09/18/2022, 05/13/2021, Additional history exists Depression Monitoring 01/08/2025 07/08/2024, 025 Mammogram 01/18/2025 01/19/2024, 12/25, 12/06/2018, Additional history exists Alcohol/Substance Use Screening 04/18/2025 04/18/2024 SDOH Screening 04/18/2025 04/18/2024 Disability Screening 07/08/2025 07/08/2024 Tobacco Screening 10/25/2025 10/25/2024 Colonoscopy 11/15/2026 11/16/2023, 07/27/2020 Colorectal Cancer Screening 11/15/2026 Cervical Cancer Screening 12/18/2026 HPV/Cotest 12/18/2026 12/18/2021, 11/24, 01/31/2020, Additional history exists Pap Smear 12/18/2026 Dental X-Ray: Full Mouth 06/11/2027 025, 09/18/2022, 05/17/2018, Additional history exists Lipid Panel 04/30/2028 05/01/2023, 06/24, 09/25/2021, Additional history exists DTaP/Tdap/Td Vaccines (3 - Td or Tdap) 10/13/2034 10/13/2024, 11/10/2012, 06/23/2008, Additional history exists RSV Patients and Patients Aged 60 years or older (1 - 1-dose 75+ series) 2044 Hepatitis B Vaccines Completed 05/14/2010, 10/16/2009, 09/11/2009 Zoster Vaccines Completed 08/23/2021, 06/21/2021 Pneumococcal Vaccine: 50+ Years Completed 09/02/2023, 10/02/2005 COVID-19 Vaccine Completed 12/02/2023, 04/2021, 09/03/2020, Additional history exists HIB Vaccines Aged Out [...] VIEWS RIGHT Routine 10/26/2024 9:29 AM EDT PANORAMIC RADIOGRAPHIC IMAGE Routine 06/09/2024 [...] Dental calculus Gingival bleeding Acute gingival inflammation HM COLONOSCOPY Routine 11/16/2023 LIPID PANEL, STANDARD Routine 05/01/2023 10:16 AM EST Chronic fatigue ZZZ HISTORICAL HPV E6/E7 RFLX NEGRITA 16 18/45 Routine 12/18/2021 10:10 AM EDT from Last 3 Months or Most Recently Relevant to Health Maintenance Results * XR Foot 3+ Views Right (10/26/2024 9:29 AM EDT) Anatomical Region Laterality Modality Lower Extremities, Foot Right Radiogra phic Imaging 10/26/2024 9:29 AM EDT Narrative 10/26/2024 10:33 AM EDT [address] [address] XRay Report Signed Patient: Giacomo Vladimir,Ellen MR#: [id number] : 1970 Acct:[id number] Age/Sex: 54 / F ADM Date: 10/26/24 Loc: JAV[facility] Attending Dr: Kevin Brooks COMMUNITY PLANNING TECHNICIAN Ordering Physician: Kevin Brooks NP Date of Service: 10/26/24 Procedure(s): XR foot RT min 3V Accession Number(s): [id number] cc: Ellen Humphrey MD; Kevin Brooks NP [...] 10/26/24 1030 DD/ 0929 TD/TT: 10/26/24 0930 [employer] Software Developer: Procedure Note Donotuseinterpreter, Image - 10/26/[address] [address] XRay Report Signed Patient: Ellen GiangMR#: [id number] : 1970Acct:[id number] Age/Sex: 54 / FADM Date: 10/26/24 Loc: JAVAN Attending Dr: Kevin Brooks COMMUNITY PLANNING TECHNICIAN Ordering Physician: Kevin Brooks NP Date of Service: 10/26/24 Procedure(s): XR foot RT min 3V Accession Number(s): [id number] cc: Ellen Humphrey MD; Kevin Brooks NP [...] in OV> 10/26/24 1030 DD/ 8 TD/TT: 10/26/24929 [employer] Software Developer: [facility] Brooks IT SUPPORT SPECIALIST IMG XR PROCEDURES Final R esult * BI Mammogram Diagnostic Tomosynthesis Bilateral (01/19/2024 1:00 PM EST) Anatomical Region Laterality Modality Breast Bilateral Mammography 01/19/2024 1:00 PM EST Narrative 01/19/2024 1:49 PM EST [facility] [address] [place] [address] Mammography Report Signed Patient: Ellen Giang MR#: [id number] : 1970 Acct:[id number] Age/Sex: 53 / F ADM Date: 01/19/24 Loc: HO.MAMMO Attending Dr: Ellen Shukla MD Ordering Physician: Ellen Humphrey MD Results: 2Benign Findings Date of Service: 01/19/24 Follow Up: 1 Year From Orig ina Mammogram Procedure(s): MM tomosynthesis diagnostic BI Accession Number(s): [id number] cc: Ellen Humphrey MD EXAMINATION: MM DIAGNOSTIC [...] by: Charan Gamez MD 01/19/2024 01:47 PM [facility] Dictated By: Charan Gamez MD Signed By: <Electronically signed by Charan Gamez MD in OV> 01/19/24 1347 DD/ 1300 TD/TT: 01/19/24 1310 [employer] Software Developer: Procedure Note Donotuseinterpreter, Image - 01/19/2024 [place] [facility] [address] [place] [address] Mammography Report Signed Patient: Ellen GiangMR#: [id number] : 1970Acct:[id number] Age/Sex: 53 / FADM Date: 01/19/24 Loc: HO.MAMMO Attending Dr: Ellen Shukla MD Ordering Physician: Ellen Humphrey MDResults: 2Benign Findings Date of Service: 01/19/24Follow Up: 1 Year From Orig inal Mammogram Procedure(s): MM tomosynthesis diagnostic BI Accession Number(s): [id number] cc: Ellen Humphrey MD EXAMINATION: MM DIAGNOSTIC [...] Charan Gamez MD 01/19/2024 01:47 PM EST Workstation: [employer] Dictated By: Charan Gamez MD Signed By: <Electronically signed by Charan Gamez MD in OV> 01/19/24 1347 DD/ 1300 TD/TT: 01/19/24 1310 [employer] Software Developer: Ellen Shukla MD IMG BI PROCEDURES Fin al Result * Hm Colonoscopy (11/16/2023) Pathologist [facility] Colonoscopy Normal Normal Narrative Addis Galaviz - 11/16/2023 Recommended 3 years . See see external hospital admission note on 11/16/2023. Reviewed colonoscopy letter and follow up was confirmed for 3 years [facility] Provider [facility] MAINTENA[facility]CE Final Result * (ABNORMAL) Lipid Panel, Standard (05/01/2023 10:16 AM EST) Triglycerides 80 <150 mg/dL [facility] Comment:Desirable Triglyceri de: less than 150 mg/dLBorderline High Triglyceride 150-199 mg/dLHigh Triglyceride: 200-499 mg/dLVery High Triglyceride: greater than or equal to 5OO mg/dL Cholesterol 215(H) <200 mg/dL [facility] Comment:Desirable Cholestero l: less than 200 mg/dLBorderline High Cholesterol: 200-239 mg/dLHigh Cholesterol: greater than 239 mg/dL LDL Cholesterol Calculated 125(H) <100 mg/dL [facility] Comment:Desirable LDL: less than 100 mg/dLNear Optimal/Above Optimal LDL: 110- 129 mg/dLBorderline High LDL: 130-159 mg/dLHigh LDL: 160-189 mg/dLVery High LDL: greater than or equal to 190 mg/dL HDL Cholesterol 74 >40 mg/dL [facility] Comment:Desirable HDL: great er than 40 mg/dL Note: This HDL assay may give artificially low results in patients with liver disease. Blood Venous blood specimen / Unknown 05/01/2023 10:16 AM EST 05/01/2023 11:29 AM EST us Ellen Shukla MD LAB BLOOD ORDERABLES Final Result Performing Organization Address City/[facility]/ZIP Co de Phone Number [facility] [address] [place] [phone] * HPV E6/E7 RFLX NEGRITA 16 18/45 (12/18/2021 10:10 AM EDT) Pathologist [facility] HPV mRNA E6/E7 rflx Not Detected Not Detected [facility] Comment: Methodology: Air Intercept Controller Supervisor-Mediated Amplification This assay detects E6/E7 viral messenger RNA (mRNA) from 14 high-risk HPV types (16,18,31,33,35,39,45,51,52,56,58,59,66,68). Cervical sources are required for HPV testing. If a vaginal source from a patient who has had a total hysterectomy with removal of cervix was submitted, please contact the testing laboratory for alternative testing options. For additional information, please refer to http://education.MyMundus/faq/UVZ367k9 (This link if provided for information/ educational purposes only.) THIS TEST WAS PERFORMED AT: [address] [place] [address] [address] [address] TAMEKA LOTT MD 12/18/2021 10:1 0 AM EDT us Ana Paula MaynardGillespie HISTORICAL/NON ORDERABLE LABS Fi nal Result [facility] from Last 3 Months or Most Recently Relevant to Health Maintenance [place] [facility] STAND ADULT Care Teams Healthcare Risk Control Consultant Relationship Specialty Start Date End Date Ellen Humphrey MD [address] [place] [address] PCP - General Family Medicine 11/04/17
--- OUTSIDE RECORDS SUMMARY | 2024-10-26 11:30 | XMS_ITS | Encounter Summary ---
Author Organization [employer] Address [address] [facility] [address] [place] [address] Care Team Providers Care Director Learning Name Role Phone Ellen Humphrey MD Primary Care Provide r Encounter Details Date Type Department Care Team ([facility] st Contact Info) Description 07/16/2024 Orders Only [facility] [address] [place] [address] Ellen Humphrey MD [address] [place] [address] Social History Tobacco Use Types Packs/Day Years [...] on file documented as of this encounter Visit Diagnoses Not on filedocumented in this encounter Additional Health Concerns Assessment Noted Time PHQ-9 Depression Total Score: 17 025 1:52 PM EDT documented as of this encounter Care Teams Director Learning Relationship Specialty Start Date End Date Ellen Humphrey MD [address] [place] [address] PCP - General Family Medicine 11/04/17 documented as of this encounter
--- OUTSIDE RECORDS SUMMARY | 2024-10-26 11:31 | XMS_ITS | Encounter Summary ---
Author Organization [employer] Address [address] [facility] 7t [place] [address] Care Team Providers Care Management Department Chair Name Role Phone Ellen Humphrey MD Primary Care Provide r Encounter Details Date Type Department Care Team (Latest Contact Info) Description 11/18/2019 Abstract [facility] CONVERSIONS Dental, Provider, DDS Social History [...] on filedocumented in this encounter Care Teams Management Department Chair Relationship Specialty Start Date End Date Ellen Humphrey MD [address] [place] [address] PCP - General Family Medicine 11/04/17 documented as of this encounter
--- OUTSIDE RECORDS SUMMARY | 2024-10-26 11:31 | XMS_ITS | Encounter Summary ---
Author Organization [employer] Address [address] [facility] 7t [place] [address] Care Team Providers Care Commercial Center Manager Name Role Phone Ellen Humphrey MD Primary Care Provide r Encounter Details Date Type Department Care Team (Latest Contact Info) Description 05/13/2021 Abstract [facility] CONVERSIONS Dental, Provider, DDS Social History [...] on filedocumented in this encounter Care Teams Commercial Center Manager Relationship Specialty Start Date End Date Ellen Humphrey MD [address] [place] [address] PCP - General Family Medicine 11/04/17 documented as of this encounter
--- OUTSIDE RECORDS SUMMARY | 2024-10-26 11:31 | XMS_ITS | Encounter Summary ---
Author Organization [employer] Address [address] [facility] [address] [facility] [facility] [address] [place] [address] Care Team Providers Care Tax Appraiser Name Role Phone Ellen Humphrey MD Primary Care Provide r Encounter Details Date Type Department Care Team (Latest Contact Info) Description 10/25/2024 Travel Social History Tobacco Use Types Packs/Day [...] documented as of this encounter Care Teams Tax Appraiser Relationship Specialty Start Date End Date Ellen Humphrey MD [address] [place] [address] PCP - General Family Medicine 11/04/17 documented as of this encounter
--- OUTSIDE RECORDS SUMMARY | 2024-10-26 11:31 | XMS_ITS | Encounter Summary ---
Author Organization [employer] Address [address] [facility] 7t [place] [address] Care Team Providers Care Electrical Systems Drafter Name Role Phone Ellen Humphrey MD Primary Care Provide r Encounter Details Date Type Department Care Team (Latest Contact Info) Description 05/17/2018 Abstract [facility] CONVERSIONS Dental, Provider, DDS Social History Tobacco [...] on filedocumented in this encounter Care Teams Electrical Systems Drafter Relationship Specialty Start Date End Date Ellen Humphrey MD [address] [place] [address] PCP - General Family Medicine 11/04/17 documented as of this encounter
== END 2024-10-26 10:01 | disposition home or self-care (01) ==
LOC: HO.HHCX 10:00
PROVIDERS: PCP Internal Medicine
DX: M25.571 Pain in right ankle and joints of right foot (principal)
CPT/HCPCS: 73630

== ENCOUNTER → 2024-10-26 10:06 | Outpatient (BNV) | payer MEDICAID, SELFPAY | PROVIDERS: PCP Internal Medicine; Visit Provider Radiology Diagnostic Radiology | DX: S90.31XA Contusion of right foot, initial encounter (principal); W19.XXXA Unspecified fall, initial encounter | CPT/HCPCS: 73630 ==

== ENCOUNTER 2025-01-24 12:15 | Outpatient (REF) | payer MEDICAID, SELFPAY ==
--- NOTE | ~2025-01-24 | MM_ITS ---
EXAMINATION: MM SCREENING DIGITAL BREAST TOMOSYNTHESIS, BILATERAL CLINICAL INFORMATION: Screening. Asymptomatic. COMPARISON: Mammography: Comparison is made with available priors TECHNIQUE: Digital breast mammography with tomosynthesis is performed in both the craniocaudal and mediolateral oblique views along with computer-aided detection (CAD). FINDINGS: The breasts are heterogeneously dense, which may obscure small masses. Bilateral scattered asymmetries are stable. There are no significant masses, abnormal calcifications, or other abnormalities. MM/MM tomosynthesis screening BI IMPRESSION: No mammographic evidence of malignancy. ASSESSMENT: BI-RADS Category 2: Benign RECOMMENDATION: Routine annual mammography screening. 1 year F/U This examination should not preclude the clinical evaluation of a suspicious palpable abnormality. This patient's information was entered into a reminder system with a target due date for their next mammogram. Electronically signed by: Nisreen Pimentel DO 01/25/2025 01:16 PM [facility]
== END 2025-01-24 12:16 | disposition home or self-care (01) ==
LOC: HO.MAMMO 12:15
PROVIDERS: PCP Internal Medicine; Visit Provider Internal Medicine
DX: Z12.31 Encounter for screening mammogram for malignant neoplasm of breast (principal)
CPT/HCPCS: 77063; 77067

== ENCOUNTER → 2025-01-24 13:00 | Outpatient (BNV) | payer MEDICAID, SELFPAY | PROVIDERS: PCP Internal Medicine; Visit Provider Internal Medicine | DX: Z12.31 Encounter for screening mammogram for malignant neoplasm of breast (principal) | CPT/HCPCS: 77063; 77067 ==

== ENCOUNTER 2025-02-21 13:02 | Outpatient (AMB) | payer MEDICAID, SELFPAY ==
[2025-02-21 13:04] VITALS: BP 122/76; BMI 31.5
--- NOTE | 2025-02-21 13:06 | MHC.OFFVIS ---
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 Allergies aspirin (ASPIRIN) Allergy (Unknown, Verified 02/21/25 13:06) RASH Medication List - Last Reconciled 02/21/25 by Ana Paula Hernandez CNM acetaminophen-codeine 300-30 mg 1 tab PO Q8H PRN amlodipine 10 mg PO DAILY budesonide-formoterol 80-4.5 mcg/actuation (Symbicort) 2 puffs inhalation BID clonazepam 0.5 mg PO DAILY duloxetine 30 mg PO DAILY fluticasone propionate 50 mcg/actuation 1 spray intranasal QAM fluticasone propionate 110 mcg/actuation 1 puff inhalation BID gabapentin 300 mg PO TID levalbuterol tartrate 45 mcg/actuation 1 puff inhalation Q6H PRN sennosides (Natural Senna Laxative) 17.2 mg (2 x 8.6 mg) PO BEDTIME PRN HPI HPI 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 She is not sexually active and has not been for many many years most recent testing was negative for STIs and she does not desire or need any other testing. Her last period was about a year ago she is not having any terri menopausal symptoms that bother her she deals with fibromyalgia and things with her nerves and she has a new therapist that she is trying to get used to but things are more unless stable she had a mammogram this month and it was good as well. She sees her primary care provider regularly. [place] walks most places [place]. Her only issue really that she discuss last year and she discusses with her primary also is occasional incontinence if she holds her urine. [facility] Medical History Fibromyalgia Tubular adenoma Tubular adenoma Depression Pernicious anemia GERD (gastroesophageal reflux disease) Asthma Surgical History Hx of colonoscopy Hx of endoscopy Family History Father History of heart attack Hx of type 1 diabetes mellitus Mother No problems noted. Maternal Aunt Uterus cancer Social History Household Members: None Housing: Apartment Are you a primary rn medicare to a significant other at home: No Do you presently have visiting nurse or other home services: No Alcohol intake: current Alcohol intake frequency: holidays/special occasions only Alcohol type: wine Patient Tobacco Use Status: Former Tobacco user Current occupational status: disabled Sexual orientation: Straight/Heterosexual Gender identity: Female Female Reproductive History Menstrual Age of Menarche: 11 Total pregnancies: 3 Number of Living Children: 3 Date of last pap smear: 12/18/21 Date of Mammogram: 01/24/25 Physical Exam Vital Signs: Last Vital Signs BP 122/76 02/21/25 13:04 BMI result Body Mass Index 31.5 Const General: healthy appearing, comfortable, no acute distress, well developed and alert Nutritional Appearance: average body habitus Orientation/consciousness: patient oriented x3 Limitations: no limitations HEENT Head: Yes normocephalic Neck Neck: Yes normal visual inspection Chest Chest palpation & inspection: normal inspection of the chest Breast/axilla inspection: normal inspection of the breasts and normal inspection of the axillae Breast/axilla palpation: normal palpation of the breasts and normal palpation of the axillae Resp Effort & Inspection: normal respiratory effort GI Inspection: Yes normal to inspection, No Abdominal wall edema and No distended Palpation (GI): Soft to palpation and nontender Other: Normal external exam vagina is pink and moist and well lubricated mild atrophic changes noted however well lubricated cervix appears nulliparous pink smooth healthy appearing with normal clear mucousy discharge uterus midposition mobile nontender adnexa nontender. Very good tone with Kegel with a sustained Kegel. General: Yes bladder normal to palpation External Female Exam: normal external appearance and normal appearance of the urethra Speculum Exam - Vagina: normal appearance of the vagina, normal palpation and normal vaginal discharge Speculum Exam - Cervix: normal appearance of the cervix, normal palpation and nontender Bimanual exam- vagina & uterus: normal bimanual exam, normal palpation, uterine size normal, bladder normal to palpation, consistency normal, normal palpation, uterine mobility normal, uterine shape normal, No Cervical tenderness present, non-tender and no cervical motion tenderness Bimanual Exam- Adnexa, other: normal adnexae, no masses, normal and No adnexal tenderness Neuro General: patient oriented x3 Results Reviewed Results Reviewed: Name: Ellen Giang Age/Sex: 51/F Attending: Ana Paula Hernandez CNM : 1970 Submitted by: Ana Paula Hernandez CNM Copies to: MR #: [id number] Status: DEP REF Collected: 12/18/21 Location: [facility] Received: 12/18/21 Interpretation Satisfactory for evaluation. Moderate inflammation. Negative for intraepithelial lesion or malignancy. HPV mRNA E6/E7: NOT DETECTED This assay detects E6/E7 viral messenger RNA (mRNA) from 14 high-risk HPV types (16, 18, 31, 33, 35, 39, 45, 51, 52, 56, 58, 59, 66, 68) HPV testing performed by [facility], [place], [place]. See reference laboratory pion of the EMR for entire report. Clinical Information LMP: Unknown Previous PAP test: 02/01/20, WNL Material Received ThinPrep-Cervical Electronically Signed By: LEANDRO Mcdermott (ASCP) 01/02/22 0843 The Pap Test is a screening procedure with the inherent possibility of both false negative and false positive results. Results should be interpreted in the context of historic and current clinical findings. Reliability of the Pap Test is enhanced by performing the test on a regular repetitive basis. Patient: Ellen Giang Age/Sex: 51/F MR#: [id number] Page 1 of 1 Assessment & Plan Assessment & Plan (1) Well woman exam with routine gynecological exam: Code(s): Z01.419 - Encounter for gynecological examination (general) (routine) without abnormal findings Category: Medical (2) Cervical cancer screening: Comment: 02/01/20 pap sat/nilm/HPV neg.//12/18/21 pap= neg w neg HPV. Code(s): Z12.4 - Encounter for screening for malignant neoplasm of cervix Category: Medical (3) Urinary retention with incomplete bladder emptying: Comment: See note declines PT referral discussed consciously trying to empty bladder at each void and not holding the urine for a long time.; excellent tone with Kegel again discussed strategies for taking advantage of clean bathrooms when available and not holding urine for long periods of time. Code(s): R33.9 - Retention of urine, unspecified Category: Medical (4) Breast cancer screening: Code(s): Z12.39 - Encounter for other screening for malignant neoplasm of breast Category: Medical Plan -----Discussed in this visit the following: healthy balanced diet, regular and consistent exercise, getting recommended health screens, doing the best she can for her particular health concerns, kegel exercises, pap smear screening and followup recommendations, mammography screening and SBE, normal changes in cycles in her life stage--- . Discussed her strategies for maintaining her best self. She tends to walk most places she lives by herself she keeps herself entertained with things on her computer and TikTok etc. she is getting used to her new therapist. Discussed taking advantage of clean bathrooms wherever she is so she does not hold her urine too long between voids as a strategy to help prevent any incontinence she has excellent tone with her Kegel discussed that she still has fairly good moist lubrication which is a benefit as well. Her next Pap will be due in 2026. Coding Level of Care Code Est Pt Prev Care 40-64y(95320) Diagnoses Well woman exam with routine gynecological exam Z01.419 Cervical cancer screening Z12.4 Urinary retention with incomplete bladder emptying R33.9 Breast cancer screening Z12.39
--- OUTSIDE RECORDS SUMMARY | 2025-02-21 16:56 | XMS_ITS | Encounter Summary ---
Author Organization [employer] Address [address] [place] [address] Care Team Providers Care Quantitative Developer Name Role Phone Ellen Humphrey MD Primary Care Provide r Encounter Details Date Type Department Care Team ([facility] st Contact Info) Description 07/16/2024 Orders Only [facility] MEDICINE [address] [place] [address] Ellen Humphrey MD [address] [place] [address] Social History Tobacco Use Types Packs/Day Years [...] Care Team (Late st Contact Info) Description 03/29/2025 2:15 PM EST Office Visit [facility] ADULT DENTAL [address] [place] [address] Louis, Sayda [address] [place] [address] documented as of this encounter Visit Diagnoses Not on filedocumented in this encounter Additional Health Concerns Assessment Noted Time PHQ-9 Depression Total Score: 17 025 1:52 PM EDT documented as of this encounter Care Teams Quantitative Developer Relationship Specialty Start Date End Date Ellen Humphrey MD [address] [place] [address] PCP - General Family Medicine 11/04/17 documented as of this encounter
--- OUTSIDE RECORDS SUMMARY | 2025-02-21 16:56 | XMS_ITS | Encounter Summary ---
Author Organization [employer] Address [address] [place] [address] Care Team Providers Care Model Technician Name Role Phone Ellen Humphrey MD Primary Care Provide r Encounter Details Date Type Department Care Team (Latest Contact Info) Description 11/18/2019 Abstract [facility] CONVERSIONS Dental, Provider, DDS Social History [...] Description 03/29/2025 2:15 PM EST Office Visit [facility] ADULT DENTAL [address] [place] [address] Louis, Sayda [address] [place] [address] documented as of this encounter Visit Diagnoses Not on filedocumented in this encounter Care Teams Model Technician Relationship Specialty Start Date End Date Ellen Humphrey MD [address] [place] [address] PCP - General Family Medicine 11/04/17 documented as of this encounter
--- OUTSIDE RECORDS SUMMARY | 2025-02-21 16:56 | XMS_ITS | Encounter Summary ---
Author Organization [employer] Address [address] [place] [address] Care Team Providers Care Chemist Intern Name Role Phone Ellen Humphrey MD Primary Care Provide r Encounter Details Date Type Department Care Team ([facility] st Contact Info) Description 12/03/2022 Abstract [facility] MEDICINE [address] [place], [place] [phone] Ellen Humphrey MD [address] [place], [place] [phone] Social History Tobacco Use Types Packs/Day Years [...] Description 03/29/2025 2:15 PM EST Office Visit [facility] ADULT DENTAL [address] [place], [place] [phone] Louis, Sayda [address] [place] [address] documented as of this encounter Procedures Procedure Name Priority Date/Time Associated Diagnosis Comments COLONOSCOPY Routine 07/27/2020 documented in this encounter Results * Hm Colonoscopy (07/27/2020) Colonoscopy Normal Normal Narrative Addis Galaviz - 07/27/2020 Recommended 3 years follow up us Historical Provider HEALTH MAINTENANCE Final Result documented in this encounter Visit Diagnoses Not on filedocumented in this encounter Additional Health Concerns Assessment Noted Time PHQ-9 Depression Total Score: 0 07/12/19 23 10:04 AM EDT documented as of this encounter Care Teams Chemist Intern Relationship Specialty Start Date End Date Ellen Humphrey MD [address] [place] [address] PCP - General Family Medicine 11/04/17 documented as of this encounter
--- OUTSIDE RECORDS SUMMARY | 2025-02-21 16:56 | XMS_ITS | Encounter Summary ---
Author Organization [employer] Address [address] [place] [address] Care Team Providers Care Vp [employer] Marketing [employer] Name Role Phone Ellen Humphrey MD Primary Care Provide r Encounter Details Date Type Department Care Team (Latest Contact Info) Description 05/13/2021 Abstract [facility] CONVERSIONS Dental, Provider, DDS Social History [...] Description 03/29/2025 2:15 PM EST Office Visit [facility] ADULT DENTAL [address] [place] [address] Louis, Sayda [address] [place] [address] documented as of this encounter Visit Diagnoses Not on filedocumented in this encounter Care Teams Vp [employer] Relationship Specialty Start Date End Date Ellen Humphrey MD [address] [place] [address] PCP - General Family Medicine 11/04/17 documented as of this encounter
--- OUTSIDE RECORDS SUMMARY | 2025-02-21 16:56 | XMS_ITS | Encounter Summary ---
Author Organization [employer] Address [address] [place] [address] Care Team Providers Care Health Club Manager Name Role Phone Ellen Humphrey MD Primary Care Provide r Encounter Details Date Type Department Care Team (Latest Contact Info) Description 05/17/2018 Abstract [facility] CONVERSIONS Dental, Provider, DDS Social [...] Description 03/29/2025 2:15 PM EST Office Visit [facility] ADULT DENTAL [address] [place] [address] Louis, Sayda [address] [place] [address] documented as of this encounter Visit Diagnoses Not on filedocumented in this encounter Care Teams Health Club Manager Relationship Specialty Start Date End Date Ellen Humphrey MD [address] [place] [address] PCP - General Family Medicine 11/04/17 documented as of this encounter
--- OUTSIDE RECORDS SUMMARY | 2025-02-21 16:56 | XMS_ITS | Clinical Summary ---
Author Organization [employer] Address [address] [place] [address] Care Team Providers Care Electrician Yard Name Role Phone Ellen Humphrey MD Primary Care Provide r Allergies Active Allergy Reactions Criticality Noted Date Comments Aspirin Rash Low 05/24/2010 Medications fluticasone (Flonase) 50 MCG/ACT nasal sprayIndications:S easonal allergies INSTILL 2 SPRAYS IN EACH NOSTRIL ONCE DAILY 48 g 1 3 Active DULoxetine (Cymbalta) [address] capsule Take 30 mg by mouth in the morning. 3 Active clonazePAM (KlonoPIN) 0.5 MG tablet TAKE 1 TABLET BY MOUTH ONCE DAILY NEEDED 3 Active levalbuterol (Xopenex) 45 MCG/ACT inhaler INHALE 1 PUFF EVERY 6 HOURS NEEDED FOR WHEEZING 3 Active triamcinolone (Kenalog) 0.1 % creamIndications:R rosalia Apply topically if needed in the morning and at bedtime (pain and swelling). 30 g 5 Active chlorhexidine (Peridex) 0.12 % solutionIndication s:Dental abscess,Symptomati c apical periodontitis Swish 15 mL morning and night for 1 minute. Spit, do not swallow. Do not eat or drink for 30 minutes following use. 473 mL 5 Active montelukast (Singulair) 10 MG tablet TAKE 1 TABLET BY MOUTH EVERY EVENING 90 tablet 1 02/07/2025 10:34 AM EST 5 Active cetirizine (ZyrTEC) 10 MG tablet TAKE 1 TABLET BY MOUTH EVERY DAY 90 tablet 1 02/07/2025 10:34 AM EST 5 Active olmesartan (Benicar) 20 MG tabletIndications: Primary hypertension Take 1 tablet (20 mg) by mouth Once per day. 90 tablet 1 02/07/2025 8:59 AM EST 5 10/14/19 26 Active acetaminophen (Tylenol 8 Hour) 650 MG ER tabletIndications: Acute right ankle pain Take 1 tablet (650 mg) by mouth every 8 (eight) hours if needed for mild pain. Do not crush, chew, or split. 30 tablet 02/07/2025 10:34 AM EST 5 Active gabapentin (Neurontin) 300 MG capsule TAKE 1 CAPSULE BY MOUTH THREE TIMES DAILY 90 capsule 3 5 Active albuterol (2.5 MG/3ML) 0.083% nebulizer solutionIndication s:Moderate persistent asthma, unspecified whether complicated INHALE 1 AMPULE USING A NEBULIZER EVERY 4 HOURS NEEDED FOR WHEEZING 90 mL 3 02/07/2025 10:34 AM EST 5 Active Conj Estrogens-Bazedoxi fene (Duavee) 0.45-20 MG tabletIndications: Vasomotor symptoms due to menopause Take 1 tablet by mouth Once per day. 30 tablet 2 5 Active ketoconazole (NIZOral) 2 % shampooIndications :Scalp pain Apply topically 2 (two) times a week. 120 mL 1 01/26/2025 12:32 PM EST 5 Active Active Problems Problem Noted Date Diagnosed Date Vasomotor symptoms due to menopause 01/26/2025 Scalp pain 01/26/2025 Costochondritis 01/26/2025 Acute bronchospasm 11/28/2024 Anxiety 11/28/2024 Calcified granuloma of lung 11/28/2024 Chest wall muscle strain 11/28/2024 Heart murmur 11/28/2024 Hx of endoscopy 11/28/2024 JIMBO (stress urinary incontinence), male 11/29/19 25 Tubular adenoma 11/28/2024 URI (upper respiratory infection) 11/28/2024 Urinary retention with incomplete bladder emptyi ng 11/28/2024 Moderate persistent asthma without complication 10/13/2024 Assessment & Plan (10/13/2024 2:52 PM EDT): Improved continue to follow-up with rayon winder Chronic pain of left knee 07/08/2024 Assessment [...] regimen Easy bruising 10/22/2017 Benzodiazepine dependence, continuous ([facility]) 12/22/2016 Assessment & Plan (10/13/2024 2:52 PM [...] Encounters Date Type Department Care Team Description 02/01/2025 [facility] [place] [address] Ellen Humphrey MD 01/27/2025 Orders Only [facility] [place] [address] Ellen Humphrey MD 01/26/2025 11:00 AM EST Office Visit [facility] [place] [address] Ellen Humphrey MD Scalp pain (Primary Dx); Vasomotor symptoms due to menopause; Costochondritis; Dietary counseling; Exercise counseling; Class 1 obesity due to excess calories with serious comorbidity and body mass index (BMI) of 31.0 to 31.9 in adult; Encounter for immunization 01/26/2025 Travel 01/25/2025 Telephone [facility] [address] [place] [phone] Ellen Humphrey MD chart prep 01/24/2025 Orders Only [address] [address] Ellen Humphrey MD 01/12/[address] [address] Ellen Humphrey MD Moderate persistent asthma, unspecified whether complicated 01/11/2025 Patient Outreach [address] [phone] Ellen Humphrey MD Pre-visit Planning (SDOH screening completed on 04/18/2024) 11/28/2024 9:30 AM EDT Office Visit [facility] [address] [place] [address] [phone] Sayda Myers Periodontal disease (Primary Dx); Dental calculus; Gingival bleeding from Last 3 Months Immunizations Immunization Administration Dates Next Due Hep B, adult 05/14/2010,10/16/2009,09/11/2009 Influenza Injectable Quadriv alant Preservative Free IIV4 MDCK 06/21/2021 Influenza injectable quadriv alent IIV4 with preservative 11/20/2017,11/16/2015 Influenza injectable quadriv alent preservative free 02/09/2023,01/21/2022,01/04/2020,12/17,12/22/2016,11/23/2014 Influenza, IIV3, injectable 11/22/2013, 1 Influenza, Split (incl. jaya fied surface antigen) 11/10/2012,01/26/2012 Influenza, seasonal, injecta ble, preservative free 01/26/2025,12/02/2023 Pfizer Covid-19 Vaccine 12+ 12/02/2023 Pneumococcal Conjugate [...] Answer Date Recorded Patient Health Questionnaire-9 Score 7 01/26/2025 Patient Health Questionnaire-9 Score 7 01/26/2025 Last PHQ-9: Questionnaire Data Not on file 1 03/29/2024 Housing Stability Answer Date Recorded What is [...] Answer Date Recorded Patient Health Questionnaire-2 Score 1 01/26/2025 Internet Access Answer Date Recorded Internet Access [...] Sign Reading Time Taken Comments Blood Pressure 122/78 01/26/2025 11:05 AM EST Pulse 95 01/26/2025 11:05 AM EST Temperature 33.3 C (92 F) 01/26/2025 11:05 AM EST Respiratory Rate 17 01/26/2025 11:05 AM EST Oxygen Saturation 98% 10/25/2024 5:08 PM EDT Inhaled Oxygen Concentration - - Weight 78.3 kg (172 lb 9.6 oz) 01/26/2025 11:05 AM EST Height 157.5 cm (5' 2 ) 01/26/2025 11:05 AM EST Body Mass Index 31.57 01/26/2025 11:05 AM EST Plan of Treatment Upcoming Encounters Date Type Department Care Team (Late st Contact Info) Description 03/29/2025 2:15 PM EST Office Visit [facility] [address] [place] [address] Louis, Sayda [address] [place] [address] Health Maintenance Due Date Last Done Comments CT Colonography 1969 FIT DNA/Cologuard 1970 FIT 1970 FOBT 1970 HIV Screening 1970 Sigmoidoscopy 1970 Hepatitis C Screening 1987 RSV Patients and Patients Aged 60 years or older (1 - Risk 50-74 years 1-dose series) 2019 COVID-19 Vaccine ( season) 2024 12/02/2023, 09/25/2021, 09/03/2020, Additional history exists Dental Oral Exam 12/10/2024 06/09/2024, 08/2023, 03/27/2023, Additional history exists Dental X-Ray: Bitewings 12/31/2024 12/31/19 24, 09/18/2022, 05/13/2021, Additional history exists Alcohol/Substance Use Screening 04/18/2025 04/18/2024 SDOH Screening 04/18/2025 04/18/2024 Dental Prophylaxis 05/30/2025 11/28/2024, 0 04/04/2024, 12/31/2023, Additional history exists Disability Screening 07/08/2025 07/08/2024 Mammogram 01/24/2026 01/24/2025, 12/25, 01/19/2024, Additional history exists Depression Screening 01/26/2026 01/26/2025, 01/27/20 Tobacco Screening 01/26/2026 01/26/2025 Colonoscopy 11/15/2026 11/16/2023, 06/0 05/2020, 07/27/2020 Colorectal Cancer Screening 11/15/2026 Cervical Cancer Screening 12/18/2026 HPV/Cotest 12/18/2026 12/18/2021, 11/24, 01/31/2020, Additional history exists Pap Smear 12/18/2026 Dental X-Ray: Full Mouth 06/11/2027 025, 09/18/2022, 05/17/2018, Additional history exists Lipid Panel 04/30/2028 05/01/2023, 06/24, 09/25/2021, Additional history exists DTaP/Tdap/Td Vaccines (3 - Td or Tdap) 10/13/2034 10/13/2024, 11/10/2012, 06/23/2008, Additional history exists Hepatitis B Vaccines Completed 05/14/2010, 10/16/2009, 09/11/2009 Zoster Vaccines Completed 08/23/2021, 06/21/2021 Pneumococcal Vaccine: 50+ Years Completed 09/02/2023, 10/02/2005 Influenza Vaccine Completed 01/26/2025, , 02/09/2023, Additional history exists HIB Vaccines Aged Out [...] Procedure Name Priority Date/Time Associated Diagnosis Comments BI MAMMOGRAM SCREENING TOMOSYNTHESIS BILATERAL Routine 01/24/2025 12:16 PM EST CASE PRESENTATION, DETAILED AND EXTENSIVE TREATMENT PLANNING Routine 11/28/2024 9:30 AM EDT Periodontal disease Dental calculus Gingival bleeding ORAL HYGIENE INSTRUCTIONS Routine 11/28/2024 9:30 AM EDT Periodontal disease Dental calculus Gingival bleeding PROPHYLAXIS - ADULT Routine 11/28/2024 9 :30 AM EDT Periodontal disease Dental calculus Gingival bleeding PANORAMIC RADIOGRAPHIC IMAGE Routine 06/09/2024 9:00 AM EDT PERIODIC ORAL EVALUATION - ESTABLISHED PATIENT Routine 06/09/2024 9:00 AM EDT BITEWINGS - 4 RADIOGRAPHIC IMAGES Routine 12/31/2023 8:00 AM EST Periodontal disease Dental calculus Gingival bleeding Acute gingival inflammation HM COLONOSCOPY Routine 11/16/2023 LIPID PANEL, STANDARD Routine 05/01/2023 10:16 AM EST Chronic fatigue ZZZ HISTORICAL HPV E6/E7 RFLX NEGRITA 16 18/45 Routine 12/18/2021 10:10 AM EDT from Last 3 Months or Most Recently Relevant to Health Maintenance Results * BI Mammogram Screening Tomosynthesis Bilateral (01/24/2025 12:16 PM EST) Anatomical Region Laterality Modality Breast Bilateral Mammography 01/24/2025 12:1 6 PM EST Narrative 01/25/2025 1:19 PM EST [facility] [address] [place] [address] Mammography Report Signed Patient: Ellen Giang MR#: [id number] : 1970 Acct:[id number] Age/Sex: 54 / F ADM Date: 01/24/25 Loc: [facility] Attending Dr: Ellen Shukla MD Ordering Physician: Ellen Humphrey MD Results: 2Benign Date of Service: 01/24/25 Follow Up: 1 Year From Orig inal Mammogram Procedure(s): MM tomosynthesis screening BI Accession Number(s): [id number] cc: Ellen Humphrey MD Reason For Exam: SCREENING EXAMINATION: MM SCREENING DIGITAL BREAST TOMOSYNTHESIS, BILATERAL CLINICAL INFORMATION: Screening. Asymptomatic. COMPARISON: Mammography: Comparison is made with available priors TECHNIQUE: Digital breast mammography with tomosynthesis is performed in both the craniocaudal and mediolateral oblique views along with computer-aided detection (CAD). FINDINGS: The breasts are heterogeneously dense, which may obscure small masses. Bilateral scattered asymmetries are stable. There are no significant masses, abnormal calcifications, or other abnormalities. MM/MM tomosynthesis screening BI IMPRESSION: No mammographic evidence of malignancy. ASSESSMENT: BI-RADS Category 2: Benign RECOMMENDATION: Routine annual mammography screening. 1 year F/U This examination should not preclude the clinical evaluation of a suspicious palpable abnormality. This patient's information was entered into a reminder system with a target due date for their next mammogram. Electronically signed by: Nisreen Pimentel DO 01/25/2025 01:16 PM [facility] Dictated By: Nisreen Pimentel DO Signed By: <Electronically signed by Nisreen Pimentel DO in OV> 01/25/25 1316 DD/ 1216 TD/TT: 01/24/25 [address] [place] [address] Installer: Procedure Note Donotuseinterpreter, Image - 01/25/2025 [facility] [address] [place] [address] Mammography Report Signed Patient: Ellen GiangMR#: [id number] : 1970Acct:[id number] Age/Sex: 54 / FADM Date: 01/24/25 Loc: RETA Attending Dr: Ellen Shukla MD Ordering Physician: Ellen Humphrey MDResults: 2Benign Date of Service: 01/24/25Follow Up: 1 Year From Orig inal Mammogram Procedure(s): MM tomosynthesis screening BI Accession Number(s): [id number] cc: Ellen Humphrey MD Reason For Exam: SCREENING EXAMINATION: MM SCREENING DIGITAL BREAST TOMOSYNTHESIS, BILATERAL CLINICAL INFORMATION: Screening. Asymptomatic. COMPARISON: Mammography: Comparison is made with available priors TECHNIQUE: Digital breast mammography with tomosynthesis is performed in both the craniocaudal and mediolateral oblique views along with computer-aided detection (CAD). FINDINGS: The breasts are heterogeneously dense, which may obscure small masses. Bilateral scattered asymmetries are stable. There are no significant masses, abnormal calcifications, or other abnormalities. MM/MM tomosynthesis screening BI IMPRESSION: No mammographic evidence of malignancy. ASSESSMENT: BI-RADS Category 2: Benign RECOMMENDATION: Routine annual mammography screening. 1 year F/U This examination should not preclude the clinical evaluation of a suspicious palpable abnormality. This patient's information was entered into a reminder system with a target due date for their next mammogram. Electronically signed by: Nisreen Pimentel DO 01/25/2025 01:16 PM EST RP Dictated By: Nisreen Pimentel DO Signed By: <Electronically signed by Nisreen Pimentel DO in OV> 01/25/25 1316 DD/ 1216 TD/TT: 01/24/25 [address] [place] [address] Installer: Ellen Shukla MD IMG BI PROCEDURES Fin al Result * Hm Colonoscopy (11/16/2023) Colonoscopy Normal Normal Narrative Addis Galaviz - 11/16/2023 Recommended 3 years . See see external hospital admission note on 11/16/2023. Reviewed colonoscopy letter and follow up was confirmed for 3 years Historical Provider HEALTH MAINTENANCE Final Result * (ABNORMAL) Lipid Panel, Standard (05/01/2023 10:16 AM EST) Triglycerides 80 <150 mg/dL [facility] Comment:Desirable Triglyceri de: less than 150 mg/dLBorderline High Triglyceride 150-199 mg/dLHigh Triglyceride: 200-499 mg/dLVery High Triglyceride: greater than or equal to 5OO mg/dL Cholesterol 215(H) <200 mg/dL [facility] Comment:Desirable Cholestero l: less than 200 mg/dLBorderline High Cholesterol: 200-239 mg/dLHigh Cholesterol: greater than 239 mg/dL LDL Cholesterol Calculated 125(H) <100 mg/dL [facility] Comment:Desirable LDL: less than 100 mg/dLNear Optimal/Above Optimal LDL: 110- 129 mg/dLBorderline High LDL: 130-159 mg/dLHigh LDL: 160-189 mg/dLVery High LDL: greater than or equal to 190 mg/dL HDL Cholesterol 74 >40 mg/dL [facility] Comment:Desirable HDL: great er than 40 mg/dL Note: This HDL assay may give artificially low results in patients with liver disease. Blood Venous blood specimen / Unknown 05/01/2023 10:16 AM EST 05/01/2023 11:29 AM EST Ellen Shukla MD LAB BLOOD ORDERABLES Final Result [facility] [address] [place] [phone] * HPV E6/E7 RFLX NEGRITA 16 18/45 (12/18/2021 10:10 AM EDT) HPV mRNA E6/E7 rflx Not Detected Not Detected [facility] Comment: Methodology: Core Winding Operator-Mediated Amplification This assay detects E6/E7 viral messenger RNA (mRNA) from 14 high-risk HPV types (16,18,31,33,35,39,45,51,52,56,58,59,66,68). Cervical sources are required for HPV testing. If a vaginal source from a patient who has had a total hysterectomy with removal of cervix was submitted, please contact the testing laboratory for alternative testing options. For additional information, please refer to http://education.[employer]/faq/CVH147b1 (This link if provided for information/ educational purposes only.) THIS TEST WAS PERFORMED AT: [employer] [address] [place] [address],[place] [address] TAMEKA LOTT MD 12/18/2021 10:1 0 AM EDT [facility] HISTORICAL/NON ORDERABLE LABS Fi nal Result [facility] from Last 3 Months or Most Recently Relevant to Health Maintenance Insurance [place] [facility] MEDICAID STAND ADULT Care Teams Electrician Yard Relationship Specialty Start Date End Date Ellen Humphrey MD [address] [place] [address] PCP - General Family Medicine 11/04/17
--- OUTSIDE RECORDS SUMMARY | 2025-02-21 16:56 | XMS_ITS | Encounter Summary ---
Author Organization [employer] Address [address] [place] [address] Care Team Providers Care Manager Of Case Name Role Phone Ellen Humphrey MD Primary Care Provide r Encounter Details Date Type Department Care Team ([facility] st Contact Info) Description 01/27/2025 Orders Only [facility] [address] [place] [address] Ellen Humphrey MD [address] [place] [address] Social History Tobacco Use Types Packs/Day Years [...] Description 03/29/2025 2:15 PM EST Office Visit [facility] [address] [place] [address] Louis, Sayda [address] [place] [address] documented as of this encounter Visit Diagnoses Not on filedocumented in this encounter Additional Health Concerns Assessment Noted Time PHQ-9 Depression Total Score: 7 01/27/20 25 11:07 AM EST documented as of this encounter Care Teams Manager Of Case Relationship Specialty Start Date End Date Ellen Humphrey MD [address] [place] [address] PCP - General Family Medicine 11/04/17 documented as of this encounter
== END 2025-02-21 13:42 | disposition home or self-care (01) ==
LOC: HO.HWSM 13:02
PROVIDERS: PCP Internal Medicine; Visit Provider Advanced Practice Midwife
DX: Z01.419 Encounter for gynecological examination (general) (routine) without abnormal findings (principal); Z12.4 Encounter for screening for malignant neoplasm of cervix; R33.9 Retention of urine, unspecified; Z12.39 Encounter for other screening for malignant neoplasm of breast
CPT/HCPCS: 99396; 99459

== ENCOUNTER → 2025-02-21 13:02 | Outpatient (BNVA) | payer MEDICAID, SELFPAY | PROVIDERS: PCP Internal Medicine; Visit Provider Advanced Practice Midwife | DX: Z01.419 Encounter for gynecological examination (general) (routine) without abnormal findings (principal); R33.9 Retention of urine, unspecified | CPT/HCPCS: 99396 ==